=== PATIENT | female | born 1940 ===

== ENCOUNTER → 2019-01-11 14:22 | Outpatient (CLI) | payer MEDICARE, OTHER, SELFPAY ==
--- NOTE | 2019-01-11 | DI.MG.S_ITS ---
BILATERAL DIGITAL SCREENING MAMMOGRAM 3D/2D WITH CAD: 01/11/2019 CLINICAL: Baseline exam. Routine screening. Family history of breast cancer. No prior exams were available for comparison. There are scattered fibroglandular elements in both breasts. Current study was also evaluated with a Computer Aided Detection (CAD) system. Of note, the mediolateral oblique views were suboptimal in positioning as the patient was not able to be positioned for desired images; however, the best possible images were obtained. No significant masses, calcifications, or other findings are seen in either breast. IMPRESSION: NEGATIVE There is no mammographic evidence of malignancy. A 1 year screening mammogram is recommended. This exam was interpreted at Station ID: [id number]. NOTE: For mammograms, a report in lay terms will be sent to the patient. Approximately 15% of breast malignancies will not be visualized mammographically. In the management of a palpable breast mass, a negative mammogram must not discourage biopsy of a clinically suspicious lesion. Electronically Signed By: Valentin pierrey/:01/19/2019 07:24:55 letter sent: Normal Exam ACR BI-RADS Category 1: Negative [id number]
== END ==
PROVIDERS: Visit Provider Physician Assistant
DX: Z12.31 Encounter for screening mammogram for malignant neoplasm of breast (principal)
CPT/HCPCS: 77063; 77067

== ENCOUNTER → 2019-07-05 14:38 | Outpatient (ROUT) | payer MEDICARE, OTHER, SELFPAY ==
[2019-07-05 14:49] LABS: Add Manual Diff / Slide Review NO; Basophils Absolute Auto 100 /uL (0-100); Basophils Percent Auto 0.9 % (0-2); Eosinophils Absolute Auto 300 /uL (0-450); Hematocrit 46.1 % (36-46); Hemoglobin 15.9 g/dL (12.0-16.0); Lymphocytes Absolute Auto 2500 /uL (1100-4500); Lymphocytes Percent Auto 28.2 % (25-40); Mean Corpuscular HGB Conc 34.5 % (30-36); Mean Corpuscular Hemoglobin 32.6 PG (26-34); Mean Corpuscular Volume 94.5 fL (80-100); Monocytes Absolute Auto 700 /uL (0-900); Monocytes Percent Auto 7.9 % (3-14); Neutrophils Absolute Auto 5300 /uL (1500-7000); Platelet Count 191 X10^3/uL (150-400); Red Blood Cell Count 4.88 X10^6/uL (4.0-5.2); Red Cell Distribution Width 13.3 % (11.6-14.8); White Blood Cell Count 8.8 X10^3/uL (4.5-11.0)
[2019-07-05 15:44] LABS: Alanine Aminotransferase 14 IU/L (<35); Albumin 4.2 g/dL (3.5-5.0); Albumin Globulin Ratio 1.5 (1.0-2.8); Alkaline Phosphatase 55 U/L (38-126); Aspartate Aminotransferase 19 IU/L (14-36); BUN Creatinine Ratio 18.8 (6-22); Bilirubin Total 0.5 mg/dL (0.2-1.3); Blood Urea Nitrogen 15 mg/dL (7-17); Calcium 9.5 mg/dL (8.4-10.2); Carbon Dioxide 33 mmol/L (22-32); Chloride 97 mmol/L (98-107); Cholesterol 136 mg/dL (140-199); Estimated Glomerular Filt Rate > 60.0 mL/min (>60); Globulin 2.8 g/dL (1.7-4.1); Glucose 91 mg/dL (80-110); HDL Cholesterol 51 mg/dL (40-60); HEMOLYSIS 15 (0-50); LDL Cholesterol Calculated 60 mg/dL (<100); Potassium 3.7 mmol/L (3.4-5.1); Sodium 139 mmol/L (137-145); Triglycerides 125 mg/dL (35-150)
== END ==
PROVIDERS: Visit Provider Physician Assistant
DX: E78.5 Hyperlipidemia, unspecified (principal); I10 Essential (primary) hypertension
CPT/HCPCS: 80053; 80061; 85025

== ENCOUNTER 2019-08-02 14:21 | Emergency (ER) | payer MEDICARE, OTHER, SELFPAY ==
[2019-08-02 14:37] VITALS: BP 134/80; PULSE 108; RESP 17; TEMP 37; O2SAT 95; BMI 28.3
[2019-08-02 15:05] VITALS: BP 111/66; PULSE 93; RESP 17; O2SAT 94
--- NOTE | 2019-08-02 15:29 | DI.RAD.S_ITS ---
PROCEDURE: XR CHEST 2V INDICATIONS: R side chest discomfort TECHNIQUE: 2 views of the chest were acquired. COMPARISON: [facility], , CHEST 2 VIEW, 10/28/2010, 20:26. FINDINGS: Surgical changes and devices: None. Lungs and pleura: Lungs are clear. No pleural effusions or pneumothorax. Mediastinum: Mediastinal contours are normal. Heart size is normal. Bones and chest wall: No suspicious bony abnormalities. Soft tissues appear unremarkable. IMPRESSION: Negative chest. No acute cardiopulmonary process is evident. Dictated by: Lonny Corbin M.D. on 08/02/2019 at 15:05 Approved by: Lonny Corbin M.D. on 08/02/2019 at 15:09
--- NOTE | 2019-08-02 15:34 | ED_ITS ---
HPI - Chest Pain <VALENTINA Orellana - Last Filed: 08/02/19 20:30> General Chief Complaint: Chest Pain Stated Complaint: Chest pain and aching across upper body Time Seen by Provider: 08/02/19 14:49 Source: patient Mode of arrival: Ambulatory Limitations: no limitations History of Present Illness HPI narrative: This is a 79-year-old female, smoker, who presents to ED with chief complain of right-sided chest discomfort but not pain which started at rest last night. Patient denies any associated symptoms such as nausea, vomiting, sweats, breathing difficulty, lightheadedness. She reports has been working on quilting more recently and describes as pulled muscle like. Patient reports 1/10 muscle like aches without provoking or relieving factors. She went to bed and woke up with same discomfort but now it has been resolved since she came into ED. patient reports she has been coughing but not more than usual. She denies fever, chills, exposure to recent illness, or foreign travel. Patient denies recent weight gain, leg swelling. Patient reports she had sore throat a day or 2 ago but now it has improved. Patient contacted her primary care physician and was instructed to come in to ED for an evaluation. Patient states I am terrified for this virus. Patient has history of hypertension, hyperlipidemia, COPD. Related Data Home Medications Medication Instructions Recorded Confirmed albuterol sulfate 1 inh INHALATION PRN PRN 08/02/19 08/02/19 amlodipine 5 mg PO DAILY 08/02/19 08/02/19 beclomethasone dipropionate [Qvar 1 inh INHALATION BID 08/02/19 08/02/19 RediHaler] chlorthalidone 25 mg PO DAILY 08/02/19 08/02/19 lisinopril 20 mg PO BID 08/02/19 08/02/19 simvastatin 40 mg PO DAILY 08/02/19 08/02/19 Allergies Allergy/AdvReac Type Severity Reaction Status Date / Time No Known Drug Allergies Allergy Verified 08/02/19 14:36 Review of Systems <VALENTINA Orellana - Last Filed: 08/02/19 20:30> Review of Systems Narrative: General: Denies fever, chills, fatigue, malaise, sweats. HEENT: Denies sinus pain, ear pain, sore throat, difficulty swallowing, dizziness. Respiratory: Denies dyspnea, cough, wheezing, hemoptysis, sputum. Cardiovascular: See HPI Gastrointestinal: Denies nausea, vomiting, abdominal pain, diarrhea, constipation, melena. : Denies dysuria, frequency, incontinence, hematuria, urinary retention. Musculoskeletal: Denies weakness, joint pain or bony pain. Skin: Denies rash, skin lesions, or other. Neurologic: Denies weakness, headache, numbness, change in speech, confusion, seizures, incoordination. Psychiatric: No concerning psychosocial issues. 12-point review of systems is negative except for those stated above. Patient History <VALENTINA Orellana - Last Filed: 08/02/19 20:30> Medical History COPD (chronic obstructive pulmonary disease) (Acute) Hyperlipidemia (Acute) Hypertension (Acute) Surgical History H/O shoulder surgery (Acute) Social History Smoking Status: Current every day smoker Smoking Status: Current every day smoker Substance Use Type: does not use Exam <VALENTINA Orellana - Last Filed: 08/02/19 20:30> Narrative Exam Narrative: GEN: Alert, oriented x 3, well appearing and nourished, and in no acute distress. Head: Normal cephalic, atraumatic. No scalp or temporal tenderness, palpable mass or rash. EYES: Pupils are equal, round, and reactive to light and accommodation. Extraocular muscles are intact bilaterally. There is no subconjunctival hemorrhage, exudate and sclera non-icteric. ENT: Bilateral auditory canals and tympanic membranes clear. Hearing grossly intact. Nose without bleeding, purulent discharge or deviation. Facial sinuses nontender to palpate. Mucous membrane moist, no mucosal lesion. Throat without erythema, tonsillar hypertrophy or exudate. Uvula in midline, airway patent. Neck: Trachea in midline. No JVD, non-tender without lymphadenopathy. No masses or thyroid megaly. Supple, non-tender and no meningeal signs. CARDIAC: Normal regular rate and rhythm without murmurs, gallops, or rubs. No chest wall tenderness. No peripheral edema, cyanosis or pallor. Capillary refill is less than 2 seconds. RESPIRATORY: Lungs are clear to auscultate bilaterally. No cough, wheezes, rales, or rhonchi. No stridor, respiratory distress, increase work of breathi ng, or accessary muscle used. ABD: Abdomen soft, nontender and non-distended. No guarding or rebound tenderness to palpate. Bowel sounds are normal in all 4 quadrants. There is no palpable masses or organomegaly. EXT: Full painless ROM of all extremities with no loss of sensation, strength, effusion or edema. SKIN: Warm, dry, normal color for patient. No erythema, lesions or rash over visible areas. BACK: Nontender without deformity or crepitance. No flank tenderness. NEUROLOGICAL: Alert and oriented to place, time and person. Sensation and motor function intact bilaterally. No facial droops, dysphasia. PSYCHIATRIC: Good judgement and reason, without hallucinations, abnormal affect or abnormal behaviors during the examination. Initial Vital Signs Initial Vital Signs: Vital Signs Temperature 98.6 F 08/02/19 14:37 Pulse Rate 108 H 08/02/19 14:37 Respiratory Rate 17 08/02/19 14:37 Blood Pressure 134/80 08/02/19 14:37 Pulse Oximetry 95 08/02/19 14:37 <Cameron Matthew DO - Last Filed: 08/04/19 06:59> Initial Vital Signs Initial Vital Signs: Vital Signs Temperature 98.6 F 08/02/19 14:37 Pulse Rate 108 H 08/02/19 14:37 Respiratory Rate 17 08/02/19 14:37 Blood Pressure 134/80 08/02/19 14:37 Pulse Oximetry 95 08/02/19 14:37 Scores <[facility] - Last Filed: 08/02/19 20:30> GCS Caroline coma scale eye opening: Spontaneous Caroline coma scale verbal response: Orientated [place] coma scale motor response: Obey commands Caroline coma scale total score: 15 HEART Score Heart Score history: Slightly Suspicious Heart Score EKG: Normal Heart Score Age: > or = 65 years old Heart Score risk factors: 1-2 risk factors Course <[facility]oe - Last Filed: 08/02/19 20:30> Orders Ordered: Discontinued Medications Potassium Chloride (Klor-Con M20) 40 meq PO NOW ONE Stop: 08/02/19 16:47 Last Admin: 08/02/19 16:57 Dose: 40 meq Documented by: TITA Vital Signs Vital signs: Vital Signs - 8 hr 08/02/19 14:37 08/02/19 15:05 08/02/19 15:45 Temperature 98.6 F Pulse Rate 108 H 93 H 92 H Respiratory Rate 17 17 20 Blood Pressure 134/80 Blood Pressure [Left Arm] 111/66 131/69 Pulse Oximetry 95 94 96 08/02/19 16:05 08/02/19 17:00 Temperature Pulse Rate 87 92 H Respiratory Rate 17 20 Blood Pressure Blood Pressure [Left Arm] 119/70 116/83 Pulse Oximetry 94 95 <Cameron Matthew DO - Last Filed: 08/04/19 06:59> Orders Ordered: Discontinued Medications Potassium Chloride (Klor-Con M20) 40 meq PO NOW ONE Stop: 08/02/19 16:47 Last Admin: 08/02/19 16:57 Dose: 40 meq Documented by: TITA Vital Signs Vital signs: Vital Signs - 8 hr 08/02/19 14:37 08/02/19 15:05 08/02/19 15:45 Temperature 98.6 F Pulse Rate 108 H 93 H 92 H Respiratory Rate 17 17 20 Blood Pressure 134/80 Blood Pressure [Left Arm] 111/66 131/69 Pulse Oximetry 95 94 96 08/02/19 16:05 08/02/19 17:00 Temperature Pulse Rate 87 92 H Respiratory Rate 17 20 Blood Pressure Blood Pressure [Left Arm] 119/70 116/83 Pulse Oximetry 94 95 MDM - Chest Pain <VALENTINA Orellana - Last Filed: 08/02/19 20:30> Differential Diagnosis Differential diagnosis: Likely atypical chest pain, costochondritis and other Medical Records Data Attestation: I reviewed the patient's medical records. Lab Data Attestation: I reviewed the patient's lab results. Result diagrams: 08/02/19 14:58 08/02/19 14:58 Labs: Lab Results 08/02/19 08/02/19 Range/Units 14:58 14:58 WBC 14.5 H (4.5-11.0) X10^3/uL RBC 5.08 (4.0-5.2) X10^6/uL Hgb 16.5 H (12.0-16.0) g/dL Hct 47.6 H (36-46) % MCV 93.8 (80-100) fL MCH 32.6 (26-34) PG MCHC 34.7 (30-36) % RDW 13.1 (11.6-14.8) % Plt Count 260 (150-400) X10^3/uL Neut % (Auto) 79.1 H (50-75) % Lymph % (Auto) 13.8 L (25-40) % [place] % (Auto) 5.3 (3-14) % Eos % (Auto) 1.2 L (2-4) % Baso % (Auto) 0.6 (0-2) % Neut # (Auto) 06401 H (8042-4822) /uL Lymph # (Auto) 2000 (2499-1768) /uL [place] # (Auto) 800 (0-900) /uL Eos # (Auto) 200 (0-450) /uL Baso # (Auto) 100 (0-100) /uL Sodium 138 (137-145) mmol/L Potassium 3.0 L (3.4-5.1) mmol/L Chloride 99 (98-107) mmol/L Carbon Dioxide 31 (22-32) mmol/L BUN 13 (7-17) mg/dL Creatinine 0.80 (0.52-1.04) mg/dL Estimated GFR > 60.0 (>60) mL/min BUN/Creatinine Ratio 16.3 (6-22) Glucose 158 H (80-110) mg/dL Calcium 9.6 (8.4-10.2) mg/dL Total Bilirubin 0.6 (0.2-1.3) mg/dL AST 22 (14-36) IU/L ALT 14 (<35) IU/L Alkaline Phosphatase 62 (38-126) U/L Total Creatine Kinase 53 (30-135) U/L CK-MB (CK-2) TNP CK-MB (CK-2) Rel Index TNP Troponin I < 0.012 (0.01-0.034) ng/mL Total Protein 7.5 (6.3-8.2) g/dL Albumin 4.4 (3.5-5.0) g/dL Globulin 3.1 (1.7-4.1) g/dL Albumin/Globulin Ratio 1.4 (1.0-2.8) Lipase 38 (23-300) U/L Imaging Data Chest x-ray: Radiologist's Impression: [address] [address] XRay Report Signed Patient: Basia Chen EMR#: [id number] : 2Acct:[id number] Age/Sex: 79 / FDate of Service: 08/02/19 Loc: ED Accession Number: [id number] Procedure: XR chest 2V Ordering Provider: Raulito Rooney PROCEDURE: XR CHEST 2V INDICATIONS: R side chest discomfort TECHNIQUE: 2 views of the chest were acquired. COMPARISON: [facility], CHEST 2 VIEW, 10/28/2010, 20:26. FINDINGS: Surgical changes and devices: None. Lungs and pleura: Lungs are clear. No pleural effusions or pneumothorax. Mediastinum: Mediastinal contours are normal. Heart size is normal. Bones and chest wall: No suspicious bony abnormalities. Soft tissues appear unremarkable. IMPRESSION: Negative chest. No acute cardiopulmonary process is evident. Dictated by: Lonny Corbin M.D. on 08/02/2019 at 15:05 Approved by: Lonny Corbin M.D. on 08/02/2019 at 15:09 ECG Data Attestation: I personally reviewed and interpreted this ECG as follows: Interpretation: SR rate at 99 Normal [place]. NC int 134, QRS dur 80, QT/QTc 344/441 Previous EKG Sinus Tachycardia No obvious ST elevation or depression MDM Narrative Medical decision making narrative: This is a 79-year-old female who presents to ED with 1/10 very mild right side chest discomfort which started at rest last night and lasted until she came in to ED. Patient denied associated symptoms or provoking or relieving factors. Patient reports her concern is not her chest pain but the virus that is been going around and she can't afford to get ill from this. Patient has history of chronic lung disease, hypertension, and hyperlipidemia. EKG showed sinus rhythm rated 99. Patient's chest x-ray indicates no acute findings including pneumonia. Did not test for flu since patient does not exhibited body aches, fever, headache, or increasing or other respiratory symptoms. Cardiac enzymes were normal. Did not repeat 2nd cardiac enzymes since patient has had chest discomfort since last night till this afternoon. Patient reports she has been increasing activity with quilting last several days and describes her discomfort as pulled muscle but this has been resolved when patient was evaluated in ED. electrolytes were unremarkable except hypokalemia of 3.0. Patient is currently chlorthalidone, lisinopril and amlodipine to treat hypertension. Patient states she used to take potassium supplement but not currently. Patient was treated with 40 mEq of potassium chloride before discharged to home. Glucose elevated as 158. Normal lipase including other liver function test. Today's WBC was 14.5 with very mildly increased neutrophil. Unable to find sources for this. Patient denies abdominal discomfort or urinary symptoms. Patient advised to follow with her PCP next few days for re-evaluation on elevated WBC and hypokalemia. Return precautions were discussed with the patient and patient verbalized understanding and in agreement with treatment plan and she was very relieved to go home. <Cameron Matthew, DO - Last Filed: 08/04/19 06:59> Lab Data Labs: Lab Results 08/02/19 08/02/19 Range/Units 14:58 14:58 WBC 14.5 H (4.5-11.0) X10^3/uL RBC 5.08 (4.0-5.2) X10^6/uL Hgb 16.5 H (12.0-16.0) g/dL Hct 47.6 H (36-46) % MCV 93.8 (80-100) fL MCH 32.6 (26-34) PG MCHC 34.7 (30-36) % RDW 13.1 (11.6-14.8) % Plt Count 260 (150-400) X10^3/uL Neut % (Auto) 79.1 H (50-75) % Lymph % (Auto) 13.8 L (25-40) % [place] % (Auto) 5.3 (3-14) % Eos % (Auto) 1.2 L (2-4) % Baso % (Auto) 0.6 (0-2) % Neut # (Auto) 77395 H (6613-1472) /uL Lymph # (Auto) 2000 (6270-3028) /uL [place] # (Auto) 800 (0-900) /uL Eos # (Auto) 200 (0-450) /uL Baso # (Auto) 100 (0-100) /uL Sodium 138 (137-145) mmol/L Potassium 3.0 L (3.4-5.1) mmol/L Chloride 99 (98-107) mmol/L Carbon Dioxide 31 (22-32) mmol/L BUN 13 (7-17) mg/dL Creatinine 0.80 (0.52-1.04) mg/dL Estimated GFR > 60.0 (>60) mL/min BUN/Creatinine Ratio 16.3 (6-22) Glucose 158 H (80-110) mg/dL Calcium 9.6 (8.4-10.2) mg/dL Total Bilirubin 0.6 (0.2-1.3) mg/dL AST 22 (14-36) IU/L ALT 14 (<35) IU/L Alkaline Phosphatase 62 (38-126) U/L Total Creatine Kinase 53 (30-135) U/L CK-MB (CK-2) TNP CK-MB (CK-2) Rel Index TNP Troponin I < 0.012 (0.01-0.034) ng/mL Total Protein 7.5 (6.3-8.2) g/dL Albumin 4.4 (3.5-5.0) g/dL Globulin 3.1 (1.7-4.1) g/dL Albumin/Globulin Ratio 1.4 (1.0-2.8) Lipase 38 (23-300) U/L Discharge Plan Departure Patient Disposition: Home Clinical Impression: Atypical chest pain, Hypokalemia Discharge Date/Time: 08/02/19 17:15 Instructions: DI for Atypical Chest Pain, DI for Hypokalemia Activity Restrictions/Additional Instructions: You have been diagnosed with [atypical chest pain and hypokalemia. Your EKG looked good. Chest x-ray does not show acute findings such as pneumonia. Cardiac enzymes were normal. WBC was slightly elevated today 14.5 but no signs of acute infection per exam and history. Potassium level was 3.0 and you have been replaced with potassium supplements with with 40 mEq prior discharged to home. You are currently taking water pill, chlorthalidone. Also your glucose was slightly elevated as 158. ]. What to do: *Take your medications as directed. You can take [id number] Tylenol as needed for discomfort. The chest discomfort may related to increase in activity with quilting. *Follow up with your primary care provider in 2-3 days, call for an appointment to follow-up on her chest discomfort, elevated white count and low potassium level. Let them know you were seen in the ED and that we asked you to be seen in follow up. *Return to ED if you have any new, worsening, or concerning symptoms, such as [increasing pain, different type of pain, breathing difficulty, for to tolerate fluids, dizziness, or any acute concerns]. Prescriptions: No Action lisinopril 20 mg tablet 20 mg PO BID RF: 0 chlorthalidone 25 mg tablet 25 mg PO DAILY RF: 0 amlodipine 5 mg tablet 5 mg PO DAILY RF: 0 simvastatin 40 mg tablet 40 mg PO DAILY RF: 0 albuterol sulfate 90 mcg/actuation HFA aerosol inhaler 1 inh INHALATION PRN PRN (Reason: Shortness Of Breath) RF: 0 Qvar RediHaler 40 mcg/actuation HFA aerosol breath activated 1 inh INHALATION BID RF: 0 Referrals: Kaila Estrada PA-C [Primary Care Provider] - <Cameron Matthew, - Last Filed: 08/04/19 06:59> Sign Out Provider Sign Out Attestation: Dr Matthew Co-Sign Statement: I was available for consultation during this patient's emergency department visit. This chart is signed by myself for administrative purposes only. I did not have direct contact with this patient during this visit. They were seen independently by the APC.
[2019-08-02 15:40] LABS: Add Manual Diff / Slide Review NO; Alanine Aminotransferase 14 IU/L (<35); Albumin 4.4 g/dL (3.5-5.0); Albumin Globulin Ratio 1.4 (1.0-2.8); Alkaline Phosphatase 62 U/L (38-126); Aspartate Aminotransferase 22 IU/L (14-36); BUN Creatinine Ratio 16.3 (6-22); Basophils Absolute Auto 100 /uL (0-100); Basophils Percent Auto 0.6 % (0-2); Bilirubin Total 0.6 mg/dL (0.2-1.3); Blood Urea Nitrogen 13 mg/dL (7-17); Calcium 9.6 mg/dL (8.4-10.2); Carbon Dioxide 31 mmol/L (22-32); Chloride 99 mmol/L (98-107); Creatine Kinase 53 U/L (30-135); Eosinophils Absolute Auto 200 /uL (0-450); Eosinophils Percent Auto 1.2 % (2-4); Estimated Glomerular Filt Rate > 60.0 mL/min (>60); Globulin 3.1 g/dL (1.7-4.1); Glucose 158 mg/dL (80-110); HEMOLYSIS < 15 (0-50); Hematocrit 47.6 % (36-46); Hemoglobin 16.5 g/dL (12.0-16.0); Lipase 38 U/L (23-300); Lymphocytes Absolute Auto 2000 /uL (1100-4500); Lymphocytes Percent Auto 13.8 % (25-40); Mean Corpuscular HGB Conc 34.7 % (30-36); Mean Corpuscular Hemoglobin 32.6 PG (26-34); Mean Corpuscular Volume 93.8 fL (80-100); Monocytes Absolute Auto 800 /uL (0-900); Monocytes Percent Auto 5.3 % (3-14); Neutrophils Absolute Auto 11500 /uL (1500-7000); Neutrophils Percent Auto 79.1 % (50-75); Platelet Count 260 X10^3/uL (150-400); Red Blood Cell Count 5.08 X10^6/uL (4.0-5.2); Red Cell Distribution Width 13.1 % (11.6-14.8); Sodium 138 mmol/L (137-145); Total Protein 7.5 g/dL (6.3-8.2); White Blood Cell Count 14.5 X10^3/uL (4.5-11.0)
[2019-08-02 15:45] VITALS: BP 131/69; PULSE 92; RESP 20; O2SAT 96
[2019-08-02 15:51] LABS: Troponin I < 0.012 ng/mL (0.01-0.034)
[2019-08-02 16:05] VITALS: BP 119/70; PULSE 87; RESP 17; O2SAT 94
[2019-08-02] MEDS: POTASSIUM CHLORIDE 20 MEQ TAB 40 MEQ PO (16:57)
[2019-08-02 17:00] VITALS: BP 116/83; PULSE 92; RESP 20; O2SAT 95
== END 2019-08-02 17:15 | disposition home or self-care (01) ==
PROVIDERS: Emergency Provider Nurse Practitioner Family; PCP Physician Assistant
DX: R07.89 Other chest pain (principal); E87.6 Hypokalemia; R79.89 Other specified abnormal findings of blood chemistry; I10 Essential (primary) hypertension; E78.5 Hyperlipidemia, unspecified; J44.9 Chronic obstructive pulmonary disease, unspecified
CPT/HCPCS: 36415; 71046; 80053; 82550; 83690; 84484; 85025; 93005; 93010; 99283; 99284

== ENCOUNTER → 2020-01-04 19:05 | Outpatient (ROUT) | payer MEDICARE, OTHER, SELFPAY ==
[2020-01-04 19:13] LABS: Add Manual Diff / Slide Review NO; Basophils Absolute Auto 0 /uL (0-100); Basophils Percent Auto 0.4 % (0-2); Eosinophils Absolute Auto 300 /uL (0-450); Eosinophils Percent Auto 3.1 % (2-4); Hematocrit 44.6 % (36-46); Hemoglobin 15.1 g/dL (12.0-16.0); Lymphocytes Absolute Auto 2800 /uL (1100-4500); Lymphocytes Percent Auto 28.9 % (25-40); Mean Corpuscular Hemoglobin 32.4 PG (26-34); Mean Corpuscular Volume 95.4 fL (80-100); Monocytes Absolute Auto 700 /uL (0-900); Monocytes Percent Auto 7.7 % (3-14); Neutrophils Absolute Auto 5800 /uL (1500-7000); Neutrophils Percent Auto 59.9 % (50-75); Platelet Count 263 X10^3/uL (150-400); Red Blood Cell Count 4.68 X10^6/uL (4.0-5.2); Red Cell Distribution Width 13.1 % (11.6-14.8); White Blood Cell Count 9.7 X10^3/uL (4.5-11.0)
[2020-01-04 19:37] LABS: Alanine Aminotransferase 17 IU/L (<35); Albumin 4.2 g/dL (3.5-5.0); Albumin Globulin Ratio 1.7 (1.0-2.8); Alkaline Phosphatase 54 U/L (38-126); Aspartate Aminotransferase 27 IU/L (14-36); Bilirubin Total 0.7 mg/dL (0.2-1.3); Blood Urea Nitrogen 15 mg/dL (7-17); Calcium 9.9 mg/dL (8.4-10.2); Carbon Dioxide 30 mmol/L (22-32); Chloride 97 mmol/L (98-107); Estimated Glomerular Filt Rate > 60.0 mL/min (>60); Globulin 2.5 g/dL (1.7-4.1); Glucose 87 mg/dL (80-110); HEMOLYSIS < 15 (0-50); Potassium 3.6 mmol/L (3.4-5.1); Sodium 134 mmol/L (137-145); Total Protein 6.7 g/dL (6.3-8.2)
== END ==
PROVIDERS: Family Provider Physician Assistant; PCP Physician Assistant; Visit Provider Physician Assistant
DX: I10 Essential (primary) hypertension (principal); E78.5 Hyperlipidemia, unspecified; R35.0 Frequency of micturition
CPT/HCPCS: 80053; 85025; 87077; 87086; 87186

== ENCOUNTER 2020-03-08 13:45 | Outpatient (RCR) | payer MEDICARE, OTHER, SELFPAY ==
--- NOTE | 2019-11-18 11:01 | PT.OIE ---
Current Diagnoses Gluteal tendinitis, right hip (11/18/19) Difficulty in walking, not elsewhere classified (11/18/19) Abnormal posture (11/18/19) Weakness (11/18/19) Past Medical History (Last Reviewed 08/02/19 @ 15:39 by VALENTINA Orellana) COPD (chronic obstructive pulmonary disease) (Acute) Hyperlipidemia (Acute) Hypertension (Acute) Past Surgical History (Last Reviewed 08/02/19 @ 15:39 by VALENTINA Orellana) H/O shoulder surgery (Acute) Visit Care Team Role Provider Type Kaila Estrada PA-C Family Provider Advanced Pyrometer Operator Primary Care Provider Specialty: Internal Medicine Address: [address] [place] [address], [phone] Email: [email or web address] Narciso Almaraz MD Attending Provider Non-Staff Referring Provider Specialty: Orthopedics Address: [address] [place] [address], [id number] Email: Physical Therapy Initial Evaluation PT-OP-A Visit Information Start: 11/17/19 18:51 Freq: Status: Active Protocol: Document 11/18/19 09:49 [facility] (Rec: 11/18/19 10:45 [facility] [id number]) Out-Patient Physical Therapy Visit Information Visit Information Visit Type Initial Evaluation Visit Note 06/11 Visit Start Time 09:52 Visit Stop Time 10:54 Total Visit Minutes 62 Visit Number 1 Number of BIOLOGY INTERNSHIP Visits 0 PT-OP-B Current Condition Start: 11/17/19 18:51 Freq: Status: Active Protocol: Document 11/18/19 09:49 [facility] (Rec: 11/18/19 10:45 [facility] [id number]) Current Condition History of Current Condition Onset Date early July Current Complaints R hip History of Current Condition Pt stepped backwards and hit her upper glutes into a kitchen counter corner. Pt reprots pain was excrutiating and she felt like she couldn't put weight into it at first. She iced it but it didn't do much good. Pt feels like what is injured is deep. Pt reports she has had good results with her L shoulder rehab with US and feels like it would be helpful in this hip too. Pt reports pain gets so bad that she gets nauseus. She did not get checked out immediately d/ t COVID concerns. Reports it is all she can do to get through the grocery store 1x/ week. Pt has history of back pain that flares up that started 30 years ago d/t missing a step as she was coming down the stairs and ended up bouncing down on her butt. Pt reports she cannot do her chores around the house and does one thing a day and pays for it after. Pt has to use the rails to do reciprocal gait but where there is no rails she has to do step to. Prior she was able to do reciprocally without rail. She likes to stand to quilt and that does not seem to bother her except that she gets tired faster. Pt reprots she is really tired and feels like she is getting exhausted. Prior Treatments and Tests pain meds, PT for L shoulder after RCR Treatment Goals Patient/Caregiver Goals be able to walk and move to be able to travel with family, be able to tolerate long drives and transitions from sitting to standing, not to feel limited in activity PT-OP-C Subjective Start: 11/17/19 18:51 Freq: Status: Active Protocol: Document 11/18/19 09:49 [facility] (Rec: 11/18/19 10:45 [facility] [id number]) Patient Questionnaires Lower Extremity Functional Scale LEFS Score 13 LEFS Impairment 80 to 99% Impaired (Score 1-16 ) OP-PT Pain Assessment Location R hip Pain Location Details R gluteal region Intensity 9 Scale Used Numeric (0 - 10) Description Radiating,Sharp Description- Other sharp then radiates out Frequency Daily Pain Duration as soon as sit down and take the weight off Pain Aggravating Factors Changing Position,Activity, Walking,Stair Climbing,Lifting Other Pain Aggravating Factors standing up from sitting and first 5 steps, putting onshoes , chores Pain Alleviating Factors Heat,Medication,Sitting, Massage Other Pain Alleviating Factors pain patches PT-OP-F Manual Assessment Start: 11/17/19 18:51 Freq: Status: Active Protocol: Document 11/18/19 09:49 [facility] (Rec: 11/18/19 10:45 [facility] [id number]) Manual Assessments Soft Tissue Assessment Soft Tissue Mobility Assessment R QL tight & R glutes Joint Mobility Assessment Joint Mobility Assessment Iliac crest higher on R & equal greater trochanters PT-OP-G Mobility & Gait Start: 11/17/19 18:51 Freq: Status: Active Protocol: Document 11/18/19 09:49 [facility] (Rec: 11/18/19 10:45 [facility] [id number]) OP Gait Assessment Comments Gait Comments Inc lat lean and dec stance time on RLE, dec push off B PT-OP-J Posture/Palpation/Skin Start: 11/17/19 18:51 Freq: Status: Active Protocol: Document 11/18/19 09:49 [facility] (Rec: 11/18/19 11:01 [facility] [id number]) Posture Evaluation Comments Posture Comments fwd lean at hip and inc kyphosis PT-OP-K Range of Motion Start: 11/17/19 18:51 Freq: Status: Active Protocol: Document 11/18/19 09:49 [facility] (Rec: 11/18/19 10:45 [facility] [id number]) Hip Goniometric Range of Motion Hip Left Active Flexion w/Knee Flexed 102 Straight Leg Raise 76 Abduction 21 Internal Rotation 10 External Rotation 38 Right Active Testing Position Supine Flexion w/Knee Flexed 101 Straight Leg Raise 58 Abduction 22 Internal Rotation 4 External Rotation 23 PT-OP-L Special Tests Start: 11/17/19 18:51 Freq: Status: Active Protocol: Document 11/18/19 09:49 [facility] (Rec: 11/18/19 10:45 [facility] [id number]) Special Tests Lumbar Spine Special Tests Straight Leg Raise Test Results neg B Comments 76 deg L, 59 R Slump Test Results neg B Hip Special Tests Scour Test Test Results neg R PT-OP-M Strength Start: 11/17/19 18:51 Freq: Status: Active Protocol: Document 11/18/19 09:49 [facility] (Rec: 11/18/19 10:45 [facility] [id number]) Hip Strength Hip Manual Muscle Testing Right Flexion (L2) 3+ Fair+ Abduction 3 Fair External Rotation 3+ Fair+ Internal Rotation 3 Fair Left Flexion (L2) 3+ Fair+ Abduction 3+ Fair+ External Rotation 4 Good Internal Rotation 4 Good Knee Strength Knee Manual Muscle Testing Right Flexion (S2) 4+ Good+ Extension (L3) 4 Good Left Flexion (S2) 4+ Good+ Extension (L3) 4 Good Ankle/Foot Strength Ankle and Foot Manual Muscle Testing Right Dorsiflexion (L4) 4+ Good+ Plantarflexion (S1) 4+ Good+ Left Dorsiflexion (L4) 4+ Good+ Plantarflexion (S1) 4+ Good+ Comments PF tested seated PT-OP-Q Treatments Start: 11/17/19 18:51 Freq: Status: Active Protocol: Document 11/18/19 09:49 [facility] (Rec: 11/18/19 10:45 [facility] [id number]) Therapeutic Exercises Supine Exercises HS Supine Exercise Name stretch Side right Reps/Minutes 30 sec piriformis Supine Exercise Name stretch Side right Reps/Minutes 30 sec PT-OP-T Assessment and Plan Start: 11/17/19 18:51 Freq: Status: Active Protocol: Document 11/18/19 09:49 [facility] (Rec: 11/18/19 10:45 [facility] [id number]) Physical Therapy Assessment Rehab Potential Rehabilitation Potential Good Evaluation Complexity Number of Personal Factors/Comorbidities 3 or More Number of Body Systems Impaired 4 or More Clinical Presentation at Evaluation Evolving Impairments Impairments Activity Tolerance,Balance, Functional Activities, Functional Mobility,Gait,Pain, Posture,ROM,Soft Tissue Mobility,Strength,Transfers Goals activties Short Term Goal (STG) Pt will be able to ascend and descend stairs reciprocally without a rail. STG Duration 12/18/19 Auto Job Estimator Goal (LTG) Pt will be able to return to all typical activities including housework, grocery shopping, and transition from sit to stand and amb without inc pain. LTG Duration 01/18/20 LEFS Impairment 13/80 Short Term Goal (STG) Pt will improve score on LEFS to 25/80 to show improvement in functional abilities. STG Duration 12/18/19 Residential Goal (LTG) Pt will improve score on LEFS to 55/80 to show improvement in functional abilities. LTG Duration 01/18/20 strength Short Term Goal (STG) Pt will be indep with HEP. STG Duration 12/18/19 Auto Job Estimator Goal (LTG) Pt will have >4+/5 LE strength B in order to allow improvement in her ability to doing ADLs without pain. LTG Duration 01/18/20 Assessment Summary Assessment Pt presents with R gluteal pain after backing into the corner of a kitchen island about 3 months ago that has not resolved. She has sginfiicant pain mostly when she is on her feet and weightbearing especially when first standing and walking after sitting. She has limited ROM, dec flexibility, dec strength, impaired gait and significant pain that is limiting her ability to participate in ADLs. She would benefit from skilled PT in order to address these deficits. Physical Therapy Plan Frequency and Duration Frequency of Treatment 2x/Week Duration of Treatment 2 months Plan of Care Start Date 11/18/19 Plan of Care End Date 01/18/20 Therapeutic Interventions Therapeutic Interventions Aquatic Therapy,Balance Training,Gait Training,Home Exercise Program,Joint Mobilizations,Manual Therapy, Neuromuscular Re-education, Patient/Caregiver Education, Self-Care/Home Management,Soft Tissue Mobilization,Taping, Therapeutic Activities, Therapeutic Exercises Modalities Cold Pack/Ice Massage,Electric Stimulation,Hot Packs, Infrared Therapy,Iontophoresis ,Ultrasound Next Visit Focus/Plan Next Note Type Treatment Note Next Visit Plan review HEP, US to glutes, STM, recumbant stepper and leg press
--- NOTE | 2019-11-18 11:01 | PT.OPPOC ---
Physical, Occupational & Speech Therapy At [facility] Current Diagnoses Gluteal tendinitis, right hip (11/18/19) Difficulty in walking, not elsewhere classified (11/18/19) Abnormal posture (11/18/19) Weakness (11/18/19) Visit Care Team Role Provider Type Kaila Estrada PA-C Family Provider Advanced Supervisor Bindery Primary Care Provider Specialty: Internal Medicine Address: [address] [place] [address], [address] Email: [email or web address] Narciso Almaraz MD Attending Provider Non-Staff Referring Provider Specialty: Orthopedics Address: [address] [place] [address], [address] Email: Plan Of Care PT-OP-T Assessment and Plan Start: 11/17/19 18:51 Freq: Status: Active Protocol: Document 11/18/19 09:49 [facility] (Rec: 11/18/19 10:45 [facility] [id number]) Physical Therapy Assessment Rehab Potential Rehabilitation Potential Good Evaluation Complexity Number of Personal Factors/Comorbidities 3 or More Number of Body Systems Impaired 4 or More Clinical Presentation at Evaluation Evolving Impairments Impairments Activity Tolerance,Balance, Functional Activities, Functional Mobility,Gait,Pain, Posture,ROM,Soft Tissue Mobility,Strength,Transfers Goals activties Short Term Goal (STG) Pt will be able to ascend and descend stairs reciprocally without a rail. STG Duration 12/18/19 Fpc Goal (LTG) Pt will be able to return to all typical activities including housework, grocery shopping, and transition from sit to stand and amb without inc pain. LTG Duration 01/18/20 LEFS Impairment 13/80 Short Term Goal (STG) Pt will improve score on LEFS to 25/80 to show improvement in functional abilities. STG Duration 12/18/19 Science Professor Goal (LTG) Pt will improve score on LEFS to 55/80 to show improvement in functional abilities. LTG Duration 01/18/20 strength Short Term Goal (STG) Pt will be indep with HEP. STG Duration 12/18/19 Fpc Goal (LTG) Pt will have >4+/5 LE strength B in order to allow improvement in her ability to doing ADLs without pain. LTG Duration 01/18/20 Assessment Summary Assessment Pt presents with R gluteal pain after backing into the corner of a kitchen island about 3 months ago that has not resolved. She has sginfiicant pain mostly when she is on her feet and weightbearing especially when first standing and walking after sitting. She has limited ROM, dec flexibility, dec strength, impaired gait and significant pain that is limiting her ability to participate in ADLs. She would benefit from skilled PT in order to address these deficits. Physical Therapy Plan Frequency and Duration Frequency of Treatment 2x/Week Duration of Treatment 2 months Plan of Care Start Date 11/18/19 Plan of Care End Date 01/18/20 Therapeutic Interventions Therapeutic Interventions Aquatic Therapy,Balance Training,Gait Training,Home Exercise Program,Joint Mobilizations,Manual Therapy, Neuromuscular Re-education, Patient/Caregiver Education, Self-Care/Home Management,Soft Tissue Mobilization,Taping, Therapeutic Activities, Therapeutic Exercises Modalities Cold Pack/Ice Massage,Electric Stimulation,Hot Packs, Infrared Therapy,Iontophoresis ,Ultrasound Next Visit Focus/Plan Next Note Type Treatment Note Next Visit Plan review HEP, US to glutes, STM, recumbant stepper and leg press Plan of Care Dates Plan of Care Start Date 11/18/19 Plan of Care End Date 01/18/20 Electronically Signed by: Nathalie Riley, PT 11/18/19 1762 Please Sign and Return: I have reviewed this Plan of Care and certify that the skilled therapy services above are required to meet the patient?s needs. Physician Signature Date Printed Name and Credentials Clinical Instructor Signature Printed Name and Credentials
--- NOTE | 2019-11-24 15:16 | PT.OTN ---
Current Diagnoses Gluteal tendinitis, right hip (11/24/19) Difficulty in walking, not elsewhere classified (11/24/19) Abnormal posture (11/24/19) Weakness (11/24/19) Physical Therapy Treatment Note PT-OP-A Visit Information Start: 11/17/19 18:51 Freq: Status: Active Protocol: Document 11/24/19 14:33 [facility] (Rec: 11/24/19 15:16 [facility] [id number]) Out-Patient Physical Therapy Visit Information Visit Information Visit Type Treatment Note Visit Start Time 14:34 Visit Stop Time 15:29 Total Visit Minutes 54 Visit Number 2 Number of REMEDIAL MASSEUR Visits 0 PT-OP-B Current Condition Start: 11/17/19 18:51 Freq: Status: Active Protocol: Document 11/18/19 09:49 [facility] (Rec: 11/18/19 10:45 [facility] [id number]) Current Condition History of Current Condition Onset Date early July Current Complaints R hip History of Current Condition Pt stepped backwards and hit her upper glutes into a kitchen counter corner. Pt reprots pain was excrutiating and she felt like she couldn't put weight into it at first. She iced it but it didn't do much good. Pt feels like what is injured is deep. Pt reports she has had good results with her L shoulder rehab with US and feels like it would be helpful in this hip too. Pt reports pain gets so bad that she gets nauseus. She did not get checked out immediately d/ t COVID concerns. Reports it is all she can do to get through the grocery store 1x/ week. Pt has history of back pain that flares up that started 30 years ago d/t missing a step as she was coming down the stairs and ended up bouncing down on her butt. Pt reports she cannot do her chores around the house and does one thing a day and pays for it after. Pt has to use the rails to do reciprocal gait but where there is no rails she has to do step to. Prior she was able to do reciprocally without rail. She likes to stand to quilt and that does not seem to bother her except that she gets tired faster. Pt reprots she is really tired and feels like she is getting exhausted. Prior Treatments and Tests pain meds, PT for L shoulder after RCR Treatment Goals Patient/Caregiver Goals be able to walk and move to be able to travel with family, be able to tolerate long drives and transitions from sitting to standing, not to feel limited in activity PT-OP-C Subjective Start: 11/17/19 18:51 Freq: Status: Active Protocol: Document 11/24/19 14:33 [facility] (Rec: 11/24/19 15:16 [facility] [id number]) OP-PT Subjective Patient Comments Patient Comments Pt reports she feels like she is getting more motion but sthe is still having pian. PT-OP-F Manual Assessment Start: 11/17/19 18:51 Freq: Status: Active Protocol: Document 11/18/19 09:49 [facility] (Rec: 11/18/19 10:45 [facility] [id number]) Manual Assessments Soft Tissue Assessment Soft Tissue Mobility Assessment R QL tight & R glutes Joint Mobility Assessment Joint Mobility Assessment Iliac crest higher on R & equal greater trochanters PT-OP-G Mobility & Gait Start: 11/17/19 18:51 Freq: Status: Active Protocol: Document 11/18/19 09:49 [facility] (Rec: 11/18/19 10:45 [facility] [id number]) OP Gait Assessment Comments Gait Comments Inc lat lean and dec stance time on RLE, dec push off B PT-OP-J Posture/Palpation/Skin Start: 11/17/19 18:51 Freq: Status: Active Protocol: Document 11/18/19 09:49 [facility] (Rec: 11/18/19 11:01 [facility] [id number]) Posture Evaluation Comments Posture Comments fwd lean at hip and inc kyphosis PT-OP-K Range of Motion Start: 11/17/19 18:51 Freq: Status: Active Protocol: Document 11/18/19 09:49 [facility] (Rec: 11/18/19 10:45 [facility] [id number]) Hip Goniometric Range of Motion Hip Left Active Flexion w/Knee Flexed 102 Straight Leg Raise 76 Abduction 21 Internal Rotation 10 External Rotation 38 Right Active Testing Position Supine Flexion w/Knee Flexed 101 Straight Leg Raise 58 Abduction 22 Internal Rotation 4 External Rotation 23 PT-OP-L Special Tests Start: 11/17/19 18:51 Freq: Status: Active Protocol: Document 11/18/19 09:49 [facility] (Rec: 11/18/19 10:45 [facility] [id number]) Special Tests Lumbar Spine Special Tests Straight Leg Raise Test Results neg B Comments 76 deg L, 59 R Slump Test Results neg B Hip Special Tests Scour Test Test Results neg R PT-OP-M Strength Start: 11/17/19 18:51 Freq: Status: Active Protocol: Document 11/18/19 09:49 [facility] (Rec: 11/18/19 10:45 [facility] [id number]) Hip Strength Hip Manual Muscle Testing Right Flexion (L2) 3+ Fair+ Abduction 3 Fair External Rotation 3+ Fair+ Internal Rotation 3 Fair Left Flexion (L2) 3+ Fair+ Abduction 3+ Fair+ External Rotation 4 Good Internal Rotation 4 Good Knee Strength Knee Manual Muscle Testing Right Flexion (S2) 4+ Good+ Extension (L3) 4 Good Left Flexion (S2) 4+ Good+ Extension (L3) 4 Good Ankle/Foot Strength Ankle and Foot Manual Muscle Testing Right Dorsiflexion (L4) 4+ Good+ Plantarflexion (S1) 4+ Good+ Left Dorsiflexion (L4) 4+ Good+ Plantarflexion (S1) 4+ Good+ Comments PF tested seated PT-OP-Q Treatments Start: 11/17/19 18:51 Freq: Status: Active Protocol: Document 11/24/19 14:33 [facility] (Rec: 11/24/19 15:16 [facility] [id number]) Cardio Equipment Recumbent Elliptical (Biodex) Duration (Minutes) 6 Resistance 2 Seat Position 6 Gym Equipment Shuttle Recovery Bilateral Squats Resistance 75# Shuttle Recovery Platform Stable Reps/Time 15x2 Therapeutic Exercises Supine Exercises pelvic tilt Side bilateral Reps/Minutes 20 HS Supine Exercise Name stretch Side right Reps/Minutes 30 sec piriformis Supine Exercise Name stretch Side right Reps/Minutes 30 sec Sidelying Exercises reverse clamshells Side right Reps/Minutes 15x2 clamshells Side right Reps/Minutes 15x2 PT-OP-R Modalities Start: 11/17/19 18:51 Freq: Status: Active Protocol: Document 11/24/19 14:33 [facility] (Rec: 11/24/19 15:16 [facility] [id number]) Ultrasound Therapy Treatment Right Posterior Hip Treatment Duration (minutes) 8 Patient Position Sidelying Coupling Medium Ultrasound Gel Applicator Size (cm2) 10 Frequency Setting (mHz) 1 Mode Setting Continuous Intensity Setting (w/cm2) 1 PT-OP-T Assessment and Plan Start: 11/17/19 18:51 Freq: Status: Active Protocol: Document 11/24/19 14:33 [facility] (Rec: 11/24/19 15:16 [facility] [id number]) Physical Therapy Assessment Goals activties Short Term Goal (STG) Pt will be able to ascend and descend stairs reciprocally without a rail. STG Duration 12/18/19 Apple Sorter Goal (LTG) Pt will be able to return to all typical activities including housework, grocery shopping, and transition from sit to stand and amb without inc pain. LTG Duration 01/18/20 LEFS Impairment 13/80 Short Term Goal (STG) Pt will improve score on LEFS to 25/80 to show improvement in functional abilities. STG Duration 12/18/19 Nursing Home Goal (LTG) Pt will improve score on LEFS to 55/80 to show improvement in functional abilities. LTG Duration 01/18/20 strength Short Term Goal (STG) Pt will be indep with HEP. STG Duration 12/18/19 Apple Sorter Goal (LTG) Pt will have >4+/5 LE strength B in order to allow improvement in her ability to doing ADLs without pain. LTG Duration 01/18/20 Assessment Summary Assessment Pt did well with all strengthening exercises without inc pain except when transitioning from sit to stand to ambulate first few steps to change position. She was cued with strengthening exercises to only move hip. Pelvic tilt was difficult and required significant cueing. Physical Therapy Plan Frequency and Duration Frequency of Treatment 2x/Week Duration of Treatment 2 months Plan of Care Start Date 11/18/19 Plan of Care End Date 01/18/20 Next Visit Focus/Plan Next Note Type Treatment Note Next Visit Plan assess tolerance to US, work on strengthening, STM
--- NOTE | 2019-11-29 15:58 | PT.OTN ---
Current Diagnoses Gluteal tendinitis, right hip (11/29/19) Difficulty in walking, not elsewhere classified (11/29/19) Abnormal posture (11/29/19) Weakness (11/29/19) Physical Therapy Treatment Note PT-OP-A Visit Information Start: 11/17/19 18:51 Freq: Status: Active Protocol: Document 11/29/19 15:18 MB (Rec: 11/29/19 15:58 MB [id number]) Out-Patient Physical Therapy Visit Information Visit Information Visit Type Treatment Note Visit Start Time 15:18 Visit Stop Time 15:58 Total Visit Minutes 40 Visit Number 3 PT-OP-B Current Condition Start: 11/17/19 18:51 Freq: Status: Active Protocol: Document 11/18/19 09:49 LR (Rec: 11/18/19 10:45 [facility] [id number]) Current Condition History of Current Condition Onset Date early July Current Complaints R hip History of Current Condition Pt stepped backwards and hit her upper glutes into a kitchen counter corner. Pt reprots pain was excrutiating and she felt like she couldn't put weight into it at first. She iced it but it didn't do much good. Pt feels like what is injured is deep. Pt reports she has had good results with her L shoulder rehab with US and feels like it would be helpful in this hip too. Pt reports pain gets so bad that she gets nauseus. She did not get checked out immediately d/ t COVID concerns. Reports it is all she can do to get through the grocery store 1x/ week. Pt has history of back pain that flares up that started 30 years ago d/t missing a step as she was coming down the stairs and ended up bouncing down on her butt. Pt reports she cannot do her chores around the house and does one thing a day and pays for it after. Pt has to use the rails to do reciprocal gait but where there is no rails she has to do step to. Prior she was able to do reciprocally without rail. She likes to stand to quilt and that does not seem to bother her except that she gets tired faster. Pt reprots she is really tired and feels like she is getting exhausted. Prior Treatments and Tests pain meds, PT for L shoulder after RCR Treatment Goals Patient/Caregiver Goals be able to walk and move to be able to travel with family, be able to tolerate long drives and transitions from sitting to standing, not to feel limited in activity PT-OP-C Subjective Start: 11/17/19 18:51 Freq: Status: Active Protocol: Document 11/29/19 15:18 MB (Rec: 11/29/19 15:58 MB [id number]) OP-PT Subjective Patient Comments Patient Comments Pt states that she can actually do stairs now. She thinks the US is really helpful, and the exercises. PT-OP-F Manual Assessment Start: 11/17/19 18:51 Freq: Status: Active Protocol: Document 11/18/19 09:49 [facility] (Rec: 11/18/19 10:45 [facility] [id number]) Manual Assessments Soft Tissue Assessment Soft Tissue Mobility Assessment R QL tight & R glutes Joint Mobility Assessment Joint Mobility Assessment Iliac crest higher on R & equal greater trochanters PT-OP-G Mobility & Gait Start: 11/17/19 18:51 Freq: Status: Active Protocol: Document 11/18/19 09:49 [facility] (Rec: 11/18/19 10:45 [facility] [id number]) OP Gait Assessment Comments Gait Comments Inc lat lean and dec stance time on RLE, dec push off B PT-OP-J Posture/Palpation/Skin Start: 11/17/19 18:51 Freq: Status: Active Protocol: Document 11/18/19 09:49 [facility] (Rec: 11/18/19 11:01 [facility] [id number]) Posture Evaluation Comments Posture Comments fwd lean at hip and inc kyphosis PT-OP-K Range of Motion Start: 11/17/19 18:51 Freq: Status: Active Protocol: Document 11/18/19 09:49 [facility] (Rec: 11/18/19 10:45 [facility] [id number]) Hip Goniometric Range of Motion Hip Left Active Flexion w/Knee Flexed 102 Straight Leg Raise 76 Abduction 21 Internal Rotation 10 External Rotation 38 Right Active Testing Position Supine Flexion w/Knee Flexed 101 Straight Leg Raise 58 Abduction 22 Internal Rotation 4 External Rotation 23 PT-OP-L Special Tests Start: 11/17/19 18:51 Freq: Status: Active Protocol: Document 11/18/19 09:49 [facility] (Rec: 11/18/19 10:45 [facility] [id number]) Special Tests Lumbar Spine Special Tests Straight Leg Raise Test Results neg B Comments 76 deg L, 59 R Slump Test Results neg B Hip Special Tests Scour Test Test Results neg R PT-OP-M Strength Start: 11/17/19 18:51 Freq: Status: Active Protocol: Document 11/18/19 09:49 [facility] (Rec: 11/18/19 10:45 [facility] [id number]) Hip Strength Hip Manual Muscle Testing Right Flexion (L2) 3+ Fair+ Abduction 3 Fair External Rotation 3+ Fair+ Internal Rotation 3 Fair Left Flexion (L2) 3+ Fair+ Abduction 3+ Fair+ External Rotation 4 Good Internal Rotation 4 Good Knee Strength Knee Manual Muscle Testing Right Flexion (S2) 4+ Good+ Extension (L3) 4 Good Left Flexion (S2) 4+ Good+ Extension (L3) 4 Good Ankle/Foot Strength Ankle and Foot Manual Muscle Testing Right Dorsiflexion (L4) 4+ Good+ Plantarflexion (S1) 4+ Good+ Left Dorsiflexion (L4) 4+ Good+ Plantarflexion (S1) 4+ Good+ Comments PF tested seated PT-OP-Q Treatments Start: 11/17/19 18:51 Freq: Status: Active Protocol: Document 11/29/19 15:18 MB (Rec: 11/29/19 15:58 MB [id number]) Therapeutic Exercises Supine Exercises pelvic tilt Reps/Minutes 5 Comments Ed pt today on flattening spine first, knees bent HS Supine Exercise Name Stretch Side bilateral Reps/Minutes 30 sec piriformis Supine Exercise Name Stretch Side bilateral Reps/Minutes 30 sec Sidelying Exercises reverse clamshells Side bilateral Reps/Minutes 10x1 clamshells Side bilateral Reps/Minutes 10x1 PT-OP-R Modalities Start: 11/17/19 18:51 Freq: Status: Active Protocol: Document 11/29/19 15:18 MB (Rec: 11/29/19 15:58 MB [id number]) Ultrasound Therapy Treatment Right Posterior Hip Treatment Duration (minutes) 8 Patient Position Sidelying Coupling Medium Ultrasound Gel Applicator Size (cm2) 10 Frequency Setting (mHz) 1 Mode Setting Continuous Intensity Setting (w/cm2) 1 PT-OP-T Assessment and Plan Start: 11/17/19 18:51 Freq: Status: Active Protocol: Document 11/29/19 15:18 MB (Rec: 11/29/19 15:58 MB [id number]) Physical Therapy Assessment Goals activties Short Term Goal (STG) Pt will be able to ascend and descend stairs reciprocally without a rail. STG Duration 12/18/19 Correction Goal (LTG) Pt will be able to return to all typical activities including housework, grocery shopping, and transition from sit to stand and amb without inc pain. LTG Duration 01/18/20 LEFS Impairment 13/80 Short Term Goal (STG) Pt will improve score on LEFS to 25/80 to show improvement in functional abilities. STG Duration 12/18/19 Correction Goal (LTG) Pt will improve score on LEFS to 55/80 to show improvement in functional abilities. LTG Duration 01/18/20 strength Short Term Goal (STG) Pt will be indep with HEP. STG Duration 12/18/19 Team Supervisor Goal (LTG) Pt will have >4+/5 LE strength B in order to allow improvement in her ability to doing ADLs without pain. LTG Duration 01/18/20 Assessment Summary Assessment Ed pt in performing exercises on both sides. Pt presents with decreased adduction with left hip piriformis stretch. Physical Therapy Plan Frequency and Duration Frequency of Treatment 2x/Week Duration of Treatment 2 months Plan of Care Start Date 11/18/19 Plan of Care End Date 01/18/20 Therapeutic Interventions Therapeutic Interventions Aquatic Therapy,Balance Training,Gait Training,Home Exercise Program,Joint Mobilizations,Manual Therapy, Neuromuscular Re-education, Patient/Caregiver Education, Self-Care/Home Management,Soft Tissue Mobilization,Taping, Therapeutic Activities, Therapeutic Exercises Modalities Cold Pack/Ice Massage,Electric Stimulation,Hot Packs, Infrared Therapy,Iontophoresis ,Ultrasound Next Visit Focus/Plan Next Note Type Treatment Note Next Visit Plan Consider core progression in hook lying, work on strengthening, STM
--- NOTE | 2019-12-01 15:15 | PT.OTN ---
Current Diagnoses Gluteal tendinitis, right hip (12/01/19) Difficulty in walking, not elsewhere classified (12/01/19) Abnormal posture (12/01/19) Weakness (12/01/19) Physical Therapy Treatment Note PT-OP-A Visit Information Start: 11/17/19 18:51 Freq: Status: Active Protocol: Document 12/01/19 14:36 [facility] (Rec: 12/01/19 15:15 [facility] [id number]) Out-Patient Physical Therapy Visit Information Visit Information Visit Type Treatment Note Visit Start Time 14:34 Visit Stop Time 15:29 Total Visit Minutes 55 Visit Number 4 Number of WELL DIGGER Visits 0 PT-OP-B Current Condition Start: 11/17/19 18:51 Freq: Status: Active Protocol: Document 11/18/19 09:49 [facility] (Rec: 11/18/19 10:45 [facility] [id number]) Current Condition History of Current Condition Onset Date early July Current Complaints R hip History of Current Condition Pt stepped backwards and hit her upper glutes into a kitchen counter corner. Pt reprots pain was excrutiating and she felt like she couldn't put weight into it at first. She iced it but it didn't do much good. Pt feels like what is injured is deep. Pt reports she has had good results with her L shoulder rehab with US and feels like it would be helpful in this hip too. Pt reports pain gets so bad that she gets nauseus. She did not get checked out immediately d/ t COVID concerns. Reports it is all she can do to get through the grocery store 1x/ week. Pt has history of back pain that flares up that started 30 years ago d/t missing a step as she was coming down the stairs and ended up bouncing down on her butt. Pt reports she cannot do her chores around the house and does one thing a day and pays for it after. Pt has to use the rails to do reciprocal gait but where there is no rails she has to do step to. Prior she was able to do reciprocally without rail. She likes to stand to quilt and that does not seem to bother her except that she gets tired faster. Pt reprots she is really tired and feels like she is getting exhausted. Prior Treatments and Tests pain meds, PT for L shoulder after RCR Treatment Goals Patient/Caregiver Goals be able to walk and move to be able to travel with family, be able to tolerate long drives and transitions from sitting to standing, not to feel limited in activity PT-OP-C Subjective Start: 11/17/19 18:51 Freq: Status: Active Protocol: Document 12/01/19 14:36 LR (Rec: 12/01/19 15:15 [facility] [id number]) OP-PT Subjective Patient Comments Patient Comments Pt reports compliance with exercises. juaquin cross PT-OP-F Manual Assessment Start: 11/17/19 18:51 Freq: Status: Active Protocol: Document 11/18/19 09:49 [facility] (Rec: 11/18/19 10:45 [facility] [id number]) Manual Assessments Soft Tissue Assessment Soft Tissue Mobility Assessment R QL tight & R glutes Joint Mobility Assessment Joint Mobility Assessment Iliac crest higher on R & equal greater trochanters PT-OP-G Mobility & Gait Start: 11/17/19 18:51 Freq: Status: Active Protocol: Document 11/18/19 09:49 [facility] (Rec: 11/18/19 10:45 [facility] [id number]) OP Gait Assessment Comments Gait Comments Inc lat lean and dec stance time on RLE, dec push off B PT-OP-J Posture/Palpation/Skin Start: 11/17/19 18:51 Freq: Status: Active Protocol: Document 11/18/19 09:49 [facility] (Rec: 11/18/19 11:01 [facility] [id number]) Posture Evaluation Comments Posture Comments fwd lean at hip and inc kyphosis PT-OP-K Range of Motion Start: 11/17/19 18:51 Freq: Status: Active Protocol: Document 11/18/19 09:49 [facility] (Rec: 11/18/19 10:45 [facility] [id number]) Hip Goniometric Range of Motion Hip Left Active Flexion w/Knee Flexed 102 Straight Leg Raise 76 Abduction 21 Internal Rotation 10 External Rotation 38 Right Active Testing Position Supine Flexion w/Knee Flexed 101 Straight Leg Raise 58 Abduction 22 Internal Rotation 4 External Rotation 23 PT-OP-L Special Tests Start: 11/17/19 18:51 Freq: Status: Active Protocol: Document 11/18/19 09:49 [facility] (Rec: 11/18/19 10:45 [facility] [id number]) Special Tests Lumbar Spine Special Tests Straight Leg Raise Test Results neg B Comments 76 deg L, 59 R Slump Test Results neg B Hip Special Tests Scour Test Test Results neg R PT-OP-M Strength Start: 11/17/19 18:51 Freq: Status: Active Protocol: Document 11/18/19 09:49 [facility] (Rec: 11/18/19 10:45 [facility] [id number]) Hip Strength Hip Manual Muscle Testing Right Flexion (L2) 3+ Fair+ Abduction 3 Fair External Rotation 3+ Fair+ Internal Rotation 3 Fair Left Flexion (L2) 3+ Fair+ Abduction 3+ Fair+ External Rotation 4 Good Internal Rotation 4 Good Knee Strength Knee Manual Muscle Testing Right Flexion (S2) 4+ Good+ Extension (L3) 4 Good Left Flexion (S2) 4+ Good+ Extension (L3) 4 Good Ankle/Foot Strength Ankle and Foot Manual Muscle Testing Right Dorsiflexion (L4) 4+ Good+ Plantarflexion (S1) 4+ Good+ Left Dorsiflexion (L4) 4+ Good+ Plantarflexion (S1) 4+ Good+ Comments PF tested seated PT-OP-Q Treatments Start: 11/17/19 18:51 Freq: Status: Active Protocol: Document 12/01/19 14:36 [facility] (Rec: 12/01/19 15:15 [facility] [id number]) Cardio Equipment Recumbent Stepper (Sci-Fit) Duration (Minutes) 7 Resistance 3 Seat Position 8 Gym Equipment Shuttle Recovery Bilateral Squats Resistance 75# Shuttle Recovery Platform Stable Reps/Time 15x2 Therapeutic Exercises Supine Exercises bridge Side bilateral Reps/Minutes 10 Comments core focus LTR Supine Exercise Name core focus Side bilateral Reps/Minutes 10 Sidelying Exercises reverse clamshells Side bilateral Reps/Minutes 10x1 clamshells Side bilateral Reps/Minutes 10x1 Manual Therapy Treatment Soft Tissue Mobilization glutes Body Location R Mobilization Type Rolling,Sustained Pressure Intensity/Depth Superficial Body Position Sidelying PT-OP-R Modalities Start: 11/17/19 18:51 Freq: Status: Active Protocol: Document 12/01/19 14:36 [facility] (Rec: 12/01/19 15:15 [facility] [id number]) Hot Pack/Cold Pack Treatment Hot Pack Location R hip Patient Position Sidelying Treatment Duration (minutes) 15 Ultrasound Therapy Treatment Right Posterior Hip Treatment Duration (minutes) 8 Patient Position Sidelying Coupling Medium Ultrasound Gel Applicator Size (cm2) 10 Frequency Setting (mHz) 1 Mode Setting Continuous Intensity Setting (w/cm2) 1 PT-OP-T Assessment and Plan Start: 11/17/19 18:51 Freq: Status: Active Protocol: Document 12/01/19 14:36 [facility] (Rec: 12/01/19 15:15 [facility] [id number]) Physical Therapy Assessment Goals activties Short Term Goal (STG) Pt will be able to ascend and descend stairs reciprocally without a rail. STG Duration 12/18/19 Residential Goal (LTG) Pt will be able to return to all typical activities including housework, grocery shopping, and transition from sit to stand and amb without inc pain. LTG Duration 01/18/20 LEFS Impairment 13/80 Short Term Goal (STG) Pt will improve score on LEFS to 25/80 to show improvement in functional abilities. STG Duration 12/18/19 Supervisor Ovens Goal (LTG) Pt will improve score on LEFS to 55/80 to show improvement in functional abilities. LTG Duration 01/18/20 strength Short Term Goal (STG) Pt will be indep with HEP. STG Duration 12/18/19 Supervisor Ovens Goal (LTG) Pt will have >4+/5 LE strength B in order to allow improvement in her ability to doing ADLs without pain. LTG Duration 01/18/20 Assessment Summary Assessment Pt able to perform clamshells without painand cued for knees closer to chest for reverse to avoid pain. Pt tolerated progression of core exercises today. Physical Therapy Plan Frequency and Duration Frequency of Treatment 2x/Week Duration of Treatment 2 months Plan of Care Start Date 11/18/19 Plan of Care End Date 01/18/20 Next Visit Focus/Plan Next Note Type Treatment Note Next Visit Plan assess tolerance to US, work on strengthening, STM
--- NOTE | 2019-12-06 16:44 | PT.OTN ---
Current Diagnoses Gluteal tendinitis, right hip (12/06/19) Difficulty in walking, not elsewhere classified (12/06/19) Abnormal posture (12/06/19) Weakness (12/06/19) Physical Therapy Treatment Note PT-OP-A Visit Information Start: 11/17/19 18:51 Freq: Status: Active Protocol: Document 12/06/19 16:11 [facility] (Rec: 12/06/19 16:44 [facility] [id number]) Out-Patient Physical Therapy Visit Information Visit Information Visit Type Treatment Note Visit Start Time 16:05 Visit Stop Time 16:59 Total Visit Minutes 54 Visit Number 5 Number of GAS CUTTER Visits 0 PT-OP-B Current Condition Start: 11/17/19 18:51 Freq: Status: Active Protocol: Document 11/18/19 09:49 [facility] (Rec: 11/18/19 10:45 [facility] [id number]) Current Condition History of Current Condition Onset Date early July Current Complaints R hip History of Current Condition Pt stepped backwards and hit her upper glutes into a kitchen counter corner. Pt reprots pain was excrutiating and she felt like she couldn't put weight into it at first. She iced it but it didn't do much good. Pt feels like what is injured is deep. Pt reports she has had good results with her L shoulder rehab with US and feels like it would be helpful in this hip too. Pt reports pain gets so bad that she gets nauseus. She did not get checked out immediately d/ t COVID concerns. Reports it is all she can do to get through the grocery store 1x/ week. Pt has history of back pain that flares up that started 30 years ago d/t missing a step as she was coming down the stairs and ended up bouncing down on her butt. Pt reports she cannot do her chores around the house and does one thing a day and pays for it after. Pt has to use the rails to do reciprocal gait but where there is no rails she has to do step to. Prior she was able to do reciprocally without rail. She likes to stand to quilt and that does not seem to bother her except that she gets tired faster. Pt reprots she is really tired and feels like she is getting exhausted. Prior Treatments and Tests pain meds, PT for L shoulder after RCR Treatment Goals Patient/Caregiver Goals be able to walk and move to be able to travel with family, be able to tolerate long drives and transitions from sitting to standing, not to feel limited in activity PT-OP-C Subjective Start: 11/17/19 18:51 Freq: Status: Active Protocol: Document 12/06/19 16:11 [facility] (Rec: 12/06/19 16:44 [facility] [id number]) OP-PT Subjective Patient Comments Patient Comments Pt reports overall exercises going well. REverse clamshell she feels in hip flexors. PT-OP-F Manual Assessment Start: 11/17/19 18:51 Freq: Status: Active Protocol: Document 11/18/19 09:49 [facility] (Rec: 11/18/19 10:45 [facility] [id number]) Manual Assessments Soft Tissue Assessment Soft Tissue Mobility Assessment R QL tight & R glutes Joint Mobility Assessment Joint Mobility Assessment Iliac crest higher on R & equal greater trochanters PT-OP-G Mobility & Gait Start: 11/17/19 18:51 Freq: Status: Active Protocol: Document 11/18/19 09:49 [facility] (Rec: 11/18/19 10:45 [facility] [id number]) OP Gait Assessment Comments Gait Comments Inc lat lean and dec stance time on RLE, dec push off B PT-OP-J Posture/Palpation/Skin Start: 11/17/19 18:51 Freq: Status: Active Protocol: Document 11/18/19 09:49 [facility] (Rec: 11/18/19 11:01 [facility] [id number]) Posture Evaluation Comments Posture Comments fwd lean at hip and inc kyphosis PT-OP-K Range of Motion Start: 11/17/19 18:51 Freq: Status: Active Protocol: Document 11/18/19 09:49 [facility] (Rec: 11/18/19 10:45 [facility] [id number]) Hip Goniometric Range of Motion Hip Left Active Flexion w/Knee Flexed 102 Straight Leg Raise 76 Abduction 21 Internal Rotation 10 External Rotation 38 Right Active Testing Position Supine Flexion w/Knee Flexed 101 Straight Leg Raise 58 Abduction 22 Internal Rotation 4 External Rotation 23 PT-OP-L Special Tests Start: 11/17/19 18:51 Freq: Status: Active Protocol: Document 11/18/19 09:49 [facility] (Rec: 11/18/19 10:45 [facility] [id number]) Special Tests Lumbar Spine Special Tests Straight Leg Raise Test Results neg B Comments 76 deg L, 59 R Slump Test Results neg B Hip Special Tests Scour Test Test Results neg R PT-OP-M Strength Start: 11/17/19 18:51 Freq: Status: Active Protocol: Document 11/18/19 09:49 [facility] (Rec: 11/18/19 10:45 [facility] [id number]) Hip Strength Hip Manual Muscle Testing Right Flexion (L2) 3+ Fair+ Abduction 3 Fair External Rotation 3+ Fair+ Internal Rotation 3 Fair Left Flexion (L2) 3+ Fair+ Abduction 3+ Fair+ External Rotation 4 Good Internal Rotation 4 Good Knee Strength Knee Manual Muscle Testing Right Flexion (S2) 4+ Good+ Extension (L3) 4 Good Left Flexion (S2) 4+ Good+ Extension (L3) 4 Good Ankle/Foot Strength Ankle and Foot Manual Muscle Testing Right Dorsiflexion (L4) 4+ Good+ Plantarflexion (S1) 4+ Good+ Left Dorsiflexion (L4) 4+ Good+ Plantarflexion (S1) 4+ Good+ Comments PF tested seated PT-OP-Q Treatments Start: 11/17/19 18:51 Freq: Status: Active Protocol: Document 12/06/19 16:11 [facility] (Rec: 12/06/19 16:44 [facility] [id number]) Cardio Equipment Recumbent Elliptical (Biodex) Duration (Minutes) 7 Resistance 4 Seat Position 7 Gym Equipment Shuttle Recovery Bilateral Squats Resistance 75# Shuttle Recovery Platform Stable Reps/Time 15x2 Therapeutic Exercises Supine Exercises bridge Side bilateral Reps/Minutes 20 Comments core focus LTR Supine Exercise Name core focus Side bilateral Reps/Minutes 15 Sidelying Exercises reverse clamshells Side bilateral Reps/Minutes 10x1 PT-OP-R Modalities Start: 11/17/19 18:51 Freq: Status: Active Protocol: Document 12/06/19 16:11 [facility] (Rec: 12/06/19 16:44 [facility] [id number]) Hot Pack/Cold Pack Treatment Hot Pack Location R hip Patient Position Sidelying Treatment Duration (minutes) 15 Ultrasound Therapy Treatment Right Posterior Hip Treatment Duration (minutes) 8 Patient Position Sidelying Coupling Medium Ultrasound Gel Applicator Size (cm2) 10 Frequency Setting (mHz) 1 Mode Setting Continuous Intensity Setting (w/cm2) 1 PT-OP-T Assessment and Plan Start: 11/17/19 18:51 Freq: Status: Active Protocol: Document 12/06/19 16:11 [facility] (Rec: 12/06/19 16:44 [facility] [id number]) Physical Therapy Assessment Goals activties Short Term Goal (STG) Pt will be able to ascend and descend stairs reciprocally without a rail. STG Duration 12/18/19 Assisted Goal (LTG) Pt will be able to return to all typical activities including housework, grocery shopping, and transition from sit to stand and amb without inc pain. LTG Duration 01/18/20 LEFS Impairment 13/80 Short Term Goal (STG) Pt will improve score on LEFS to 25/80 to show improvement in functional abilities. STG Duration 12/18/19 Spud Sorter Goal (LTG) Pt will improve score on LEFS to 55/80 to show improvement in functional abilities. LTG Duration 01/18/20 strength Short Term Goal (STG) Pt will be indep with HEP. STG Duration 12/18/19 Spud Sorter Goal (LTG) Pt will have >4+/5 LE strength B in order to allow improvement in her ability to doing ADLs without pain. LTG Duration 01/18/20 Assessment Summary Assessment Pt did better with transitions from sit<>stand today with less limping noted throughout session. Less cueing required from core exercsies today Physical Therapy Plan Frequency and Duration Frequency of Treatment 2x/Week Duration of Treatment 2 months Plan of Care Start Date 11/18/19 Plan of Care End Date 01/18/20 Next Visit Focus/Plan Next Note Type Treatment Note Next Visit Plan assess tolerance to US, work on strengthening, STM
--- NOTE | 2019-12-08 15:14 | PT.OTN ---
Current Diagnoses Gluteal tendinitis, right hip (12/08/19) Difficulty in walking, not elsewhere classified (12/08/19) Abnormal posture (12/08/19) Weakness (12/08/19) Physical Therapy Treatment Note PT-OP-A Visit Information Start: 11/17/19 18:51 Freq: Status: Active Protocol: Document 12/08/19 14:33 [facility] (Rec: 12/08/19 15:14 [facility] [id number]) Out-Patient Physical Therapy Visit Information Visit Information Visit Type Treatment Note Visit Start Time 14:30 Visit Stop Time 15:10 Total Visit Minutes 40 Visit Number 6 Number of AMUSEMENT [employer] ENTERTAINER Visits 0 PT-OP-B Current Condition Start: 11/17/19 18:51 Freq: Status: Active Protocol: Document 11/18/19 09:49 [facility] (Rec: 11/18/19 10:45 [facility] [id number]) Current Condition History of Current Condition Onset Date early July Current Complaints R hip History of Current Condition Pt stepped backwards and hit her upper glutes into a kitchen counter corner. Pt reprots pain was excrutiating and she felt like she couldn't put weight into it at first. She iced it but it didn't do much good. Pt feels like what is injured is deep. Pt reports she has had good results with her L shoulder rehab with US and feels like it would be helpful in this hip too. Pt reports pain gets so bad that she gets nauseus. She did not get checked out immediately d/ t COVID concerns. Reports it is all she can do to get through the grocery store 1x/ week. Pt has history of back pain that flares up that started 30 years ago d/t missing a step as she was coming down the stairs and ended up bouncing down on her butt. Pt reports she cannot do her chores around the house and does one thing a day and pays for it after. Pt has to use the rails to do reciprocal gait but where there is no rails she has to do step to. Prior she was able to do reciprocally without rail. She likes to stand to quilt and that does not seem to bother her except that she gets tired faster. Pt reprots she is really tired and feels like she is getting exhausted. Prior Treatments and Tests pain meds, PT for L shoulder after RCR Treatment Goals Patient/Caregiver Goals be able to walk and move to be able to travel with family, be able to tolerate long drives and transitions from sitting to standing, not to feel limited in activity PT-OP-C Subjective Start: 11/17/19 18:51 Freq: Status: Active Protocol: Document 12/08/19 14:33 [facility] (Rec: 12/08/19 15:14 [facility] [id number]) OP-PT Subjective Patient Comments Patient Comments Pt reports she got some irritation in ant hip after reverse clamshells. Post hip pain is about 2 points better. Patient Reported Progress Improving PT-OP-F Manual Assessment Start: 11/17/19 18:51 Freq: Status: Active Protocol: Document 11/18/19 09:49 [facility] (Rec: 11/18/19 10:45 [facility] [id number]) Manual Assessments Soft Tissue Assessment Soft Tissue Mobility Assessment R QL tight & R glutes Joint Mobility Assessment Joint Mobility Assessment Iliac crest higher on R & equal greater trochanters PT-OP-G Mobility & Gait Start: 11/17/19 18:51 Freq: Status: Active Protocol: Document 11/18/19 09:49 [facility] (Rec: 11/18/19 10:45 [facility] [id number]) OP Gait Assessment Comments Gait Comments Inc lat lean and dec stance time on RLE, dec push off B PT-OP-J Posture/Palpation/Skin Start: 11/17/19 18:51 Freq: Status: Active Protocol: Document 11/18/19 09:49 [facility] (Rec: 11/18/19 11:01 [facility] [id number]) Posture Evaluation Comments Posture Comments fwd lean at hip and inc kyphosis PT-OP-K Range of Motion Start: 11/17/19 18:51 Freq: Status: Active Protocol: Document 11/18/19 09:49 [facility] (Rec: 11/18/19 10:45 [facility] [id number]) Hip Goniometric Range of Motion Hip Left Active Flexion w/Knee Flexed 102 Straight Leg Raise 76 Abduction 21 Internal Rotation 10 External Rotation 38 Right Active Testing Position Supine Flexion w/Knee Flexed 101 Straight Leg Raise 58 Abduction 22 Internal Rotation 4 External Rotation 23 PT-OP-L Special Tests Start: 11/17/19 18:51 Freq: Status: Active Protocol: Document 11/18/19 09:49 [facility] (Rec: 11/18/19 10:45 [facility] [id number]) Special Tests Lumbar Spine Special Tests Straight Leg Raise Test Results neg B Comments 76 deg L, 59 R Slump Test Results neg B Hip Special Tests Scour Test Test Results neg R PT-OP-M Strength Start: 11/17/19 18:51 Freq: Status: Active Protocol: Document 11/18/19 09:49 [facility] (Rec: 11/18/19 10:45 [facility] [id number]) Hip Strength Hip Manual Muscle Testing Right Flexion (L2) 3+ Fair+ Abduction 3 Fair External Rotation 3+ Fair+ Internal Rotation 3 Fair Left Flexion (L2) 3+ Fair+ Abduction 3+ Fair+ External Rotation 4 Good Internal Rotation 4 Good Knee Strength Knee Manual Muscle Testing Right Flexion (S2) 4+ Good+ Extension (L3) 4 Good Left Flexion (S2) 4+ Good+ Extension (L3) 4 Good Ankle/Foot Strength Ankle and Foot Manual Muscle Testing Right Dorsiflexion (L4) 4+ Good+ Plantarflexion (S1) 4+ Good+ Left Dorsiflexion (L4) 4+ Good+ Plantarflexion (S1) 4+ Good+ Comments PF tested seated PT-OP-Q Treatments Start: 11/17/19 18:51 Freq: Status: Active Protocol: Document 12/08/19 14:33 [facility] (Rec: 12/08/19 15:14 [facility] [id number]) Cardio Equipment Recumbent Elliptical (Biodex) Duration (Minutes) 6 Resistance 5 Seat Position 7 Gym Equipment Shuttle Recovery Bilateral Squats Resistance 75# Shuttle Recovery Platform Stable Reps/Time 15x2 Therapeutic Exercises Standing Exercises squat Standing Exercise Name at bar & over chair Side bilateral Reps/Minutes 20 Manual Therapy Treatment Soft Tissue Mobilization iliacus Body Location R Mobilization Type Strumming,Sustained Pressure Intensity/Depth Moderate glutes Body Location R Mobilization Type Rolling,Sustained Pressure Intensity/Depth Moderate Body Position Sidelying Joint Mobilizations hip Joint R Direction inf FM PT-OP-R Modalities Start: 11/17/19 18:51 Freq: Status: Active Protocol: Document 12/08/19 14:33 [facility] (Rec: 12/08/19 15:14 [facility] [id number]) Ultrasound Therapy Treatment Right Posterior Hip Treatment Duration (minutes) 8 Patient Position Sidelying Coupling Medium Ultrasound Gel Applicator Size (cm2) 10 Frequency Setting (mHz) 1 Mode Setting Continuous Intensity Setting (w/cm2) 1 PT-OP-T Assessment and Plan Start: 11/17/19 18:51 Freq: Status: Active Protocol: Document 12/08/19 14:33 [facility] (Rec: 12/08/19 15:14 [facility] [id number]) Physical Therapy Assessment Goals activties Short Term Goal (STG) Pt will be able to ascend and descend stairs reciprocally without a rail. STG Duration 12/18/19 Circular Stuffer Goal (LTG) Pt will be able to return to all typical activities including housework, grocery shopping, and transition from sit to stand and amb without inc pain. LTG Duration 01/18/20 LEFS Impairment 13/80 Short Term Goal (STG) Pt will improve score on LEFS to 25/80 to show improvement in functional abilities. STG Duration 12/18/19 Circular Stuffer Goal (LTG) Pt will improve score on LEFS to 55/80 to show improvement in functional abilities. LTG Duration 01/18/20 strength Short Term Goal (STG) Pt will be indep with HEP. STG Duration 12/18/19 Circular Stuffer Goal (LTG) Pt will have >4+/5 LE strength B in order to allow improvement in her ability to doing ADLs without pain. LTG Duration 01/18/20 Assessment Summary Assessment Significant cueing and resetting required for squatting for knees not to go past toes. Improving soft tissue mobility. Improved hip flex w/inf glide Physical Therapy Plan Frequency and Duration Frequency of Treatment 2x/Week Duration of Treatment 2 months Plan of Care Start Date 11/18/19 Plan of Care End Date 01/18/20 Next Visit Focus/Plan Next Note Type Treatment Note Next Visit Plan assess tolerance to US, work on strengthening, STM
--- NOTE | 2019-12-13 16:01 | PT.OTN ---
Current Diagnoses Gluteal tendinitis, right hip (12/13/19) Difficulty in walking, not elsewhere classified (12/13/19) Abnormal posture (12/13/19) Weakness (12/13/19) Physical Therapy Treatment Note PT-OP-A Visit Information Start: 11/17/19 18:51 Freq: Status: Active Protocol: Document 12/13/19 15:23 [facility] (Rec: 12/13/19 16:01 [facility] [id number]) Out-Patient Physical Therapy Visit Information Visit Information Visit Type Treatment Note Visit Start Time 15:17 Visit Stop Time 15:57 Total Visit Minutes 40 Visit Number 7 Number of DIRECTOR OF PROVIDER RELATIONS Visits 0 PT-OP-B Current Condition Start: 11/17/19 18:51 Freq: Status: Active Protocol: Document 11/18/19 09:49 [facility] (Rec: 11/18/19 10:45 [facility] [id number]) Current Condition History of Current Condition Onset Date early July Current Complaints R hip History of Current Condition Pt stepped backwards and hit her upper glutes into a kitchen counter corner. Pt reprots pain was excrutiating and she felt like she couldn't put weight into it at first. She iced it but it didn't do much good. Pt feels like what is injured is deep. Pt reports she has had good results with her L shoulder rehab with US and feels like it would be helpful in this hip too. Pt reports pain gets so bad that she gets nauseus. She did not get checked out immediately d/ t COVID concerns. Reports it is all she can do to get through the grocery store 1x/ week. Pt has history of back pain that flares up that started 30 years ago d/t missing a step as she was coming down the stairs and ended up bouncing down on her butt. Pt reports she cannot do her chores around the house and does one thing a day and pays for it after. Pt has to use the rails to do reciprocal gait but where there is no rails she has to do step to. Prior she was able to do reciprocally without rail. She likes to stand to quilt and that does not seem to bother her except that she gets tired faster. Pt reprots she is really tired and feels like she is getting exhausted. Prior Treatments and Tests pain meds, PT for L shoulder after RCR Treatment Goals Patient/Caregiver Goals be able to walk and move to be able to travel with family, be able to tolerate long drives and transitions from sitting to standing, not to feel limited in activity PT-OP-C Subjective Start: 11/17/19 18:51 Freq: Status: Active Protocol: Document 12/13/19 15:23 [facility] (Rec: 12/13/19 16:01 [facility] [id number]) OP-PT Subjective Patient Comments Patient Comments Pt reports she feels like her hip is doing better. its sore right now though Patient Reported Progress Improving PT-OP-F Manual Assessment Start: 11/17/19 18:51 Freq: Status: Active Protocol: Document 11/18/19 09:49 [facility] (Rec: 11/18/19 10:45 [facility] [id number]) Manual Assessments Soft Tissue Assessment Soft Tissue Mobility Assessment R QL tight & R glutes Joint Mobility Assessment Joint Mobility Assessment Iliac crest higher on R & equal greater trochanters PT-OP-G Mobility & Gait Start: 11/17/19 18:51 Freq: Status: Active Protocol: Document 11/18/19 09:49 [facility] (Rec: 11/18/19 10:45 [facility] [id number]) OP Gait Assessment Comments Gait Comments Inc lat lean and dec stance time on RLE, dec push off B PT-OP-J Posture/Palpation/Skin Start: 11/17/19 18:51 Freq: Status: Active Protocol: Document 11/18/19 09:49 [facility] (Rec: 11/18/19 11:01 [facility] [id number]) Posture Evaluation Comments Posture Comments fwd lean at hip and inc kyphosis PT-OP-K Range of Motion Start: 11/17/19 18:51 Freq: Status: Active Protocol: Document 11/18/19 09:49 [facility] (Rec: 11/18/19 10:45 [facility] [id number]) Hip Goniometric Range of Motion Hip Left Active Flexion w/Knee Flexed 102 Straight Leg Raise 76 Abduction 21 Internal Rotation 10 External Rotation 38 Right Active Testing Position Supine Flexion w/Knee Flexed 101 Straight Leg Raise 58 Abduction 22 Internal Rotation 4 External Rotation 23 PT-OP-L Special Tests Start: 11/17/19 18:51 Freq: Status: Active Protocol: Document 11/18/19 09:49 [facility] (Rec: 11/18/19 10:45 [facility] [id number]) Special Tests Lumbar Spine Special Tests Straight Leg Raise Test Results neg B Comments 76 deg L, 59 R Slump Test Results neg B Hip Special Tests Scour Test Test Results neg R PT-OP-M Strength Start: 11/17/19 18:51 Freq: Status: Active Protocol: Document 11/18/19 09:49 [facility] (Rec: 11/18/19 10:45 [facility] [id number]) Hip Strength Hip Manual Muscle Testing Right Flexion (L2) 3+ Fair+ Abduction 3 Fair External Rotation 3+ Fair+ Internal Rotation 3 Fair Left Flexion (L2) 3+ Fair+ Abduction 3+ Fair+ External Rotation 4 Good Internal Rotation 4 Good Knee Strength Knee Manual Muscle Testing Right Flexion (S2) 4+ Good+ Extension (L3) 4 Good Left Flexion (S2) 4+ Good+ Extension (L3) 4 Good Ankle/Foot Strength Ankle and Foot Manual Muscle Testing Right Dorsiflexion (L4) 4+ Good+ Plantarflexion (S1) 4+ Good+ Left Dorsiflexion (L4) 4+ Good+ Plantarflexion (S1) 4+ Good+ Comments PF tested seated PT-OP-Q Treatments Start: 11/17/19 18:51 Freq: Status: Active Protocol: Document 12/13/19 15:23 [facility] (Rec: 12/13/19 16:01 [facility] [id number]) Cardio Equipment Recumbent Stepper (Sci-Fit) Duration (Minutes) 6 Resistance 5 Seat Position 8 Therapeutic Exercises Standing Exercises lunge Side bilateral Reps/Minutes 12 squat Standing Exercise Name at bar & over chair Side bilateral Reps/Minutes 20 Manual Therapy Treatment Soft Tissue Mobilization glutes Body Location R Mobilization Type Rolling,Sustained Pressure Intensity/Depth Moderate Body Position Sidelying Joint Mobilizations hip Joint R Direction inf & on axis IR FM PT-OP-R Modalities Start: 11/17/19 18:51 Freq: Status: Active Protocol: Document 12/13/19 15:23 [facility] (Rec: 12/13/19 16:01 [facility] [id number]) Ultrasound Therapy Treatment Right Posterior Hip Treatment Duration (minutes) 8 Patient Position Sidelying Coupling Medium Ultrasound Gel Applicator Size (cm2) 10 Frequency Setting (mHz) 1 Mode Setting Continuous Intensity Setting (w/cm2) 1 PT-OP-T Assessment and Plan Start: 11/17/19 18:51 Freq: Status: Active Protocol: Document 12/13/19 15:23 [facility] (Rec: 12/13/19 16:01 [facility] [id number]) Physical Therapy Assessment Goals activties Short Term Goal (STG) Pt will be able to ascend and descend stairs reciprocally without a rail. STG Duration 12/18/19 Correction Goal (LTG) Pt will be able to return to all typical activities including housework, grocery shopping, and transition from sit to stand and amb without inc pain. LTG Duration 01/18/20 LEFS Impairment 13/80 Short Term Goal (STG) Pt will improve score on LEFS to 25/80 to show improvement in functional abilities. STG Duration 12/18/19 Correction Goal (LTG) Pt will improve score on LEFS to 55/80 to show improvement in functional abilities. LTG Duration 01/18/20 strength Short Term Goal (STG) Pt will be indep with HEP. STG Duration 12/18/19 Correction Goal (LTG) Pt will have >4+/5 LE strength B in order to allow improvement in her ability to doing ADLs without pain. LTG Duration 01/18/20 Assessment Summary Assessment Pt improved with formw ith squats but required a lot of cueing for lunges. She is improivng with soft tiessue mobility and improved ROM after manual treatment to hip. Pt reports today being first day walkingw ithout pain. Physical Therapy Plan Frequency and Duration Frequency of Treatment 2x/Week Duration of Treatment 2 months Plan of Care Start Date 11/18/19 Plan of Care End Date 01/18/20 Next Visit Focus/Plan Next Note Type Treatment Note Next Visit Plan work on strengthening, STM
--- NOTE | 2019-12-15 14:28 | PT.OTN ---
Current Diagnoses Gluteal tendinitis, right hip (12/15/19) Difficulty in walking, not elsewhere classified (12/15/19) Abnormal posture (12/15/19) Weakness (12/15/19) Physical Therapy Treatment Note PT-OP-A Visit Information Start: 11/17/19 18:51 Freq: Status: Active Protocol: Document 12/15/19 13:48 LR (Rec: 12/15/19 14:28 [facility] [id number]) Out-Patient Physical Therapy Visit Information Visit Information Visit Type Treatment Note Visit Note 01/09 Visit Start Time 13:45 Visit Stop Time 14:27 Total Visit Minutes 42 Visit Number 8 Number of WOMEN DESIGNER Visits 0 PT-OP-B Current Condition Start: 11/17/19 18:51 Freq: Status: Active Protocol: Document 11/18/19 09:49 LR (Rec: 11/18/19 10:45 [facility] [id number]) Current Condition History of Current Condition Onset Date early July Current Complaints R hip History of Current Condition Pt stepped backwards and hit her upper glutes into a kitchen counter corner. Pt reprots pain was excrutiating and she felt like she couldn't put weight into it at first. She iced it but it didn't do much good. Pt feels like what is injured is deep. Pt reports she has had good results with her L shoulder rehab with [facility] and feels like it would be helpful in this hip too. Pt reports pain gets so bad that she gets nauseus. She did not get checked out immediately d/ t COVID concerns. Reports it is all she can do to get through the grocery store 1x/ week. Pt has history of back pain that flares up that started 30 years ago d/t missing a step as she was coming down the stairs and ended up bouncing down on her butt. Pt reports she cannot do her chores around the house and does one thing a day and pays for it after. Pt has to use the rails to do reciprocal gait but where there is no rails she has to do step to. Prior she was able to do reciprocally without rail. She likes to stand to quilt and that does not seem to bother her except that she gets tired faster. Pt reprots she is really tired and feels like she is getting exhausted. Prior Treatments and Tests pain meds, PT for L shoulder after RCR Treatment Goals Patient/Caregiver Goals be able to walk and move to be able to travel with family, be able to tolerate long drives and transitions from sitting to standing, not to feel limited in activity PT-OP-C Subjective Start: 11/17/19 18:51 Freq: Status: Active Protocol: Document 12/15/19 13:48 LR (Rec: 12/15/19 14:28 [facility] [id number]) OP-PT Subjective Patient Comments Patient Comments Pt reports pain comes and goes . Pt reports anytime she gets up from a sitting position it still hurts Patient Reported Progress Improving PT-OP-F Manual Assessment Start: 11/17/19 18:51 Freq: Status: Active Protocol: Document 11/18/19 09:49 [facility] (Rec: 11/18/19 10:45 [facility] [id number]) Manual Assessments Soft Tissue Assessment Soft Tissue Mobility Assessment R QL tight & R glutes Joint Mobility Assessment Joint Mobility Assessment Iliac crest higher on R & equal greater trochanters PT-OP-G Mobility & Gait Start: 11/17/19 18:51 Freq: Status: Active Protocol: Document 11/18/19 09:49 [facility] (Rec: 11/18/19 10:45 [facility] [id number]) OP Gait Assessment Comments Gait Comments Inc lat lean and dec stance time on RLE, dec push off B PT-OP-J Posture/Palpation/Skin Start: 11/17/19 18:51 Freq: Status: Active Protocol: Document 11/18/19 09:49 [facility] (Rec: 11/18/19 11:01 [facility] [id number]) Posture Evaluation Comments Posture Comments fwd lean at hip and inc kyphosis PT-OP-K Range of Motion Start: 11/17/19 18:51 Freq: Status: Active Protocol: Document 11/18/19 09:49 [facility] (Rec: 11/18/19 10:45 [facility] [id number]) Hip Goniometric Range of Motion Hip Left Active Flexion w/Knee Flexed 102 Straight Leg Raise 76 Abduction 21 Internal Rotation 10 External Rotation 38 Right Active Testing Position Supine Flexion w/Knee Flexed 101 Straight Leg Raise 58 Abduction 22 Internal Rotation 4 External Rotation 23 PT-OP-L Special Tests Start: 06/17/20 18:51 Freq: Status: Active Protocol: Document 11/18/19 09:49 [facility] (Rec: 11/18/19 10:45 [facility] [id number]) Special Tests Lumbar Spine Special Tests Straight Leg Raise Test Results neg B Comments 76 deg L, 59 R Slump Test Results neg B Hip Special Tests Scour Test Test Results neg R PT-OP-M Strength Start: 11/17/19 18:51 Freq: Status: Active Protocol: Document 11/18/19 09:49 [facility] (Rec: 11/18/19 10:45 [facility] [id number]) Hip Strength Hip Manual Muscle Testing Right Flexion (L2) 3+ Fair+ Abduction 3 Fair External Rotation 3+ Fair+ Internal Rotation 3 Fair Left Flexion (L2) 3+ Fair+ Abduction 3+ Fair+ External Rotation 4 Good Internal Rotation 4 Good Knee Strength Knee Manual Muscle Testing Right Flexion (S2) 4+ Good+ Extension (L3) 4 Good Left Flexion (S2) 4+ Good+ Extension (L3) 4 Good Ankle/Foot Strength Ankle and Foot Manual Muscle Testing Right Dorsiflexion (L4) 4+ Good+ Plantarflexion (S1) 4+ Good+ Left Dorsiflexion (L4) 4+ Good+ Plantarflexion (S1) 4+ Good+ Comments PF tested seated PT-OP-Q Treatments Start: 11/17/19 18:51 Freq: Status: Active Protocol: Document 12/15/19 13:48 [facility] (Rec: 12/15/19 14:28 [facility] [id number]) Cardio Equipment Recumbent Elliptical (Biodex) Duration (Minutes) 6 Resistance 5 Seat Position 7 Therapeutic Exercises Standing Exercises side steps Side bilateral Equipment Used yellow tband Reps/Minutes 20ft x2 lunge Side bilateral Reps/Minutes 12 squat Standing Exercise Name at bar & over chair Side bilateral Reps/Minutes 20 Manual Therapy Treatment Soft Tissue Mobilization glutes Body Location R-along sacrum Mobilization Type Rolling,Sustained Pressure Intensity/Depth Moderate Body Position Sidelying PT-OP-R Modalities Start: 11/17/19 18:51 Freq: Status: Active Protocol: Document 12/15/19 13:48 [facility] (Rec: 12/15/19 14:28 [facility] [id number]) Ultrasound Therapy Treatment Right Posterior Hip Treatment Duration (minutes) 8 Patient Position Sidelying Coupling Medium Ultrasound Gel Applicator Size (cm2) 10 Frequency Setting (mHz) 1 Mode Setting Continuous Intensity Setting (w/cm2) 1 PT-OP-T Assessment and Plan Start: 11/17/19 18:51 Freq: Status: Active Protocol: Document 12/15/19 13:48 [facility] (Rec: 12/15/19 14:28 [facility] [id number]) Physical Therapy Assessment Goals activties Short Term Goal (STG) Pt will be able to ascend and descend stairs reciprocally without a rail. STG Duration 12/18/19 Vb Developer Goal (LTG) Pt will be able to return to all typical activities including housework, grocery shopping, and transition from sit to stand and amb without inc pain. LTG Duration 01/18/20 LEFS Impairment 13/80 Short Term Goal (STG) Pt will improve score on LEFS to 25/80 to show improvement in functional abilities. STG Duration 12/18/19 Vb Developer Goal (LTG) Pt will improve score on LEFS to 55/80 to show improvement in functional abilities. LTG Duration 01/18/20 strength Short Term Goal (STG) Pt will be indep with HEP. STG Duration 12/18/19 Vb Developer Goal (LTG) Pt will have >4+/5 LE strength B in order to allow improvement in her ability to doing ADLs without pain. LTG Duration 01/18/20 Assessment Summary Assessment Pt had no pain after exercises today & was thrilled to feel painfree. She is improving with form with lunges but still does require cueing. Physical Therapy Plan Frequency and Duration Frequency of Treatment 2x/Week Duration of Treatment 2 months Plan of Care Start Date 11/18/19 Plan of Care End Date 01/18/20 Next Visit Focus/Plan Next Note Type Treatment Note Next Visit Plan work on strengthening, STM & hip mobs
--- NOTE | 2019-12-20 14:30 | PT.OTN ---
Current Diagnoses Gluteal tendinitis, right hip (12/20/19) Difficulty in walking, not elsewhere classified (12/20/19) Abnormal posture (12/20/19) Weakness (12/20/19) Physical Therapy Treatment Note PT-OP-A Visit Information Start: 11/17/19 18:51 Freq: Status: Active Protocol: Document 12/20/19 13:48 LR (Rec: 12/20/19 14:30 [facility] [id number]) Out-Patient Physical Therapy Visit Information Visit Information Visit Type Treatment Note Visit Note 02/09 Visit Start Time 13:46 Visit Stop Time 14:36 Total Visit Minutes 50 Visit Number 9 Number of WOOD CABINETMAKER Visits 0 PT-OP-B Current Condition Start: 11/17/19 18:51 Freq: Status: Active Protocol: Document 11/18/19 09:49 [facility] (Rec: 11/18/19 10:45 [facility] [id number]) Current Condition History of Current Condition Onset Date early July Current Complaints R hip History of Current Condition Pt stepped backwards and hit her upper glutes into a kitchen counter corner. Pt reprots pain was excrutiating and she felt like she couldn't put weight into it at first. She iced it but it didn't do much good. Pt feels like what is injured is deep. Pt reports she has had good results with her L shoulder rehab with [facility] and feels like it would be helpful in this hip too. Pt reports pain gets so bad that she gets nauseus. She did not get checked out immediately d/ t COVID concerns. Reports it is all she can do to get through the grocery store 1x/ week. Pt has history of back pain that flares up that started 30 years ago d/t missing a step as she was coming down the stairs and ended up bouncing down on her butt. Pt reports she cannot do her chores around the house and does one thing a day and pays for it after. Pt has to use the rails to do reciprocal gait but where there is no rails she has to do step to. Prior she was able to do reciprocally without rail. She likes to stand to quilt and that does not seem to bother her except that she gets tired faster. Pt reprots she is really tired and feels like she is getting exhausted. Prior Treatments and Tests pain meds, PT for L shoulder after RCR Treatment Goals Patient/Caregiver Goals be able to walk and move to be able to travel with family, be able to tolerate long drives and transitions from sitting to standing, not to feel limited in activity PT-OP-C Subjective Start: 11/17/19 18:51 Freq: Status: Active Protocol: Document 12/20/19 13:48 LR (Rec: 12/20/19 14:30 [facility] [id number]) OP-PT Subjective Patient Comments Patient Comments Pt reports some soreness today PT-OP-F Manual Assessment Start: 11/17/19 18:51 Freq: Status: Active Protocol: Document 11/18/19 09:49 [facility] (Rec: 11/18/19 10:45 [facility] [id number]) Manual Assessments Soft Tissue Assessment Soft Tissue Mobility Assessment R QL tight & R glutes Joint Mobility Assessment Joint Mobility Assessment Iliac crest higher on R & equal greater trochanters PT-OP-G Mobility & Gait Start: 11/17/19 18:51 Freq: Status: Active Protocol: Document 11/18/19 09:49 [facility] (Rec: 11/18/19 10:45 [facility] [id number]) OP Gait Assessment Comments Gait Comments Inc lat lean and dec stance time on RLE, dec push off B PT-OP-J Posture/Palpation/Skin Start: 11/17/19 18:51 Freq: Status: Active Protocol: Document 11/18/19 09:49 [facility] (Rec: 11/18/19 11:01 [facility] [id number]) Posture Evaluation Comments Posture Comments fwd lean at hip and inc kyphosis PT-OP-K Range of Motion Start: 11/17/19 18:51 Freq: Status: Active Protocol: Document 11/18/19 09:49 [facility] (Rec: 11/18/19 10:45 [facility] [id number]) Hip Goniometric Range of Motion Hip Left Active Flexion w/Knee Flexed 102 Straight Leg Raise 76 Abduction 21 Internal Rotation 10 External Rotation 38 Right Active Testing Position Supine Flexion w/Knee Flexed 101 Straight Leg Raise 58 Abduction 22 Internal Rotation 4 External Rotation 23 PT-OP-L Special Tests Start: 11/17/19 18:51 Freq: Status: Active Protocol: Document 11/18/19 09:49 [facility] (Rec: 11/18/19 10:45 [facility] [id number]) Special Tests Lumbar Spine Special Tests Straight Leg Raise Test Results neg B Comments 76 deg L, 59 R Slump Test Results neg B Hip Special Tests Scour Test Test Results neg R PT-OP-M Strength Start: 11/17/19 18:51 Freq: Status: Active Protocol: Document 11/18/19 09:49 [facility] (Rec: 11/18/19 10:45 [facility] [id number]) Hip Strength Hip Manual Muscle Testing Right Flexion (L2) 3+ Fair+ Abduction 3 Fair External Rotation 3+ Fair+ Internal Rotation 3 Fair Left Flexion (L2) 3+ Fair+ Abduction 3+ Fair+ External Rotation 4 Good Internal Rotation 4 Good Knee Strength Knee Manual Muscle Testing Right Flexion (S2) 4+ Good+ Extension (L3) 4 Good Left Flexion (S2) 4+ Good+ Extension (L3) 4 Good Ankle/Foot Strength Ankle and Foot Manual Muscle Testing Right Dorsiflexion (L4) 4+ Good+ Plantarflexion (S1) 4+ Good+ Left Dorsiflexion (L4) 4+ Good+ Plantarflexion (S1) 4+ Good+ Comments PF tested seated PT-OP-Q Treatments Start: 11/17/19 18:51 Freq: Status: Active Protocol: Document 12/20/19 13:48 [facility] (Rec: 12/20/19 14:30 [facility] [id number]) Cardio Equipment Recumbent Stepper (Sci-Fit) Duration (Minutes) 6 Resistance 5 Seat Position 8 Therapeutic Exercises Standing Exercises side steps Side bilateral Equipment Used yellow tband Reps/Minutes 20ft x2 lunge Side bilateral Reps/Minutes 12 squat Standing Exercise Name at bar & over chair Side bilateral Reps/Minutes 20 Manual Therapy Treatment Soft Tissue Mobilization glutes Body Location R-along sacrum Mobilization Type Rolling,Sustained Pressure Intensity/Depth Moderate Body Position Sidelying Joint Mobilizations hip Joint R Direction inf & on axis IR FM PT-OP-R Modalities Start: 11/17/19 18:51 Freq: Status: Active Protocol: Document 12/20/19 13:48 [facility] (Rec: 12/20/19 14:30 [facility] [id number]) Hot Pack/Cold Pack Treatment Hot Pack Location R hip Patient Position Sidelying Treatment Duration (minutes) 10 Ultrasound Therapy Treatment Right Posterior Hip Treatment Duration (minutes) 8 Patient Position Sidelying Coupling Medium Ultrasound Gel Applicator Size (cm2) 10 Frequency Setting (mHz) 1 Mode Setting Continuous Intensity Setting (w/cm2) 1 PT-OP-T Assessment and Plan Start: 11/17/19 18:51 Freq: Status: Active Protocol: Document 12/20/19 13:48 [facility] (Rec: 12/20/19 14:30 [facility] [id number]) Physical Therapy Assessment Goals activties Short Term Goal (STG) Pt will be able to ascend and descend stairs reciprocally without a rail. STG Duration 12/18/19 Fdc Goal (LTG) Pt will be able to return to all typical activities including housework, grocery shopping, and transition from sit to stand and amb without inc pain. LTG Duration 01/18/20 LEFS Impairment 13/80 Short Term Goal (STG) Pt will improve score on LEFS to 25/80 to show improvement in functional abilities. STG Duration 12/18/19 Public Bath Attendant Goal (LTG) Pt will improve score on LEFS to 55/80 to show improvement in functional abilities. LTG Duration 01/18/20 strength Short Term Goal (STG) Pt will be indep with HEP. STG Duration 12/18/19 Fdc Goal (LTG) Pt will have >4+/5 LE strength B in order to allow improvement in her ability to doing ADLs without pain. LTG Duration 01/18/20 Assessment Summary Assessment Pt did better with exercises but still requires cuieng to not let knees go past toes. Improving tranisitons where pt is able to stand up quickly and start walking without significant limping on first steps. Physical Therapy Plan Frequency and Duration Frequency of Treatment 2x/Week Duration of Treatment 2 months Plan of Care Start Date 11/18/19 Plan of Care End Date 01/18/20 Next Visit Focus/Plan Next Note Type Progress Note Next Visit Plan assess progress in strength and functional ability
--- NOTE | 2019-12-22 14:32 | PT.OTN ---
Current Diagnoses Gluteal tendinitis, right hip (12/22/19) Difficulty in walking, not elsewhere classified (12/22/19) Abnormal posture (12/22/19) Weakness (12/22/19) Physical Therapy Treatment Note PT-OP-A Visit Information Start: 11/17/19 18:51 Freq: Status: Active Protocol: Document 12/22/19 13:49 [facility] (Rec: 12/22/19 14:32 [facility] [id number]) Out-Patient Physical Therapy Visit Information Visit Information Visit Type Progress Note Visit Note 06/11 Visit Start Time 13:45 Visit Stop Time 14:24 Total Visit Minutes 39 Visit Number 10 Number of TRANSITION ASSISTANT Visits 0 PT-OP-B Current Condition Start: 11/17/19 18:51 Freq: Status: Active Protocol: Document 11/18/19 09:49 [facility] (Rec: 11/18/19 10:45 [facility] [id number]) Current Condition History of Current Condition Onset Date early July Current Complaints R hip History of Current Condition Pt stepped backwards and hit her upper glutes into a kitchen counter corner. Pt reprots pain was excrutiating and she felt like she couldn't put weight into it at first. She iced it but it didn't do much good. Pt feels like what is injured is deep. Pt reports she has had good results with her L shoulder rehab with [facility] and feels like it would be helpful in this hip too. Pt reports pain gets so bad that she gets nauseus. She did not get checked out immediately d/ t COVID concerns. Reports it is all she can do to get through the grocery store 1x/ week. Pt has history of back pain that flares up that started 30 years ago d/t missing a step as she was coming down the stairs and ended up bouncing down on her butt. Pt reports she cannot do her chores around the house and does one thing a day and pays for it after. Pt has to use the rails to do reciprocal gait but where there is no rails she has to do step to. Prior she was able to do reciprocally without rail. She likes to stand to quilt and that does not seem to bother her except that she gets tired faster. Pt reprots she is really tired and feels like she is getting exhausted. Prior Treatments and Tests pain meds, PT for L shoulder after RCR Treatment Goals Patient/Caregiver Goals be able to walk and move to be able to travel with family, be able to tolerate long drives and transitions from sitting to standing, not to feel limited in activity PT-OP-C Subjective Start: 11/17/19 18:51 Freq: Status: Active Protocol: Document 12/22/19 13:49 [facility] (Rec: 12/22/19 14:32 [facility] [id number]) OP-PT Subjective Patient Comments Patient Comments Pt reports she thinks she woke up early at 5 am d/t overdoing in the yard yesterday. Patient Questionnaires Lower Extremity Functional Scale LEFS Score 30 PT-OP-F Manual Assessment Start: 11/17/19 18:51 Freq: Status: Active Protocol: Document 11/18/19 09:49 [facility] (Rec: 11/18/19 10:45 [facility] [id number]) Manual Assessments Soft Tissue Assessment Soft Tissue Mobility Assessment R QL tight & R glutes Joint Mobility Assessment Joint Mobility Assessment Iliac crest higher on R & equal greater trochanters PT-OP-G Mobility & Gait Start: 11/17/19 18:51 Freq: Status: Active Protocol: Document 11/18/19 09:49 [facility] (Rec: 11/18/19 10:45 [facility] [id number]) OP Gait Assessment Comments Gait Comments Inc lat lean and dec stance time on RLE, dec push off B PT-OP-J Posture/Palpation/Skin Start: 11/17/19 18:51 Freq: Status: Active Protocol: Document 11/18/19 09:49 [facility] (Rec: 11/18/19 11:01 [facility] [id number]) Posture Evaluation Comments Posture Comments fwd lean at hip and inc kyphosis PT-OP-K Range of Motion Start: 11/17/19 18:51 Freq: Status: Active Protocol: Document 11/18/19 09:49 [facility] (Rec: 11/18/19 10:45 [facility] [id number]) Hip Goniometric Range of Motion Hip Left Active Flexion w/Knee Flexed 102 Straight Leg Raise 76 Abduction 21 Internal Rotation 10 External Rotation 38 Right Active Testing Position Supine Flexion w/Knee Flexed 101 Straight Leg Raise 58 Abduction 22 Internal Rotation 4 External Rotation 23 PT-OP-L Special Tests Start: 11/17/19 18:51 Freq: Status: Active Protocol: Document 11/18/19 09:49 [facility] (Rec: 11/18/19 10:45 [facility] [id number]) Special Tests Lumbar Spine Special Tests Straight Leg Raise Test Results neg B Comments 76 deg L, 59 R Slump Test Results neg B Hip Special Tests Scour Test Test Results neg R PT-OP-M Strength Start: 11/17/19 18:51 Freq: Status: Active Protocol: Document 12/22/19 13:49 [facility] (Rec: 12/22/19 14:32 [facility] [id number]) Hip Strength Hip Manual Muscle Testing Right Flexion (L2) 4- Good- Abduction 3+ Fair+ External Rotation 4- Good- Internal Rotation 4 Good Left Flexion (L2) 3+ Fair+ Abduction 3+ Fair+ External Rotation 4 Good Internal Rotation 4+ Good+ Knee Strength Knee Manual Muscle Testing Right Flexion (S2) 4+ Good+ Extension (L3) 4+ Good+ Left Flexion (S2) 4+ Good+ Extension (L3) 4+ Good+ Ankle/Foot Strength Ankle and Foot Manual Muscle Testing Right Dorsiflexion (L4) 5 Normal Plantarflexion (S1) 5 Normal Left Dorsiflexion (L4) 5 Normal Plantarflexion (S1) 5 Normal Comments PF tested seated PT-OP-Q Treatments Start: 11/17/19 18:51 Freq: Status: Active Protocol: Document 12/22/19 13:49 [facility] (Rec: 12/22/19 14:32 [facility] [id number]) Cardio Equipment Recumbent Elliptical (Biodex) Duration (Minutes) 6 Resistance 6 Seat Position 7 Therapeutic Exercises Standing Exercises side steps Side bilateral Equipment Used L1 Reps/Minutes 20ft x2 lunge Side bilateral Reps/Minutes 10 Manual Therapy Treatment Soft Tissue Mobilization glutes Body Location R-along sacrum Mobilization Type Rolling,Sustained Pressure Intensity/Depth Moderate Body Position Sidelying PT-OP-R Modalities Start: 11/17/19 18:51 Freq: Status: Active Protocol: Document 12/22/19 13:49 [facility] (Rec: 12/22/19 14:32 [facility] [id number]) Ultrasound Therapy Treatment Right Posterior Hip Treatment Duration (minutes) 8 Patient Position Sidelying Coupling Medium Ultrasound Gel Applicator Size (cm2) 10 Frequency Setting (mHz) 1 Mode Setting Continuous Intensity Setting (w/cm2) 1 PT-OP-T Assessment and Plan Start: 11/17/19 18:51 Freq: Status: Active Protocol: Document 12/22/19 13:49 [facility] (Rec: 12/22/19 14:32 [facility] [id number]) Physical Therapy Assessment Goals activties Short Term Goal (STG) Pt will be able to ascend and descend stairs reciprocally without a rail. 12/21-doing better STG Duration 12/18/19 [facility] Goal (LTG) Pt will be able to return to all typical activities including housework, grocery shopping, and transition from sit to stand and amb without inc pain. 12/21-can grocery shop without pain, still pain w/sit to stand but easier transition LTG Duration 01/18/20 LEFS Impairment 13/80 Short Term Goal (STG) Pt will improve score on LEFS to 25/80 to show improvement in functional abilities. STG Duration achieved Chain Saw Mechanic Goal (LTG) Pt will improve score on LEFS to 55/80 to show improvement in functional abilities. LTG Duration 01/18/20 strength Short Term Goal (STG) Pt will be indep with HEP. STG Duration achieved [facility] Goal (LTG) Pt will have >4+/5 LE strength B in order to allow improvement in her ability to doing ADLs without pain. 12/21-improved LTG Duration 01/18/20 Assessment Summary Assessment Pt has made significant improvement in strength, functional ability and pain level. She is no longer having the very high level of pain but pain is still limiting her functional ability. She is inc HEP to more strengtheniing as tolerated. Physical Therapy Plan Frequency and Duration Frequency of Treatment 2x/Week Duration of Treatment 2 months Plan of Care Start Date 11/18/19 Plan of Care End Date 01/18/20 Next Visit Focus/Plan Next Note Type Treatment Note Next Visit Plan cont to work on inc strength & gait pattern
--- NOTE | 2019-12-22 16:51 | PT.OPPN ---
Current Diagnoses Gluteal tendinitis, right hip (12/27/19) Difficulty in walking, not elsewhere classified (12/27/19) Abnormal posture (12/27/19) Weakness (12/27/19) Physical Therapy Progress Note PT-OP-A Visit Information Start: 11/17/19 18:51 Freq: Status: Active Protocol: Document 12/22/19 13:49 [facility] (Rec: 12/22/19 14:32 [facility] [id number]) Out-Patient Physical Therapy Visit Information Visit Information Visit Type Progress Note Visit Note 06/11 Visit Start Time 13:45 Visit Stop Time 14:24 Total Visit Minutes 39 Visit Number 10 Number of TOWER SUPERVISOR Visits 0 PT-OP-B Current Condition Start: 11/17/19 18:51 Freq: Status: Active Protocol: Document 11/18/19 09:49 [facility] (Rec: 11/18/19 10:45 [facility] [id number]) Current Condition History of Current Condition Onset Date early July Current Complaints R hip History of Current Condition Pt stepped backwards and hit her upper glutes into a kitchen counter corner. Pt reprots pain was excrutiating and she felt like she couldn't put weight into it at first. She iced it but it didn't do much good. Pt feels like what is injured is deep. Pt reports she has had good results with her L shoulder rehab with [facility] and feels like it would be helpful in this hip too. Pt reports pain gets so bad that she gets nauseus. She did not get checked out immediately d/ t COVID concerns. Reports it is all she can do to get through the grocery store 1x/ week. Pt has history of back pain that flares up that started 30 years ago d/t missing a step as she was coming down the stairs and ended up bouncing down on her butt. Pt reports she cannot do her chores around the house and does one thing a day and pays for it after. Pt has to use the rails to do reciprocal gait but where there is no rails she has to do step to. Prior she was able to do reciprocally without rail. She likes to stand to quilt and that does not seem to bother her except that she gets tired faster. Pt reprots she is really tired and feels like she is getting exhausted. Prior Treatments and Tests pain meds, PT for L shoulder after RCR Treatment Goals Patient/Caregiver Goals be able to walk and move to be able to travel with family, be able to tolerate long drives and transitions from sitting to standing, not to feel limited in activity PT-OP-C Subjective Start: 11/17/19 18:51 Freq: Status: Active Protocol: Document 12/22/19 13:49 [facility] (Rec: 12/22/19 14:32 [facility] [id number]) OP-PT Subjective Patient Comments Patient Comments Pt reports she thinks she woke up early at 5 am d/t overdoing in the yard yesterday. Patient Questionnaires Lower Extremity Functional Scale LEFS Score 30 PT-OP-F Manual Assessment Start: 11/17/19 18:51 Freq: Status: Active Protocol: Document 11/18/19 09:49 [facility] (Rec: 11/18/19 10:45 [facility] [id number]) Manual Assessments Soft Tissue Assessment Soft Tissue Mobility Assessment R QL tight & R glutes Joint Mobility Assessment Joint Mobility Assessment Iliac crest higher on R & equal greater trochanters PT-OP-G Mobility & Gait Start: 11/17/19 18:51 Freq: Status: Active Protocol: Document 11/18/19 09:49 [facility] (Rec: 11/18/19 10:45 [facility] [id number]) OP Gait Assessment Comments Gait Comments Inc lat lean and dec stance time on RLE, dec push off B PT-OP-J Posture/Palpation/Skin Start: 11/17/19 18:51 Freq: Status: Active Protocol: Document 11/18/19 09:49 [facility] (Rec: 11/18/19 11:01 [facility] [id number]) Posture Evaluation Comments Posture Comments fwd lean at hip and inc kyphosis PT-OP-K Range of Motion Start: 11/17/19 18:51 Freq: Status: Active Protocol: Document 11/18/19 09:49 [facility] (Rec: 11/18/19 10:45 [facility] [id number]) Hip Goniometric Range of Motion Hip Measured in Degrees Left Active Flexion w/Knee Flexed 102 Straight Leg Raise 76 Abduction 21 Internal Rotation 10 External Rotation 38 Right Active Testing Position Supine Flexion w/Knee Flexed 101 Straight Leg Raise 58 Abduction 22 Internal Rotation 4 External Rotation 23 PT-OP-L Special Tests Start: 11/17/19 18:51 Freq: Status: Active Protocol: Document 11/18/19 09:49 [facility] (Rec: 11/18/19 10:45 [facility] [id number]) Special Tests Lumbar Spine Special Tests Straight Leg Raise Test Results neg B Comments 76 deg L, 59 R Slump Test Results neg B Hip Special Tests Scour Test Test Results neg R PT-OP-M Strength Start: 11/17/19 18:51 Freq: Status: Active Protocol: Document 12/22/19 13:49 [facility] (Rec: 12/22/19 14:32 [facility] [id number]) Hip Strength Hip Manual Muscle Testing Right Flexion (L2) 4- Good- Abduction 3+ Fair+ External Rotation 4- Good- Internal Rotation 4 Good Left Flexion (L2) 3+ Fair+ Abduction 3+ Fair+ External Rotation 4 Good Internal Rotation 4+ Good+ Knee Strength Knee Manual Muscle Testing Right Flexion (S2) 4+ Good+ Extension (L3) 4+ Good+ Left Flexion (S2) 4+ Good+ Extension (L3) 4+ Good+ Ankle/Foot Strength Ankle and Foot Manual Muscle Testing Right Dorsiflexion (L4) 5 Normal Plantarflexion (S1) 5 Normal Left Dorsiflexion (L4) 5 Normal Plantarflexion (S1) 5 Normal Comments PF tested seated PT-OP-T Assessment and Plan Start: 11/17/19 18:51 Freq: Status: Active Protocol: Document 12/22/19 13:49 [facility] (Rec: 12/22/19 14:32 [facility] [id number]) Physical Therapy Assessment Goals activties Short Term Goal (STG) Pt will be able to ascend and descend stairs reciprocally without a rail. 12/21-doing better STG Duration 12/18/19 Ocean Biologist Goal (LTG) Pt will be able to return to all typical activities including housework, grocery shopping, and transition from sit to stand and amb without inc pain. 12/21-can grocery shop without pain, still pain w/sit to stand but easier transition LTG Duration 01/18/20 LEFS Impairment 13/80 Short Term Goal (STG) Pt will improve score on LEFS to 25/80 to show improvement in functional abilities. STG Duration achieved Senior Care Goal (LTG) Pt will improve score on LEFS to 55/80 to show improvement in functional abilities. LTG Duration 01/18/20 strength Short Term Goal (STG) Pt will be indep with HEP. STG Duration achieved Ocean Biologist Goal (LTG) Pt will have >4+/5 LE strength B in order to allow improvement in her ability to doing ADLs without pain. 12/21-improved LTG Duration 01/18/20 Assessment Summary Assessment Pt has made significant improvement in strength, functional ability and pain level. She is no longer having the very high level of pain but pain is still limiting her functional ability. She is inc HEP to more strengtheniing as tolerated. Physical Therapy Plan Frequency and Duration Frequency of Treatment 2x/Week Duration of Treatment 2 months Plan of Care Start Date 11/18/19 Plan of Care End Date 01/18/20 Next Visit Focus/Plan Next Note Type Treatment Note Next Visit Plan cont to work on inc strength & gait pattern
--- NOTE | 2019-12-27 14:31 | PT.OTN ---
Current Diagnoses Gluteal tendinitis, right hip (12/27/19) Difficulty in walking, not elsewhere classified (12/27/19) Abnormal posture (12/27/19) Weakness (12/27/19) Physical Therapy Treatment Note PT-OP-A Visit Information Start: 11/17/19 18:51 Freq: Status: Active Protocol: Document 12/27/19 13:51 [facility] (Rec: 12/27/19 14:30 [facility] [id number]) Out-Patient Physical Therapy Visit Information Visit Information Visit Type Treatment Note Visit Note 07/12 Visit Start Time 13:46 Visit Stop Time 14:26 Total Visit Minutes 40 Visit Number 11 Number of PROFESSIONAL SECURITY OFFICER Visits 0 PT-OP-B Current Condition Start: 11/17/19 18:51 Freq: Status: Active Protocol: Document 11/18/19 09:49 [facility] (Rec: 11/18/19 10:45 [facility] [id number]) Current Condition History of Current Condition Onset Date early July Current Complaints R hip History of Current Condition Pt stepped backwards and hit her upper glutes into a kitchen counter corner. Pt reprots pain was excrutiating and she felt like she couldn't put weight into it at first. She iced it but it didn't do much good. Pt feels like what is injured is deep. Pt reports she has had good results with her L shoulder rehab with [facility] and feels like it would be helpful in this hip too. Pt reports pain gets so bad that she gets nauseus. She did not get checked out immediately d/ t COVID concerns. Reports it is all she can do to get through the grocery store 1x/ week. Pt has history of back pain that flares up that started 30 years ago d/t missing a step as she was coming down the stairs and ended up bouncing down on her butt. Pt reports she cannot do her chores around the house and does one thing a day and pays for it after. Pt has to use the rails to do reciprocal gait but where there is no rails she has to do step to. Prior she was able to do reciprocally without rail. She likes to stand to quilt and that does not seem to bother her except that she gets tired faster. Pt reprots she is really tired and feels like she is getting exhausted. Prior Treatments and Tests pain meds, PT for L shoulder after RCR Treatment Goals Patient/Caregiver Goals be able to walk and move to be able to travel with family, be able to tolerate long drives and transitions from sitting to standing, not to feel limited in activity PT-OP-C Subjective Start: 11/17/19 18:51 Freq: Status: Active Protocol: Document 12/27/19 13:51 [facility] (Rec: 12/27/19 14:30 [facility] [id number]) OP-PT Subjective Patient Comments Patient Comments Pt feels like she has turned a corner and feels like the pain has not gotten in the way of her being creative anymore . Patient Reported Progress Improving PT-OP-F Manual Assessment Start: 11/17/19 18:51 Freq: Status: Active Protocol: Document 11/18/19 09:49 [facility] (Rec: 11/18/19 10:45 [facility] [id number]) Manual Assessments Soft Tissue Assessment Soft Tissue Mobility Assessment R QL tight & R glutes Joint Mobility Assessment Joint Mobility Assessment Iliac crest higher on R & equal greater trochanters PT-OP-G Mobility & Gait Start: 11/17/19 18:51 Freq: Status: Active Protocol: Document 11/18/19 09:49 [facility] (Rec: 11/18/19 10:45 [facility] [id number]) OP Gait Assessment Comments Gait Comments Inc lat lean and dec stance time on RLE, dec push off B PT-OP-J Posture/Palpation/Skin Start: 11/17/19 18:51 Freq: Status: Active Protocol: Document 11/18/19 09:49 [facility] (Rec: 11/18/19 11:01 [facility] [id number]) Posture Evaluation Comments Posture Comments fwd lean at hip and inc kyphosis PT-OP-K Range of Motion Start: 11/17/19 18:51 Freq: Status: Active Protocol: Document 11/18/19 09:49 [facility] (Rec: 11/18/19 10:45 [facility] [id number]) Hip Goniometric Range of Motion Hip Left Active Flexion w/Knee Flexed 102 Straight Leg Raise 76 Abduction 21 Internal Rotation 10 External Rotation 38 Right Active Testing Position Supine Flexion w/Knee Flexed 101 Straight Leg Raise 58 Abduction 22 Internal Rotation 4 External Rotation 23 PT-OP-L Special Tests Start: 11/17/19 18:51 Freq: Status: Active Protocol: Document 11/18/19 09:49 [facility] (Rec: 11/18/19 10:45 [facility] [id number]) Special Tests Lumbar Spine Special Tests Straight Leg Raise Test Results neg B Comments 76 deg L, 59 R Slump Test Results neg B Hip Special Tests Scour Test Test Results neg R PT-OP-M Strength Start: 11/17/19 18:51 Freq: Status: Active Protocol: Document 12/22/19 13:49 [facility] (Rec: 12/22/19 14:32 [facility] [id number]) Hip Strength Hip Manual Muscle Testing Right Flexion (L2) 4- Good- Abduction 3+ Fair+ External Rotation 4- Good- Internal Rotation 4 Good Left Flexion (L2) 3+ Fair+ Abduction 3+ Fair+ External Rotation 4 Good Internal Rotation 4+ Good+ Knee Strength Knee Manual Muscle Testing Right Flexion (S2) 4+ Good+ Extension (L3) 4+ Good+ Left Flexion (S2) 4+ Good+ Extension (L3) 4+ Good+ Ankle/Foot Strength Ankle and Foot Manual Muscle Testing Right Dorsiflexion (L4) 5 Normal Plantarflexion (S1) 5 Normal Left Dorsiflexion (L4) 5 Normal Plantarflexion (S1) 5 Normal Comments PF tested seated PT-OP-Q Treatments Start: 11/17/19 18:51 Freq: Status: Active Protocol: Document 12/27/19 13:51 [facility] (Rec: 12/27/19 14:30 [facility] [id number]) Cardio Equipment Recumbent Stepper (Sci-Fit) Duration (Minutes) 6 Resistance 5 Seat Position 8 Therapeutic Exercises Standing Exercises stairs Standing Exercise Name up/down reciprocally with rail PRN Reps/Minutes 2x SLS Side bilateral Reps/Minutes 30 sec x2 lunge Side bilateral Reps/Minutes 10 Comments walking squat Standing Exercise Name at bar & over chair Side bilateral Reps/Minutes 20 Manual Therapy Treatment Soft Tissue Mobilization ITB Body Location R Mobilization Type Rolling Intensity/Depth Moderate Body Position Sidelying glutes Body Location R-along sacrum Mobilization Type Rolling,Sustained Pressure Intensity/Depth Moderate Body Position Sidelying PT-OP-R Modalities Start: 11/17/19 18:51 Freq: Status: Active Protocol: Document 12/27/19 13:51 [facility] (Rec: 12/27/19 14:30 [facility] [id number]) Ultrasound Therapy Treatment Right Posterior Hip Treatment Duration (minutes) 8 Patient Position Sidelying Coupling Medium Ultrasound Gel Applicator Size (cm2) 10 Frequency Setting (mHz) 1 Mode Setting Continuous Intensity Setting (w/cm2) 1 PT-OP-T Assessment and Plan Start: 11/17/19 18:51 Freq: Status: Active Protocol: Document 12/27/19 13:51 [facility] (Rec: 12/27/19 14:30 [facility] [id number]) Physical Therapy Assessment Goals activties Short Term Goal (STG) Pt will be able to ascend and descend stairs reciprocally without a rail. 12/21-doing better STG Duration 12/18/19 Skilled Nursing Goal (LTG) Pt will be able to return to all typical activities including housework, grocery shopping, and transition from sit to stand and amb without inc pain. 12/21-can grocery shop without pain, still pain w/sit to stand but easier transition LTG Duration 01/18/20 LEFS Impairment 13/80 Short Term Goal (STG) Pt will improve score on LEFS to 25/80 to show improvement in functional abilities. STG Duration achieved Outbound Telemarketer Goal (LTG) Pt will improve score on LEFS to 55/80 to show improvement in functional abilities. LTG Duration 01/18/20 strength Short Term Goal (STG) Pt will be indep with HEP. STG Duration achieved Outbound Telemarketer Goal (LTG) Pt will have >4+/5 LE strength B in order to allow improvement in her ability to doing ADLs without pain. 12/21-improved LTG Duration 01/18/20 Assessment Summary Assessment Pt did well with exercises but still required cueing to keep knees from going past toes with squats and lunges. Difficulty with SLS for maintaining upright positioning w/out lat shift of hip. Physical Therapy Plan Frequency and Duration Frequency of Treatment 2x/Week Duration of Treatment 2 months Plan of Care Start Date 11/18/19 Plan of Care End Date 01/18/20 Next Visit Focus/Plan Next Note Type Treatment Note Next Visit Plan cont to work on inc strength & gait pattern
--- NOTE | 2019-12-29 14:27 | PT.OTN ---
Current Diagnoses Gluteal tendinitis, right hip (12/29/19) Difficulty in walking, not elsewhere classified (12/29/19) Abnormal posture (12/29/19) Weakness (12/29/19) Physical Therapy Treatment Note PT-OP-A Visit Information Start: 11/17/19 18:51 Freq: Status: Active Protocol: Document 12/29/19 13:53 [facility] (Rec: 12/29/19 14:27 [facility] [id number]) Out-Patient Physical Therapy Visit Information Visit Information Visit Type Treatment Note Visit Note 08/09 Visit Start Time 13:47 Visit Stop Time 14:26 Total Visit Minutes 39 Visit Number 12 Number of ELECTRONICS TECHNOLOGY INSTRUCTOR Visits 0 PT-OP-B Current Condition Start: 11/17/19 18:51 Freq: Status: Active Protocol: Document 11/18/19 09:49 [facility] (Rec: 11/18/19 10:45 [facility] [id number]) Current Condition History of Current Condition Onset Date early July Current Complaints R hip History of Current Condition Pt stepped backwards and hit her upper glutes into a kitchen counter corner. Pt reprots pain was excrutiating and she felt like she couldn't put weight into it at first. She iced it but it didn't do much good. Pt feels like what is injured is deep. Pt reports she has had good results with her L shoulder rehab with [facility] and feels like it would be helpful in this hip too. Pt reports pain gets so bad that she gets nauseus. She did not get checked out immediately d/ t COVID concerns. Reports it is all she can do to get through the grocery store 1x/ week. Pt has history of back pain that flares up that started 30 years ago d/t missing a step as she was coming down the stairs and ended up bouncing down on her butt. Pt reports she cannot do her chores around the house and does one thing a day and pays for it after. Pt has to use the rails to do reciprocal gait but where there is no rails she has to do step to. Prior she was able to do reciprocally without rail. She likes to stand to quilt and that does not seem to bother her except that she gets tired faster. Pt reprots she is really tired and feels like she is getting exhausted. Prior Treatments and Tests pain meds, PT for L shoulder after RCR Treatment Goals Patient/Caregiver Goals be able to walk and move to be able to travel with family, be able to tolerate long drives and transitions from sitting to standing, not to feel limited in activity PT-OP-C Subjective Start: 11/17/19 18:51 Freq: Status: Active Protocol: Document 12/29/19 13:53 [facility] (Rec: 12/29/19 14:27 [facility] [id number]) OP-PT Subjective Patient Comments Patient Comments Pt reports she is sore today but she did a lot of stuff around [place] yesterday. Its not a deep ache anymore though. PT-OP-F Manual Assessment Start: 11/17/19 18:51 Freq: Status: Active Protocol: Document 11/18/19 09:49 [facility] (Rec: 11/18/19 10:45 [facility] [id number]) Manual Assessments Soft Tissue Assessment Soft Tissue Mobility Assessment R QL tight & R glutes Joint Mobility Assessment Joint Mobility Assessment Iliac crest higher on R & equal greater trochanters PT-OP-G Mobility & Gait Start: 11/17/19 18:51 Freq: Status: Active Protocol: Document 11/18/19 09:49 [facility] (Rec: 11/18/19 10:45 [facility] [id number]) OP Gait Assessment Comments Gait Comments Inc lat lean and dec stance time on RLE, dec push off B PT-OP-J Posture/Palpation/Skin Start: 11/17/19 18:51 Freq: Status: Active Protocol: Document 11/18/19 09:49 [facility] (Rec: 11/18/19 11:01 [facility] [id number]) Posture Evaluation Comments Posture Comments fwd lean at hip and inc kyphosis PT-OP-K Range of Motion Start: 11/17/19 18:51 Freq: Status: Active Protocol: Document 11/18/19 09:49 [facility] (Rec: 11/18/19 10:45 [facility] [id number]) Hip Goniometric Range of Motion Hip Left Active Flexion w/Knee Flexed 102 Straight Leg Raise 76 Abduction 21 Internal Rotation 10 External Rotation 38 Right Active Testing Position Supine Flexion w/Knee Flexed 101 Straight Leg Raise 58 Abduction 22 Internal Rotation 4 External Rotation 23 PT-OP-L Special Tests Start: 11/17/19 18:51 Freq: Status: Active Protocol: Document 11/18/19 09:49 [facility] (Rec: 11/18/19 10:45 [facility] [id number]) Special Tests Lumbar Spine Special Tests Straight Leg Raise Test Results neg B Comments 76 deg L, 59 R Slump Test Results neg B Hip Special Tests Scour Test Test Results neg R PT-OP-M Strength Start: 11/17/19 18:51 Freq: Status: Active Protocol: Document 12/22/19 13:49 [facility] (Rec: 12/22/19 14:32 [facility] [id number]) Hip Strength Hip Manual Muscle Testing Right Flexion (L2) 4- Good- Abduction 3+ Fair+ External Rotation 4- Good- Internal Rotation 4 Good Left Flexion (L2) 3+ Fair+ Abduction 3+ Fair+ External Rotation 4 Good Internal Rotation 4+ Good+ Knee Strength Knee Manual Muscle Testing Right Flexion (S2) 4+ Good+ Extension (L3) 4+ Good+ Left Flexion (S2) 4+ Good+ Extension (L3) 4+ Good+ Ankle/Foot Strength Ankle and Foot Manual Muscle Testing Right Dorsiflexion (L4) 5 Normal Plantarflexion (S1) 5 Normal Left Dorsiflexion (L4) 5 Normal Plantarflexion (S1) 5 Normal Comments PF tested seated PT-OP-Q Treatments Start: 11/17/19 18:51 Freq: Status: Active Protocol: Document 12/29/19 13:53 [facility] (Rec: 12/29/19 14:27 [facility] [id number]) Cardio Equipment Recumbent Elliptical (Biodex) Duration (Minutes) 6 Resistance 6 Seat Position 7 Therapeutic Exercises Supine Exercises TA Supine Exercise Name alt march Side bilateral Reps/Minutes 12x2 flex Side bilateral Reps/Minutes 15sec x2 Standing Exercises lunge Side bilateral Reps/Minutes 10 Comments walking squat Standing Exercise Name at bar & over chair Side bilateral Reps/Minutes 20 Manual Therapy Treatment Soft Tissue Mobilization ITB Body Location R Mobilization Type Rolling Intensity/Depth Moderate Body Position Sidelying PT-OP-R Modalities Start: 11/17/19 18:51 Freq: Status: Active Protocol: Document 12/29/19 13:53 [facility] (Rec: 12/29/19 14:27 [facility] [id number]) Ultrasound Therapy Treatment Right Posterior Hip Treatment Duration (minutes) 8 Patient Position Sidelying Coupling Medium Ultrasound Gel Applicator Size (cm2) 10 Frequency Setting (mHz) 1 Mode Setting Continuous Intensity Setting (w/cm2) 1 PT-OP-T Assessment and Plan Start: 11/17/19 18:51 Freq: Status: Active Protocol: Document 12/29/19 13:53 [facility] (Rec: 12/29/19 14:27 [facility] [id number]) Physical Therapy Assessment Goals activties Short Term Goal (STG) Pt will be able to ascend and descend stairs reciprocally without a rail. 12/21-doing better STG Duration 12/18/19 Fork Lift Truck Operator Goal (LTG) Pt will be able to return to all typical activities including housework, grocery shopping, and transition from sit to stand and amb without inc pain. 12/21-can grocery shop without pain, still pain w/sit to stand but easier transition LTG Duration 01/18/20 LEFS Impairment 13/80 Short Term Goal (STG) Pt will improve score on LEFS to 25/80 to show improvement in functional abilities. STG Duration achieved Fpc Goal (LTG) Pt will improve score on LEFS to 55/80 to show improvement in functional abilities. LTG Duration 01/18/20 strength Short Term Goal (STG) Pt will be indep with HEP. STG Duration achieved Fork Lift Truck Operator Goal (LTG) Pt will have >4+/5 LE strength B in order to allow improvement in her ability to doing ADLs without pain. 12/21-improved LTG Duration 01/18/20 Assessment Summary Assessment Pt was cahllenged by core exercises today but able to perform without pain. Improved squat and lunge performance with ceuing. Physical Therapy Plan Frequency and Duration Frequency of Treatment 2x/Week Duration of Treatment 2 months Plan of Care Start Date 11/18/19 Plan of Care End Date 01/18/20 Next Visit Focus/Plan Next Note Type Treatment Note Next Visit Plan cont to work on inc strength & gait pattern
--- NOTE | 2020-01-03 15:24 | PT.OTN ---
Current Diagnoses Gluteal tendinitis, right hip (01/03/20) Difficulty in walking, not elsewhere classified (01/03/20) Abnormal posture (01/03/20) Weakness (01/03/20) Physical Therapy Treatment Note PT-OP-A Visit Information Start: 11/17/19 18:51 Freq: Status: Active Protocol: Document 01/03/20 14:30 [facility] (Rec: 01/03/20 15:34 [facility] [id number]) Out-Patient Physical Therapy Visit Information Visit Information Visit Type Treatment Note Visit Note 09/09 Student OPTICAL GOODS DRILL OPERATOR Melissa attended and provided education during tx. Visit Start Time 14:30 Visit Stop Time 15:24 Total Visit Minutes 55 Visit Number 13 Number of OPTICAL GOODS DRILL OPERATOR Visits 1 PT-OP-B Current Condition Start: 11/17/19 18:51 Freq: Status: Active Protocol: Document 11/18/19 09:49 [facility] (Rec: 11/18/19 10:45 [facility] [id number]) Current Condition History of Current Condition Onset Date early July Current Complaints R hip History of Current Condition Pt stepped backwards and hit her upper glutes into a kitchen counter corner. Pt reprots pain was excrutiating and she felt like she couldn't put weight into it at first. She iced it but it didn't do much good. Pt feels like what is injured is deep. Pt reports she has had good results with her L shoulder rehab with [facility] and feels like it would be helpful in this hip too. Pt reports pain gets so bad that she gets nauseus. She did not get checked out immediately d/ t COVID concerns. Reports it is all she can do to get through the grocery store 1x/ week. Pt has history of back pain that flares up that started 30 years ago d/t missing a step as she was coming down the stairs and ended up bouncing down on her butt. Pt reports she cannot do her chores around the house and does one thing a day and pays for it after. Pt has to use the rails to do reciprocal gait but where there is no rails she has to do step to. Prior she was able to do reciprocally without rail. She likes to stand to quilt and that does not seem to bother her except that she gets tired faster. Pt reprots she is really tired and feels like she is getting exhausted. Prior Treatments and Tests pain meds, PT for L shoulder after RCR Treatment Goals Patient/Caregiver Goals be able to walk and move to be able to travel with family, be able to tolerate long drives and transitions from sitting to standing, not to feel limited in activity PT-OP-C Subjective Start: 11/17/19 18:51 Freq: Status: Active Protocol: Document 01/03/20 14:30 [facility] (Rec: 01/03/20 15:34 [facility] [id number]) OP-PT Subjective Patient Comments Patient Comments Pt stated Pain B knees 3-4 lately better than 810 in past, heat/ unweighted helps her feel better, torqued her R medial knee but unsure how, doing ok but want to it to feel better, long history of knee pain, will probably be better by friday. Patient Reported Progress Improving PT-OP-F Manual Assessment Start: 11/17/19 18:51 Freq: Status: Active Protocol: Document 11/18/19 09:49 [facility] (Rec: 11/18/19 10:45 [facility] [id number]) Manual Assessments Soft Tissue Assessment Soft Tissue Mobility Assessment R QL tight & R glutes Joint Mobility Assessment Joint Mobility Assessment Iliac crest higher on R & equal greater trochanters PT-OP-G Mobility & Gait Start: 11/17/19 18:51 Freq: Status: Active Protocol: Document 11/18/19 09:49 [facility] (Rec: 11/18/19 10:45 [facility] [id number]) OP Gait Assessment Comments Gait Comments Inc lat lean and dec stance time on RLE, dec push off B PT-OP-J Posture/Palpation/Skin Start: 11/17/19 18:51 Freq: Status: Active Protocol: Document 11/18/19 09:49 [facility] (Rec: 11/18/19 11:01 [facility] [id number]) Posture Evaluation Comments Posture Comments fwd lean at hip and inc kyphosis PT-OP-K Range of Motion Start: 11/17/19 18:51 Freq: Status: Active Protocol: Document 11/18/19 09:49 [facility] (Rec: 11/18/19 10:45 [facility] [id number]) Hip Goniometric Range of Motion Hip Left Active Flexion w/Knee Flexed 102 Straight Leg Raise 76 Abduction 21 Internal Rotation 10 External Rotation 38 Right Active Testing Position Supine Flexion w/Knee Flexed 101 Straight Leg Raise 58 Abduction 22 Internal Rotation 4 External Rotation 23 PT-OP-L Special Tests Start: 11/17/19 18:51 Freq: Status: Active Protocol: Document 11/18/19 09:49 [facility] (Rec: 11/18/19 10:45 [facility] [id number]) Special Tests Lumbar Spine Special Tests Straight Leg Raise Test Results neg B Comments 76 deg L, 59 R Slump Test Results neg B Hip Special Tests Scour Test Test Results neg R PT-OP-M Strength Start: 11/17/19 18:51 Freq: Status: Active Protocol: Document 12/22/19 13:49 [facility] (Rec: 12/22/19 14:32 [facility] [id number]) Hip Strength Hip Manual Muscle Testing Right Flexion (L2) 4- Good- Abduction 3+ Fair+ External Rotation 4- Good- Internal Rotation 4 Good Left Flexion (L2) 3+ Fair+ Abduction 3+ Fair+ External Rotation 4 Good Internal Rotation 4+ Good+ Knee Strength Knee Manual Muscle Testing Right Flexion (S2) 4+ Good+ Extension (L3) 4+ Good+ Left Flexion (S2) 4+ Good+ Extension (L3) 4+ Good+ Ankle/Foot Strength Ankle and Foot Manual Muscle Testing Right Dorsiflexion (L4) 5 Normal Plantarflexion (S1) 5 Normal Left Dorsiflexion (L4) 5 Normal Plantarflexion (S1) 5 Normal Comments PF tested seated PT-OP-Q Treatments Start: 11/17/19 18:51 Freq: Status: Active Protocol: Document 01/03/20 14:30 [facility] (Rec: 01/03/20 15:34 [facility] [id number]) Cardio Equipment Recumbent Elliptical (Biodex) Duration (Minutes) 6 Resistance 6 Seat Position 7 Therapeutic Exercises Supine Exercises bicycle Supine Exercise Name alternating, both legs suspended Side bilateral Reps/Minutes 4 reps Comments cues to engage core figure 4 stretch Side left Reps/Minutes 30sec bridge Side bilateral Reps/Minutes 10x Comments rest break needed to streth L piriformis HS Side bilateral Reps/Minutes R 10sec x 5; L 30sec x 2 Comments cues for moving into stretch slowly piriformis Side bilateral Reps/Minutes 30sec x 2 Sidelying Exercises reverse clamshells Sidelying Exercise Name AROM Side bilateral Reps/Minutes 10x Comments no cues needed clamshells Sidelying Exercise Name AROM Side bilateral Reps/Minutes 10x Comments cues needed to engage core, relax foot/ankle to avoid cramping Standing Exercises side steps Side bilateral Resistance YTB Reps/Minutes 10ft x 4 Comments cues for stepping rather than scooting feet Other Exercises Self STM - ball on wall Other Exercise Name glute, QL Side right Reps/Minutes 2 min Comments cues for MFR to glute/QL with intensity that does not cause pain PT-OP-R Modalities Start: 11/17/19 18:51 Freq: Status: Active Protocol: Document 12/29/19 13:53 [facility] (Rec: 12/29/19 14:27 [facility] [id number]) Ultrasound Therapy Treatment Right Posterior Hip Treatment Duration (minutes) 8 Patient Position Sidelying Coupling Medium Ultrasound Gel Applicator Size (cm2) 10 Frequency Setting (mHz) 1 Mode Setting Continuous Intensity Setting (w/cm2) 1 PT-OP-T Assessment and Plan Start: 11/17/19 18:51 Freq: Status: Active Protocol: Document 01/03/20 14:30 [facility] (Rec: 01/03/20 15:34 [facility] [id number]) Physical Therapy Assessment Goals activties Short Term Goal (STG) Pt will be able to ascend and descend stairs reciprocally without a rail. 12/21-doing better STG Duration 12/18/19 Top Precipitator Operator Helper Goal (LTG) Pt will be able to return to all typical activities including housework, grocery shopping, and transition from sit to stand and amb without inc pain. 12/21-can grocery shop without pain, still pain w/sit to stand but easier transition LTG Duration 01/18/20 LEFS Impairment 13/80 Short Term Goal (STG) Pt will improve score on LEFS to 25/80 to show improvement in functional abilities. STG Duration achieved Usp Goal (LTG) Pt will improve score on LEFS to 55/80 to show improvement in functional abilities. LTG Duration 01/18/20 strength Short Term Goal (STG) Pt will be indep with HEP. STG Duration achieved Usp Goal (LTG) Pt will have >4+/5 LE strength B in order to allow improvement in her ability to doing ADLs without pain. 12/21-improved LTG Duration 01/18/20 Assessment Summary Assessment Pt pain improving in R gluteal region from 8/10 to 4/10 today. Reviewed HEP, with education for improved form and cues for core activation. Continue PT to strenghten TA and R hip abductors to increase core and hip stabilization for improved functional mobility. Fatigue to B glutes after lateral side -stepping with YTB. Pt experienced relief with use of massage ball for STM and MFR to R glute and QL. Improved focus on task today with tx in private room, removing distractions from therapy gym. Pt reports no increase in pain at the end of tx. Pt reported at end of tx is now able to ascend 13 stairs at home without thinking about but more difficult when more fatigued at end of day. Physical Therapy Plan Frequency and Duration Frequency of Treatment 2x/Week Duration of Treatment 2 months Plan of Care Start Date 11/18/19 Plan of Care End Date 01/18/20 Therapeutic Interventions Therapeutic Interventions Aquatic Therapy,Balance Training,Gait Training,Home Exercise Program,Joint Mobilizations,Manual Therapy, Neuromuscular Re-education, Patient/Caregiver Education, Self-Care/Home Management,Soft Tissue Mobilization,Taping, Therapeutic Activities, Therapeutic Exercises Modalities Cold Pack/Ice Massage,Electric Stimulation,Hot Packs, Infrared Therapy,Iontophoresis ,Ultrasound Next Visit Focus/Plan Next Note Type Treatment Note Next Visit Plan Assess response to last tx. Progress TA and R hip abd strengthening exercises. Review supine july for form. Assess gait and stair climbing (13 stairs at home, difficult when fatigued at end of day). Pt state her daughter has a therapy ball and may want to incorporated in tx. Continue per PT POC: cont to work on inc strength & gait pattern
--- NOTE | 2020-01-10 13:49 | PT.OTN ---
Current Diagnoses Gluteal tendinitis, right hip (01/10/20) Difficulty in walking, not elsewhere classified (01/10/20) Abnormal posture (01/10/20) Weakness (01/10/20) Physical Therapy Treatment Note PT-OP-A Visit Information Start: 11/17/19 18:51 Freq: Status: Active Protocol: Document 01/10/20 13:10 SP (Rec: 01/10/20 13:49 SP [id number]) Out-Patient Physical Therapy Visit Information Visit Information Visit Type Treatment Note Visit Note R hip pain, better Visit Start Time 13:10 Visit Stop Time 13:49 Total Visit Minutes 39 Visit Number 14 Number of MANAGER FIBER Visits 2 PT-OP-B Current Condition Start: 11/17/19 18:51 Freq: Status: Active Protocol: Document 11/18/19 09:49 [facility] (Rec: 11/18/19 10:45 [facility] [id number]) Current Condition History of Current Condition Onset Date early July Current Complaints R hip History of Current Condition Pt stepped backwards and hit her upper glutes into a kitchen counter corner. Pt reprots pain was excrutiating and she felt like she couldn't put weight into it at first. She iced it but it didn't do much good. Pt feels like what is injured is deep. Pt reports she has had good results with her L shoulder rehab with US and feels like it would be helpful in this hip too. Pt reports pain gets so bad that she gets nauseus. She did not get checked out immediately d/ t COVID concerns. Reports it is all she can do to get through the grocery store 1x/ week. Pt has history of back pain that flares up that started 30 years ago d/t missing a step as she was coming down the stairs and ended up bouncing down on her butt. Pt reports she cannot do her chores around the house and does one thing a day and pays for it after. Pt has to use the rails to do reciprocal gait but where there is no rails she has to do step to. Prior she was able to do reciprocally without rail. She likes to stand to quilt and that does not seem to bother her except that she gets tired faster. Pt reprots she is really tired and feels like she is getting exhausted. Prior Treatments and Tests pain meds, PT for L shoulder after RCR Treatment Goals Patient/Caregiver Goals be able to walk and move to be able to travel with family, be able to tolerate long drives and transitions from sitting to standing, not to feel limited in activity PT-OP-C Subjective Start: 11/17/19 18:51 Freq: Status: Active Protocol: Document 01/10/20 13:10 SP (Rec: 01/10/20 13:49 SP [id number]) OP-PT Subjective Patient Comments Patient Comments Pt stated is doing much better little sore but not having much pain 3-09/09. Yesterday was good no pain, so think turning a corner. PT-OP-F Manual Assessment Start: 11/17/19 18:51 Freq: Status: Active Protocol: Document 11/18/19 09:49 [facility] (Rec: 11/18/19 10:45 [facility] [id number]) Manual Assessments Soft Tissue Assessment Soft Tissue Mobility Assessment R QL tight & R glutes Joint Mobility Assessment Joint Mobility Assessment Iliac crest higher on R & equal greater trochanters PT-OP-G Mobility & Gait Start: 11/17/19 18:51 Freq: Status: Active Protocol: Document 11/18/19 09:49 [facility] (Rec: 11/18/19 10:45 [facility] [id number]) OP Gait Assessment Comments Gait Comments Inc lat lean and dec stance time on RLE, dec push off B PT-OP-J Posture/Palpation/Skin Start: 11/17/19 18:51 Freq: Status: Active Protocol: Document 11/18/19 09:49 [facility] (Rec: 11/18/19 11:01 [facility] [id number]) Posture Evaluation Comments Posture Comments fwd lean at hip and inc kyphosis PT-OP-K Range of Motion Start: 11/17/19 18:51 Freq: Status: Active Protocol: Document 11/18/19 09:49 [facility] (Rec: 11/18/19 10:45 [facility] [id number]) Hip Goniometric Range of Motion Hip Left Active Flexion w/Knee Flexed 102 Straight Leg Raise 76 Abduction 21 Internal Rotation 10 External Rotation 38 Right Active Testing Position Supine Flexion w/Knee Flexed 101 Straight Leg Raise 58 Abduction 22 Internal Rotation 4 External Rotation 23 PT-OP-L Special Tests Start: 11/17/19 18:51 Freq: Status: Active Protocol: Document 11/18/19 09:49 [facility] (Rec: 11/18/19 10:45 [facility] [id number]) Special Tests Lumbar Spine Special Tests Straight Leg Raise Test Results neg B Comments 76 deg L, 59 R Slump Test Results neg B Hip Special Tests Scour Test Test Results neg R PT-OP-M Strength Start: 11/17/19 18:51 Freq: Status: Active Protocol: Document 12/22/19 13:49 [facility] (Rec: 12/22/19 14:32 [facility] [id number]) Hip Strength Hip Manual Muscle Testing Right Flexion (L2) 4- Good- Abduction 3+ Fair+ External Rotation 4- Good- Internal Rotation 4 Good Left Flexion (L2) 3+ Fair+ Abduction 3+ Fair+ External Rotation 4 Good Internal Rotation 4+ Good+ Knee Strength Knee Manual Muscle Testing Right Flexion (S2) 4+ Good+ Extension (L3) 4+ Good+ Left Flexion (S2) 4+ Good+ Extension (L3) 4+ Good+ Ankle/Foot Strength Ankle and Foot Manual Muscle Testing Right Dorsiflexion (L4) 5 Normal Plantarflexion (S1) 5 Normal Left Dorsiflexion (L4) 5 Normal Plantarflexion (S1) 5 Normal Comments PF tested seated PT-OP-Q Treatments Start: 11/17/19 18:51 Freq: Status: Active Protocol: Document 01/10/20 13:10 SP (Rec: 01/10/20 13:49 SP [id number]) Cardio Equipment Bicycle (Upright) Duration (Minutes) 5 Resistance 1 Seat Position 4 Other cued hands on side handles, Therapeutic Exercises Supine Exercises HS Side bilateral Reps/Minutes R 10sec x 5; L 30sec x 2 Comments cues for moving into stretch slowly piriformis Side bilateral Reps/Minutes 30sec x 2 Sidelying Exercises reverse clamshells Sidelying Exercise Name AROM Side bilateral Reps/Minutes 10x Comments no cues needed clamshells Sidelying Exercise Name added resistance Side bilateral Resistance Lv 1 Reps/Minutes 10x Comments cued slow controlled pacing muscula control Sitting Exercises glut stretch Side right Reps/Minutes 30 sec Standing Exercises side steps Side bilateral Resistance YTB Reps/Minutes 10ft x 4 Comments cues for stepping rather than scooting feet Other Exercises Self STM - ball on wall Other Exercise Name glute, QL Side right Reps/Minutes 2 min Comments cues for MFR to glute/QL with intensity that does not cause pain PT-OP-R Modalities Start: 11/17/19 18:51 Freq: Status: Active Protocol: Document 12/29/19 13:53 [facility] (Rec: 12/29/19 14:27 [facility] [id number]) Ultrasound Therapy Treatment Right Posterior Hip Treatment Duration (minutes) 8 Patient Position Sidelying Coupling Medium Ultrasound Gel Applicator Size (cm2) 10 Frequency Setting (mHz) 1 Mode Setting Continuous Intensity Setting (w/cm2) 1 PT-OP-T Assessment and Plan Start: 11/17/19 18:51 Freq: Status: Active Protocol: Document 01/10/20 13:10 SP (Rec: 01/10/20 13:49 SP [id number]) Physical Therapy Assessment Goals activties Short Term Goal (STG) Pt will be able to ascend and descend stairs reciprocally without a rail. 12/21-doing better STG Duration 12/18/19 Manager Recruiting Goal (LTG) Pt will be able to return to all typical activities including housework, grocery shopping, and transition from sit to stand and amb without inc pain. 12/21-can grocery shop without pain, still pain w/sit to stand but easier transition LTG Duration 01/18/20 LEFS Impairment 13/80 Short Term Goal (STG) Pt will improve score on LEFS to 25/80 to show improvement in functional abilities. STG Duration achieved Manager Recruiting Goal (LTG) Pt will improve score on LEFS to 55/80 to show improvement in functional abilities. LTG Duration 01/18/20 strength Short Term Goal (STG) Pt will be indep with HEP. STG Duration achieved Manager Recruiting Goal (LTG) Pt will have >4+/5 LE strength B in order to allow improvement in her ability to doing ADLs without pain. 12/21-improved LTG Duration 01/18/20 Assessment Summary Assessment Pt's pain relief in R glut region 3-4/10 pre tx and 0/10 post tx today, lately seldom twinge. Tolerated added resistance during clamshell with good work out tolerance and seated glut stretch for alternate postion with good feedback. Good form with HEP. Physical Therapy Plan Frequency and Duration Frequency of Treatment 2x/Week Duration of Treatment 2 months Plan of Care Start Date 11/18/19 Plan of Care End Date 01/18/20 Therapeutic Interventions Therapeutic Interventions Aquatic Therapy,Balance Training,Gait Training,Home Exercise Program,Joint Mobilizations,Manual Therapy, Neuromuscular Re-education, Patient/Caregiver Education, Self-Care/Home Management,Soft Tissue Mobilization,Taping, Therapeutic Activities, Therapeutic Exercises Modalities Cold Pack/Ice Massage,Electric Stimulation,Hot Packs, Infrared Therapy,Iontophoresis ,Ultrasound Next Visit Focus/Plan Next Note Type Treatment Note Next Visit Plan Assess response to last tx. Progress TA and hip strengthening. Review supine july for form, resistance clamshell performed today. Assess gait and stair climbing (13 stairs at home, difficult when fatigued at end of day). Pt state her daughter has a therapy ball and may want to incorporated in tx. Continue per PT POC: cont to work on inc strength & gait pattern
--- NOTE | 2020-01-18 10:41 | PT.OTN ---
Current Diagnoses Gluteal tendinitis, right hip (01/18/20) Difficulty in walking, not elsewhere classified (01/18/20) Abnormal posture (01/18/20) Weakness (01/18/20) Physical Therapy Treatment Note PT-OP-A Visit Information Start: 11/17/19 18:51 Freq: Status: Active Protocol: Document 01/18/20 09:06 [facility] (Rec: 01/18/20 10:41 [facility] [id number]) Out-Patient Physical Therapy Visit Information Visit Information Visit Type Progress Note Visit Start Time 09:03 Visit Stop Time 09:42 Total Visit Minutes 39 Visit Number 15 Number of CEMENT DESPATCH OPERATOR Visits 0 PT-OP-B Current Condition Start: 11/17/19 18:51 Freq: Status: Active Protocol: Document 11/18/19 09:49 [facility] (Rec: 11/18/19 10:45 [facility] [id number]) Current Condition History of Current Condition Onset Date early July Current Complaints R hip History of Current Condition Pt stepped backwards and hit her upper glutes into a kitchen counter corner. Pt reprots pain was excrutiating and she felt like she couldn't put weight into it at first. She iced it but it didn't do much good. Pt feels like what is injured is deep. Pt reports she has had good results with her L shoulder rehab with US and feels like it would be helpful in this hip too. Pt reports pain gets so bad that she gets nauseus. She did not get checked out immediately d/ t COVID concerns. Reports it is all she can do to get through the grocery store 1x/ week. Pt has history of back pain that flares up that started 30 years ago d/t missing a step as she was coming down the stairs and ended up bouncing down on her butt. Pt reports she cannot do her chores around the house and does one thing a day and pays for it after. Pt has to use the rails to do reciprocal gait but where there is no rails she has to do step to. Prior she was able to do reciprocally without rail. She likes to stand to quilt and that does not seem to bother her except that she gets tired faster. Pt reprots she is really tired and feels like she is getting exhausted. Prior Treatments and Tests pain meds, PT for L shoulder after RCR Treatment Goals Patient/Caregiver Goals be able to walk and move to be able to travel with family, be able to tolerate long drives and transitions from sitting to standing, not to feel limited in activity PT-OP-C Subjective Start: 11/17/19 18:51 Freq: Status: Active Protocol: Document 01/18/20 09:06 [facility] (Rec: 01/18/20 10:41 [facility] [id number]) OP-PT Subjective Patient Comments Patient Comments Pt reports he has a few twinges now and then but pain is no where like it usually is . Patient Reported Progress Improving Patient Questionnaires Lower Extremity Functional Scale LEFS Score 57 PT-OP-F Manual Assessment Start: 11/17/19 18:51 Freq: Status: Active Protocol: Document 11/18/19 09:49 [facility] (Rec: 11/18/19 10:45 [facility] [id number]) Manual Assessments Soft Tissue Assessment Soft Tissue Mobility Assessment R QL tight & R glutes Joint Mobility Assessment Joint Mobility Assessment Iliac crest higher on R & equal greater trochanters PT-OP-G Mobility & Gait Start: 11/17/19 18:51 Freq: Status: Active Protocol: Document 11/18/19 09:49 [facility] (Rec: 11/18/19 10:45 [facility] [id number]) OP Gait Assessment Comments Gait Comments Inc lat lean and dec stance time on RLE, dec push off B PT-OP-J Posture/Palpation/Skin Start: 11/17/19 18:51 Freq: Status: Active Protocol: Document 11/18/19 09:49 [facility] (Rec: 11/18/19 11:01 [facility] [id number]) Posture Evaluation Comments Posture Comments fwd lean at hip and inc kyphosis PT-OP-K Range of Motion Start: 11/17/19 18:51 Freq: Status: Active Protocol: Document 11/18/19 09:49 [facility] (Rec: 11/18/19 10:45 [facility] [id number]) Hip Goniometric Range of Motion Hip Left Active Flexion w/Knee Flexed 102 Straight Leg Raise 76 Abduction 21 Internal Rotation 10 External Rotation 38 Right Active Testing Position Supine Flexion w/Knee Flexed 101 Straight Leg Raise 58 Abduction 22 Internal Rotation 4 External Rotation 23 PT-OP-L Special Tests Start: 11/17/19 18:51 Freq: Status: Active Protocol: Document 11/18/19 09:49 [facility] (Rec: 11/18/19 10:45 [facility] [id number]) Special Tests Lumbar Spine Special Tests Straight Leg Raise Test Results neg B Comments 76 deg L, 59 R Slump Test Results neg B Hip Special Tests Scour Test Test Results neg R PT-OP-M Strength Start: 11/17/19 18:51 Freq: Status: Active Protocol: Document 01/18/20 09:06 [facility] (Rec: 01/18/20 10:41 [facility] [id number]) Hip Strength Hip Manual Muscle Testing Right Flexion (L2) 4 Good Abduction 4- Good- External Rotation 4+ Good+ Internal Rotation 4 Good Left Flexion (L2) 4 Good Abduction 3+ Fair+ External Rotation 4+ Good+ Internal Rotation 4+ Good+ Knee Strength Knee Manual Muscle Testing Right Flexion (S2) 5 Normal Extension (L3) 5 Normal Left Flexion (S2) 5 Normal Extension (L3) 5 Normal Ankle/Foot Strength Ankle and Foot Manual Muscle Testing Right Dorsiflexion (L4) 5 Normal Plantarflexion (S1) 5 Normal Left Dorsiflexion (L4) 5 Normal Plantarflexion (S1) 5 Normal Comments PF tested seated PT-OP-Q Treatments Start: 11/17/19 18:51 Freq: Status: Active Protocol: Document 01/18/20 09:06 [facility] (Rec: 01/18/20 10:41 [facility] [id number]) Cardio Equipment Recumbent Elliptical (Biodex) Duration (Minutes) 7 Resistance 5 Seat Position 7 Gym Equipment Therapeutic Ball seated Ball Size/Color 65cm Body Position seated Reps/Duration 10 ea Comments 1.pelvic circles B 2. pelvic tilts 3. july w/TA B 4.knee ext B supine Ball Size/Color 55cm Body Position Supine Reps/Duration 15 ea Comments 1. LTR B 2. bridge with lower leg on ball 3. B knee flex Therapeutic Exercises Supine Exercises HS Supine Exercise Name HS & calf stretch w/belt Reps/Minutes 30 sec Standing Exercises stretch Standing Exercise Name calf on stairs Side bilateral Reps/Minutes 30 sec squat Side bilateral Reps/Minutes 10 Comments at rail focus on hip hinge Self-Care/Home Management Treatment Education Patient Education Home Exercise Program PT-OP-R Modalities Start: 06/17/20 18:51 Freq: Status: Active Protocol: Document 12/29/19 13:53 [facility] (Rec: 12/29/19 14:27 [facility] [id number]) Ultrasound Therapy Treatment Right Posterior Hip Treatment Duration (minutes) 8 Patient Position Sidelying Coupling Medium Ultrasound Gel Applicator Size (cm2) 10 Frequency Setting (mHz) 1 Mode Setting Continuous Intensity Setting (w/cm2) 1 PT-OP-T Assessment and Plan Start: 11/17/19 18:51 Freq: Status: Active Protocol: Document 01/18/20 09:06 [facility] (Rec: 01/18/20 10:41 [facility] [id number]) Physical Therapy Assessment Goals activties Short Term Goal (STG) Pt will be able to ascend and descend stairs reciprocally without a rail. 12/21-doing better STG Duration achieved Longterm Goal (LTG) Pt will be able to return to all typical activities including housework, grocery shopping, and transition from sit to stand and amb without inc pain. 12/21-can grocery shop without pain, still pain w/sit to stand but easier transition 01/17-only limited with small amt pain w/transitions LTG Duration 03/19 LEFS Impairment 13/80 Short Term Goal (STG) Pt will improve score on LEFS to 25/80 to show improvement in functional abilities. STG Duration achieved Longterm Goal (LTG) Pt will improve score on LEFS to 55/80 to show improvement in functional abilities. LTG Duration achieved strength Short Term Goal (STG) Pt will be indep with HEP. STG Duration achieved Rate Quoting Operator Goal (LTG) Pt will have >4+/5 LE strength B in order to allow improvement in her ability to doing ADLs without pain. 12/21-improved 01/17-improved LTG Duration 03/19 Assessment Summary Assessment Pt did well with tball exercises with cueing for core activiation throughout. Improving strength and functional ability. Reports pain only occ with transitions at about 1/10 now and is less noticable. She is returning to all activities iwth min pain and would benfit from doing PT for cont to work on HEP & strengthening. Physical Therapy Plan Frequency and Duration Frequency of Treatment 1-2x/week Duration of Treatment 2 months Plan of Care Start Date 01/18/20 Plan of Care End Date 03/19/20 Therapeutic Interventions Therapeutic Interventions Aquatic Therapy,Balance Training,Gait Training,Home Exercise Program,Joint Mobilizations,Manual Therapy, Neuromuscular Re-education, Patient/Caregiver Education, Self-Care/Home Management,Soft Tissue Mobilization,Taping, Therapeutic Activities, Therapeutic Exercises Modalities Cold Pack/Ice Massage,Electric Stimulation,Hot Packs, Infrared Therapy,Iontophoresis ,Ultrasound Next Visit Focus/Plan Next Note Type Treatment Note Next Visit Plan work on core & hip stability
--- NOTE | 2020-01-18 10:41 | PT.OPPOC ---
Physical, Occupational & Speech Therapy At [facility] Current Diagnoses Gluteal tendinitis, right hip (01/18/20) Difficulty in walking, not elsewhere classified (01/18/20) Abnormal posture (01/18/20) Weakness (01/18/20) Visit Care Team Role Provider Type Kaila Estrada PA-C Family Provider Advanced Evaluation Assistant Primary Care Provider Specialty: Internal Medicine Address: [address] [place] [address], [id number] Email: [email or web address] Narciso Almaraz MD Attending Provider Non-Staff Referring Provider Specialty: Orthopedics Address: [address] [place] [address], [id number] Email: Plan Of Care PT-OP-T Assessment and Plan Start: 11/17/19 18:51 Freq: Status: Active Protocol: Document 01/18/20 09:06 [facility] (Rec: 01/18/20 10:41 [facility] [id number]) Physical Therapy Assessment Goals activties Short Term Goal (STG) Pt will be able to ascend and descend stairs reciprocally without a rail. 12/21-doing better STG Duration achieved Masking Machine Operator Goal (LTG) Pt will be able to return to all typical activities including housework, grocery shopping, and transition from sit to stand and amb without inc pain. 12/21-can grocery shop without pain, still pain w/sit to stand but easier transition 01/17-only limited with small amt pain w/transitions LTG Duration 03/19 LEFS Impairment 13/80 Short Term Goal (STG) Pt will improve score on LEFS to 25/80 to show improvement in functional abilities. STG Duration achieved Masking Machine Operator Goal (LTG) Pt will improve score on LEFS to 55/80 to show improvement in functional abilities. LTG Duration achieved strength Short Term Goal (STG) Pt will be indep with HEP. STG Duration achieved Masking Machine Operator Goal (LTG) Pt will have >4+/5 LE strength B in order to allow improvement in her ability to doing ADLs without pain. 12/21-improved 01/17-improved LTG Duration 03/19 Assessment Summary Assessment Pt did well with tball exercises with cueing for core activiation throughout. Improving strength and functional ability. Reports pain only occ with transitions at about 1/10 now and is less noticable. She is returning to all activities iwth min pain and would benfit from doing PT for cont to work on HEP & strengthening. Physical Therapy Plan Frequency and Duration Frequency of Treatment 1-2x/week Duration of Treatment 2 months Plan of Care Start Date 01/18/20 Plan of Care End Date 03/19/20 Therapeutic Interventions Therapeutic Interventions Aquatic Therapy,Balance Training,Gait Training,Home Exercise Program,Joint Mobilizations,Manual Therapy, Neuromuscular Re-education, Patient/Caregiver Education, Self-Care/Home Management,Soft Tissue Mobilization,Taping, Therapeutic Activities, Therapeutic Exercises Modalities Cold Pack/Ice Massage,Electric Stimulation,Hot Packs, Infrared Therapy,Iontophoresis ,Ultrasound Next Visit Focus/Plan Next Note Type Treatment Note Next Visit Plan work on core & hip stability Plan of Care Dates Plan of Care Start Date 01/18/20 Plan of Care End Date 03/19/20 Electronically Signed by: Nathalie Riley, PT 01/18/20 [id number] Please Sign and Return: I have reviewed this Plan of Care and certify that the skilled therapy services above are required to meet the patient?s needs. Physician Signature Date Printed Name and Credentials Clinical Instructor Signature Printed Name and Credentials
--- NOTE | 2020-01-26 14:33 | PT.OTN ---
Current Diagnoses Gluteal tendinitis, right hip (01/26/20) Difficulty in walking, not elsewhere classified (01/26/20) Abnormal posture (01/26/20) Weakness (01/26/20) Physical Therapy Treatment Note PT-OP-A Visit Information Start: 11/17/19 18:51 Freq: Status: Active Protocol: Document 01/26/20 14:27 [facility] (Rec: 01/26/20 14:33 [facility] [id number]) Out-Patient Physical Therapy Visit Information Visit Information Visit Type Treatment Note Visit Start Time 13:48 Visit Stop Time 14:27 Total Visit Minutes 39 Visit Number 16 Number of RELEASE ENGINEER Visits 0 PT-OP-B Current Condition Start: 11/17/19 18:51 Freq: Status: Active Protocol: Document 11/18/19 09:49 [facility] (Rec: 11/18/19 10:45 [facility] [id number]) Current Condition History of Current Condition Onset Date early July Current Complaints R hip History of Current Condition Pt stepped backwards and hit her upper glutes into a kitchen counter corner. Pt reprots pain was excrutiating and she felt like she couldn't put weight into it at first. She iced it but it didn't do much good. Pt feels like what is injured is deep. Pt reports she has had good results with her L shoulder rehab with [facility] and feels like it would be helpful in this hip too. Pt reports pain gets so bad that she gets nauseus. She did not get checked out immediately d/ t COVID concerns. Reports it is all she can do to get through the grocery store 1x/ week. Pt has history of back pain that flares up that started 30 years ago d/t missing a step as she was coming down the stairs and ended up bouncing down on her butt. Pt reports she cannot do her chores around the house and does one thing a day and pays for it after. Pt has to use the rails to do reciprocal gait but where there is no rails she has to do step to. Prior she was able to do reciprocally without rail. She likes to stand to quilt and that does not seem to bother her except that she gets tired faster. Pt reprots she is really tired and feels like she is getting exhausted. Prior Treatments and Tests pain meds, PT for L shoulder after RCR Treatment Goals Patient/Caregiver Goals be able to walk and move to be able to travel with family, be able to tolerate long drives and transitions from sitting to standing, not to feel limited in activity PT-OP-C Subjective Start: 11/17/19 18:51 Freq: Status: Active Protocol: Document 01/26/20 14:27 [facility] (Rec: 01/26/20 14:33 [facility] [id number]) OP-PT Subjective Patient Comments Patient Comments min discomfort when getting up from the couch is the only time noting pain. Doing exercises daily mult times a day. Patient Reported Progress Improving PT-OP-F Manual Assessment Start: 11/17/19 18:51 Freq: Status: Active Protocol: Document 11/18/19 09:49 [facility] (Rec: 11/18/19 10:45 [facility] [id number]) Manual Assessments Soft Tissue Assessment Soft Tissue Mobility Assessment R QL tight & R glutes Joint Mobility Assessment Joint Mobility Assessment Iliac crest higher on R & equal greater trochanters PT-OP-G Mobility & Gait Start: 11/17/19 18:51 Freq: Status: Active Protocol: Document 11/18/19 09:49 [facility] (Rec: 11/18/19 10:45 [facility] [id number]) OP Gait Assessment Comments Gait Comments Inc lat lean and dec stance time on RLE, dec push off B PT-OP-J Posture/Palpation/Skin Start: 11/17/19 18:51 Freq: Status: Active Protocol: Document 11/18/19 09:49 [facility] (Rec: 11/18/19 11:01 [facility] [id number]) Posture Evaluation Comments Posture Comments fwd lean at hip and inc kyphosis PT-OP-K Range of Motion Start: 11/17/19 18:51 Freq: Status: Active Protocol: Document 11/18/19 09:49 [facility] (Rec: 11/18/19 10:45 [facility] [id number]) Hip Goniometric Range of Motion Hip Left Active Flexion w/Knee Flexed 102 Straight Leg Raise 76 Abduction 21 Internal Rotation 10 External Rotation 38 Right Active Testing Position Supine Flexion w/Knee Flexed 101 Straight Leg Raise 58 Abduction 22 Internal Rotation 4 External Rotation 23 PT-OP-L Special Tests Start: 11/17/19 18:51 Freq: Status: Active Protocol: Document 11/18/19 09:49 [facility] (Rec: 11/18/19 10:45 [facility] [id number]) Special Tests Lumbar Spine Special Tests Straight Leg Raise Test Results neg B Comments 76 deg L, 59 R Slump Test Results neg B Hip Special Tests Scour Test Test Results neg R PT-OP-M Strength Start: 11/17/19 18:51 Freq: Status: Active Protocol: Document 01/18/20 09:06 [facility] (Rec: 01/18/20 10:41 [facility] [id number]) Hip Strength Hip Manual Muscle Testing Right Flexion (L2) 4 Good Abduction 4- Good- External Rotation 4+ Good+ Internal Rotation 4 Good Left Flexion (L2) 4 Good Abduction 3+ Fair+ External Rotation 4+ Good+ Internal Rotation 4+ Good+ Knee Strength Knee Manual Muscle Testing Right Flexion (S2) 5 Normal Extension (L3) 5 Normal Left Flexion (S2) 5 Normal Extension (L3) 5 Normal Ankle/Foot Strength Ankle and Foot Manual Muscle Testing Right Dorsiflexion (L4) 5 Normal Plantarflexion (S1) 5 Normal Left Dorsiflexion (L4) 5 Normal Plantarflexion (S1) 5 Normal Comments PF tested seated PT-OP-Q Treatments Start: 11/17/19 18:51 Freq: Status: Active Protocol: Document 01/26/20 14:27 [facility] (Rec: 01/26/20 14:33 [facility] [id number]) Gym Equipment Shuttle Balance red clips Comments fwd & side: WBOS & NBOS with progressive dec in hand support Therapeutic Exercises Standing Exercises SLS Standing Exercise Name hip hike w/focus on core & glute Side bilateral Reps/Minutes 15 Comments 4 in step with rail squat Side bilateral Reps/Minutes 15 Comments chair behind with focus on hip hinge-max cues Neuro Re-Education Treatment Balance Activities bosu Details step ups with 5 sec balance Equipment 1 rail PRN Reps/Duration 5 B SLS Details focus on neutral pelvis B in mirror Other Activities PNF Details ant elevation & post dep Reps/Duration R Comments 1. rhythmic initiation 2. COI 3. sustained holds with LE patterns 4. COI w/LE patterns PT-OP-R Modalities Start: 11/17/19 18:51 Freq: Status: Active Protocol: Document 12/29/19 13:53 [facility] (Rec: 12/29/19 14:27 [facility] [id number]) Ultrasound Therapy Treatment Right Posterior Hip Treatment Duration (minutes) 8 Patient Position Sidelying Coupling Medium Ultrasound Gel Applicator Size (cm2) 10 Frequency Setting (mHz) 1 Mode Setting Continuous Intensity Setting (w/cm2) 1 PT-OP-T Assessment and Plan Start: 11/17/19 18:51 Freq: Status: Active Protocol: Document 01/26/20 14:27 [facility] (Rec: 01/26/20 14:33 [facility] [id number]) Physical Therapy Assessment Goals activties Short Term Goal (STG) Pt will be able to ascend and descend stairs reciprocally without a rail. 12/21-doing better STG Duration achieved Nutrition Program Instructor Goal (LTG) Pt will be able to return to all typical activities including housework, grocery shopping, and transition from sit to stand and amb without inc pain. 12/21-can grocery shop without pain, still pain w/sit to stand but easier transition 01/17-only limited with small amt pain w/transitions LTG Duration 03/19 LEFS Impairment 13/80 Short Term Goal (STG) Pt will improve score on LEFS to 25/80 to show improvement in functional abilities. STG Duration achieved Half-Way Goal (LTG) Pt will improve score on LEFS to 55/80 to show improvement in functional abilities. LTG Duration achieved strength Short Term Goal (STG) Pt will be indep with HEP. STG Duration achieved Half-Way Goal (LTG) Pt will have >4+/5 LE strength B in order to allow improvement in her ability to doing ADLs without pain. 12/21-improved 01/17-improved LTG Duration 03/19 Assessment Summary Assessment Pt required correcitonw ith form form for squats and hip hikes. She had difficulty with balance exercises and was challenged by PNF especially post depression Physical Therapy Plan Frequency and Duration Frequency of Treatment 1-2x/week Duration of Treatment 2 months Plan of Care Start Date 01/18/20 Plan of Care End Date 03/19/20 Therapeutic Interventions Therapeutic Interventions Aquatic Therapy,Balance Training,Gait Training,Home Exercise Program,Joint Mobilizations,Manual Therapy, Neuromuscular Re-education, Patient/Caregiver Education, Self-Care/Home Management,Soft Tissue Mobilization,Taping, Therapeutic Activities, Therapeutic Exercises Modalities Cold Pack/Ice Massage,Electric Stimulation,Hot Packs, Infrared Therapy,Iontophoresis ,Ultrasound Next Visit Focus/Plan Next Note Type Treatment Note Next Visit Plan work on core & hip stability, review squats, hip hike & SLS
--- NOTE | 2020-02-02 14:29 | PT.OTN ---
Current Diagnoses Gluteal tendinitis, right hip (02/02/20) Difficulty in walking, not elsewhere classified (02/02/20) Abnormal posture (02/02/20) Weakness (02/02/20) Physical Therapy Treatment Note PT-OP-A Visit Information Start: 11/17/19 18:51 Freq: Status: Active Protocol: Document 02/02/20 13:45 [facility] (Rec: 02/02/20 14:29 [facility] [id number]) Out-Patient Physical Therapy Visit Information Visit Information Visit Type Treatment Note Visit Start Time 13:45 Visit Stop Time 14:25 Total Visit Minutes 40 Visit Number 17 Number of SPECIAL EDUCATION TEACHERS Visits 0 PT-OP-B Current Condition Start: 11/17/19 18:51 Freq: Status: Active Protocol: Document 11/18/19 09:49 [facility] (Rec: 11/18/19 10:45 [facility] [id number]) Current Condition History of Current Condition Onset Date early July Current Complaints R hip History of Current Condition Pt stepped backwards and hit her upper glutes into a kitchen counter corner. Pt reprots pain was excrutiating and she felt like she couldn't put weight into it at first. She iced it but it didn't do much good. Pt feels like what is injured is deep. Pt reports she has had good results with her L shoulder rehab with [facility] and feels like it would be helpful in this hip too. Pt reports pain gets so bad that she gets nauseus. She did not get checked out immediately d/ t COVID concerns. Reports it is all she can do to get through the grocery store 1x/ week. Pt has history of back pain that flares up that started 30 years ago d/t missing a step as she was coming down the stairs and ended up bouncing down on her butt. Pt reports she cannot do her chores around the house and does one thing a day and pays for it after. Pt has to use the rails to do reciprocal gait but where there is no rails she has to do step to. Prior she was able to do reciprocally without rail. She likes to stand to quilt and that does not seem to bother her except that she gets tired faster. Pt reprots she is really tired and feels like she is getting exhausted. Prior Treatments and Tests pain meds, PT for L shoulder after RCR Treatment Goals Patient/Caregiver Goals be able to walk and move to be able to travel with family, be able to tolerate long drives and transitions from sitting to standing, not to feel limited in activity PT-OP-C Subjective Start: 11/17/19 18:51 Freq: Status: Active Protocol: Document 02/02/20 13:45 [facility] (Rec: 02/02/20 14:29 [facility] [id number]) OP-PT Subjective Patient Comments Patient Comments Pt reports her hip is doing pretty good. Only occasional pain that is minor Patient Reported Progress Improving PT-OP-F Manual Assessment Start: 11/17/19 18:51 Freq: Status: Active Protocol: Document 11/18/19 09:49 [facility] (Rec: 11/18/19 10:45 [facility] [id number]) Manual Assessments Soft Tissue Assessment Soft Tissue Mobility Assessment R QL tight & R glutes Joint Mobility Assessment Joint Mobility Assessment Iliac crest higher on R & equal greater trochanters PT-OP-G Mobility & Gait Start: 11/17/19 18:51 Freq: Status: Active Protocol: Document 11/18/19 09:49 [facility] (Rec: 11/18/19 10:45 [facility] [id number]) OP Gait Assessment Comments Gait Comments Inc lat lean and dec stance time on RLE, dec push off B PT-OP-J Posture/Palpation/Skin Start: 11/17/19 18:51 Freq: Status: Active Protocol: Document 11/18/19 09:49 [facility] (Rec: 11/18/19 11:01 [facility] [id number]) Posture Evaluation Comments Posture Comments fwd lean at hip and inc kyphosis PT-OP-K Range of Motion Start: 11/17/19 18:51 Freq: Status: Active Protocol: Document 11/18/19 09:49 [facility] (Rec: 11/18/19 10:45 [facility] [id number]) Hip Goniometric Range of Motion Hip Left Active Flexion w/Knee Flexed 102 Straight Leg Raise 76 Abduction 21 Internal Rotation 10 External Rotation 38 Right Active Testing Position Supine Flexion w/Knee Flexed 101 Straight Leg Raise 58 Abduction 22 Internal Rotation 4 External Rotation 23 PT-OP-L Special Tests Start: 11/17/19 18:51 Freq: Status: Active Protocol: Document 11/18/19 09:49 [facility] (Rec: 11/18/19 10:45 [facility] [id number]) Special Tests Lumbar Spine Special Tests Straight Leg Raise Test Results neg B Comments 76 deg L, 59 R Slump Test Results neg B Hip Special Tests Scour Test Test Results neg R PT-OP-M Strength Start: 11/17/19 18:51 Freq: Status: Active Protocol: Document 01/18/20 09:06 [facility] (Rec: 01/18/20 10:41 [facility] [id number]) Hip Strength Hip Manual Muscle Testing Right Flexion (L2) 4 Good Abduction 4- Good- External Rotation 4+ Good+ Internal Rotation 4 Good Left Flexion (L2) 4 Good Abduction 3+ Fair+ External Rotation 4+ Good+ Internal Rotation 4+ Good+ Knee Strength Knee Manual Muscle Testing Right Flexion (S2) 5 Normal Extension (L3) 5 Normal Left Flexion (S2) 5 Normal Extension (L3) 5 Normal Ankle/Foot Strength Ankle and Foot Manual Muscle Testing Right Dorsiflexion (L4) 5 Normal Plantarflexion (S1) 5 Normal Left Dorsiflexion (L4) 5 Normal Plantarflexion (S1) 5 Normal Comments PF tested seated PT-OP-Q Treatments Start: 11/17/19 18:51 Freq: Status: Active Protocol: Document 02/02/20 13:45 [facility] (Rec: 02/02/20 14:29 [facility] [id number]) Cardio Equipment Recumbent Stepper (Sci-Fit) Duration (Minutes) 6 Resistance 6 Seat Position 10 Gym Equipment Shuttle Balance red clips Comments fwd & side: WBOS & NBOS with progressive dec in hand support Therapeutic Ball seated Ball Size/Color 65cm Body Position seated Reps/Duration 10 ea Comments 1.pelvic circles B 2. pelvic tilts 3. july w/TA B 4.knee ext B Therapeutic Exercises Standing Exercises SLS Standing Exercise Name hip hike w/focus on core & glute Side bilateral Reps/Minutes 15 Comments 4 in step with rail Manual Therapy Treatment Soft Tissue Mobilization iliacus Body Location R Mobilization Type Strumming,Sustained Pressure Intensity/Depth Moderate Joint Mobilizations hip Direction IR FM Neuro Re-Education Treatment Balance Activities bosu Equipment 1 rail PRN Comments 1.step ups 5 B with 5 sec balance 2. mini squats x15 SLS Details focus on neutral pelvis B in mirror PT-OP-R Modalities Start: 11/17/19 18:51 Freq: Status: Active Protocol: Document 12/29/19 13:53 [facility] (Rec: 12/29/19 14:27 [facility] [id number]) Ultrasound Therapy Treatment Right Posterior Hip Treatment Duration (minutes) 8 Patient Position Sidelying Coupling Medium Ultrasound Gel Applicator Size (cm2) 10 Frequency Setting (mHz) 1 Mode Setting Continuous Intensity Setting (w/cm2) 1 PT-OP-T Assessment and Plan Start: 11/17/19 18:51 Freq: Status: Active Protocol: Document 02/02/20 13:45 [facility] (Rec: 02/02/20 14:29 [facility] [id number]) Physical Therapy Assessment Goals activties Short Term Goal (STG) Pt will be able to ascend and descend stairs reciprocally without a rail. 12/21-doing better STG Duration achieved Skilled Nursing Goal (LTG) Pt will be able to return to all typical activities including housework, grocery shopping, and transition from sit to stand and amb without inc pain. 12/21-can grocery shop without pain, still pain w/sit to stand but easier transition 01/17-only limited with small amt pain w/transitions LTG Duration 03/19 LEFS Impairment 13/80 Short Term Goal (STG) Pt will improve score on LEFS to 25/80 to show improvement in functional abilities. STG Duration achieved Meter Tester Primary Goal (LTG) Pt will improve score on LEFS to 55/80 to show improvement in functional abilities. LTG Duration achieved strength Short Term Goal (STG) Pt will be indep with HEP. STG Duration achieved Meter Tester Primary Goal (LTG) Pt will have >4+/5 LE strength B in order to allow improvement in her ability to doing ADLs without pain. 12/21-improved 01/17-improved LTG Duration 03/19 Assessment Summary Assessment Cueing still required with hip hikes still. She is improving with balance, but is still very challenged by bosu. She is getting close to dc. Physical Therapy Plan Frequency and Duration Frequency of Treatment 1-2x/week Duration of Treatment 2 months Plan of Care Start Date 01/18/20 Plan of Care End Date 03/19/20 Next Visit Focus/Plan Next Note Type Treatment Note Next Visit Plan work on core & hip stability, review squats, hip hike & SLS- possible dc in next couple session- work on balance-
--- NOTE | 2020-02-09 17:19 | PT.OTN ---
Current Diagnoses Gluteal tendinitis, right hip (02/09/20) Difficulty in walking, not elsewhere classified (02/09/20) Abnormal posture (02/09/20) Weakness (02/09/20) Physical Therapy Treatment Note PT-OP-A Visit Information Start: 11/17/19 18:51 Freq: Status: Active Protocol: Document 02/09/20 17:09 AW (Rec: 02/09/20 17:19 AW [id number]) Out-Patient Physical Therapy Visit Information Visit Information Visit Type Treatment Note Visit Start Time 02:00 Visit Stop Time 16:45 Total Visit Minutes 43 Visit Number 18 Number of INTERNAL COMMUNICATIONS INTERN Visits 0 PT-OP-B Current Condition Start: 11/17/19 18:51 Freq: Status: Active Protocol: Document 11/18/19 09:49 LR (Rec: 11/18/19 10:45 [facility] [id number]) Current Condition History of Current Condition Onset Date early July Current Complaints R hip History of Current Condition Pt stepped backwards and hit her upper glutes into a kitchen counter corner. Pt reprots pain was excrutiating and she felt like she couldn't put weight into it at first. She iced it but it didn't do much good. Pt feels like what is injured is deep. Pt reports she has had good results with her L shoulder rehab with US and feels like it would be helpful in this hip too. Pt reports pain gets so bad that she gets nauseus. She did not get checked out immediately d/ t COVID concerns. Reports it is all she can do to get through the grocery store 1x/ week. Pt has history of back pain that flares up that started 30 years ago d/t missing a step as she was coming down the stairs and ended up bouncing down on her butt. Pt reports she cannot do her chores around the house and does one thing a day and pays for it after. Pt has to use the rails to do reciprocal gait but where there is no rails she has to do step to. Prior she was able to do reciprocally without rail. She likes to stand to quilt and that does not seem to bother her except that she gets tired faster. Pt reprots she is really tired and feels like she is getting exhausted. Prior Treatments and Tests pain meds, PT for L shoulder after RCR Treatment Goals Patient/Caregiver Goals be able to walk and move to be able to travel with family, be able to tolerate long drives and transitions from sitting to standing, not to feel limited in activity PT-OP-C Subjective Start: 11/17/19 18:51 Freq: Status: Active Protocol: Document 02/09/20 17:09 AW (Rec: 02/09/20 17:19 AW [id number]) OP-PT Subjective Patient Comments Patient Comments Pt reports an occasional jolt to her right hip when moving after prolonged inactivity. She is much more focused today on the things she can do such as walking longer and managing stairs without pain. Patient Reported Progress Improving PT-OP-F Manual Assessment Start: 11/17/19 18:51 Freq: Status: Active Protocol: Document 11/18/19 09:49 [facility] (Rec: 11/18/19 10:45 [facility] [id number]) Manual Assessments Soft Tissue Assessment Soft Tissue Mobility Assessment R QL tight & R glutes Joint Mobility Assessment Joint Mobility Assessment Iliac crest higher on R & equal greater trochanters PT-OP-G Mobility & Gait Start: 11/17/19 18:51 Freq: Status: Active Protocol: Document 11/18/19 09:49 [facility] (Rec: 11/18/19 10:45 [facility] [id number]) OP Gait Assessment Comments Gait Comments Inc lat lean and dec stance time on RLE, dec push off B PT-OP-J Posture/Palpation/Skin Start: 11/17/19 18:51 Freq: Status: Active Protocol: Document 11/18/19 09:49 [facility] (Rec: 11/18/19 11:01 [facility] [id number]) Posture Evaluation Comments Posture Comments fwd lean at hip and inc kyphosis PT-OP-K Range of Motion Start: 11/17/19 18:51 Freq: Status: Active Protocol: Document 11/18/19 09:49 [facility] (Rec: 11/18/19 10:45 [facility] [id number]) Hip Goniometric Range of Motion Hip Left Active Flexion w/Knee Flexed 102 Straight Leg Raise 76 Abduction 21 Internal Rotation 10 External Rotation 38 Right Active Testing Position Supine Flexion w/Knee Flexed 101 Straight Leg Raise 58 Abduction 22 Internal Rotation 4 External Rotation 23 PT-OP-L Special Tests Start: 11/17/19 18:51 Freq: Status: Active Protocol: Document 11/18/19 09:49 LR (Rec: 11/18/19 10:45 [facility] [id number]) Special Tests Lumbar Spine Special Tests Straight Leg Raise Test Results neg B Comments 76 deg L, 59 R Slump Test Results neg B Hip Special Tests Scour Test Test Results neg R PT-OP-M Strength Start: 11/17/19 18:51 Freq: Status: Active Protocol: Document 01/18/20 09:06 [facility] (Rec: 01/18/20 10:41 [facility] [id number]) Hip Strength Hip Manual Muscle Testing Right Flexion (L2) 4 Good Abduction 4- Good- External Rotation 4+ Good+ Internal Rotation 4 Good Left Flexion (L2) 4 Good Abduction 3+ Fair+ External Rotation 4+ Good+ Internal Rotation 4+ Good+ Knee Strength Knee Manual Muscle Testing Right Flexion (S2) 5 Normal Extension (L3) 5 Normal Left Flexion (S2) 5 Normal Extension (L3) 5 Normal Ankle/Foot Strength Ankle and Foot Manual Muscle Testing Right Dorsiflexion (L4) 5 Normal Plantarflexion (S1) 5 Normal Left Dorsiflexion (L4) 5 Normal Plantarflexion (S1) 5 Normal Comments PF tested seated PT-OP-Q Treatments Start: 11/17/19 18:51 Freq: Status: Active Protocol: Document 02/09/20 17:09 AW (Rec: 02/09/20 17:19 AW [email or web address]) Cardio Equipment Recumbent Stepper (Sci-Fit) Duration (Minutes) 6 Resistance 6 Seat Position 10 Gym Equipment Shuttle Balance red clips Comments fwd & side: WBOS (EO/EC) & NBOS (EO) with progressive dec in hand support Therapeutic Exercises Standing Exercises SLS with mirror Side bilateral Equipment Used counter for intermittent support Comments focus on neutral pelvis/ counteracting hip drop SLS Standing Exercise Name hip hike w/focus on core & glute Side bilateral Reps/Minutes 15 Comments 4 in step with rail squat Side bilateral Reps/Minutes 15 Comments at rail for intermittent support; focus on hip hinge Neuro Re-Education Treatment Balance Activities SLS Details focus on neutral pelvis B in mirror Comments progressed to pre-swing practice with awareness of glut engagement PT-OP-R Modalities Start: 11/17/19 18:51 Freq: Status: Active Protocol: Document 12/29/19 13:53 [facility] (Rec: 12/29/19 14:27 [facility] [id number]) Ultrasound Therapy Treatment Right Posterior Hip Treatment Duration (minutes) 8 Patient Position Sidelying Coupling Medium Ultrasound Gel Applicator Size (cm2) 10 Frequency Setting (mHz) 1 Mode Setting Continuous Intensity Setting (w/cm2) 1 PT-OP-T Assessment and Plan Start: 11/17/19 18:51 Freq: Status: Active Protocol: Document 02/09/20 17:09 AW (Rec: 02/09/20 17:19 AW [email or web address]) Physical Therapy Assessment Goals activties Short Term Goal (STG) Pt will be able to ascend and descend stairs reciprocally without a rail. 12/21-doing better STG Duration achieved Marketing Sales Consultant Goal (LTG) Pt will be able to return to all typical activities including housework, grocery shopping, and transition from sit to stand and amb without inc pain. 12/21-can grocery shop without pain, still pain w/sit to stand but easier transition 01/17-only limited with small amt pain w/transitions LTG Duration 03/19 LEFS Impairment 13/80 Short Term Goal (STG) Pt will improve score on LEFS to 25/80 to show improvement in functional abilities. STG Duration achieved [employer] Goal (LTG) Pt will improve score on LEFS to 55/80 to show improvement in functional abilities. LTG Duration achieved strength Short Term Goal (STG) Pt will be indep with HEP. STG Duration achieved [employer] Goal (LTG) Pt will have >4+/5 LE strength B in order to allow improvement in her ability to doing ADLs without pain. 12/21-improved 01/17-improved LTG Duration 03/19 Assessment Summary Assessment Pt responds well to cues for neutral pelvis in single leg stance and in gait. Treatment today focused on balance interventions along with postural awareness in standing and in gait. Physical Therapy Plan Frequency and Duration Frequency of Treatment 1-2x/week Duration of Treatment 2 months Plan of Care Start Date 01/18/20 Plan of Care End Date 03/19/20 Therapeutic Interventions Therapeutic Interventions Aquatic Therapy,Balance Training,Gait Training,Home Exercise Program,Joint Mobilizations,Manual Therapy, Neuromuscular Re-education, Patient/Caregiver Education, Self-Care/Home Management,Soft Tissue Mobilization,Taping, Therapeutic Activities, Therapeutic Exercises Modalities Cold Pack/Ice Massage,Electric Stimulation,Hot Packs, Infrared Therapy,Iontophoresis ,Ultrasound Next Visit Focus/Plan Next Note Type Treatment Note Next Visit Plan work on core & hip stability, review squats, hip hike & SLS- possible dc in next couple session- work on balance-
--- NOTE | 2020-02-14 16:23 | PT.OTN ---
Current Diagnoses Gluteal tendinitis, right hip (02/14/20) Difficulty in walking, not elsewhere classified (02/14/20) Abnormal posture (02/14/20) Weakness (02/14/20) Physical Therapy Treatment Note PT-OP-A Visit Information Start: 11/17/19 18:51 Freq: Status: Active Protocol: Document 02/14/20 12:58 [facility] (Rec: 02/14/20 13:45 [facility] [id number]) Out-Patient Physical Therapy Visit Information Visit Information Visit Type Treatment Note Visit Start Time 13:00 Visit Stop Time 13:45 Total Visit Minutes 43 Visit Number 19 Number of DRIVER/MERCHANDISER Visits 0 PT-OP-B Current Condition Start: 11/17/19 18:51 Freq: Status: Active Protocol: Document 11/18/19 09:49 LR (Rec: 11/18/19 10:45 [facility] [id number]) Current Condition History of Current Condition Onset Date early July Current Complaints R hip History of Current Condition Pt stepped backwards and hit her upper glutes into a kitchen counter corner. Pt reprots pain was excrutiating and she felt like she couldn't put weight into it at first. She iced it but it didn't do much good. Pt feels like what is injured is deep. Pt reports she has had good results with her L shoulder rehab with [facility] and feels like it would be helpful in this hip too. Pt reports pain gets so bad that she gets nauseus. She did not get checked out immediately d/ t COVID concerns. Reports it is all she can do to get through the grocery store 1x/ week. Pt has history of back pain that flares up that started 30 years ago d/t missing a step as she was coming down the stairs and ended up bouncing down on her butt. Pt reports she cannot do her chores around the house and does one thing a day and pays for it after. Pt has to use the rails to do reciprocal gait but where there is no rails she has to do step to. Prior she was able to do reciprocally without rail. She likes to stand to quilt and that does not seem to bother her except that she gets tired faster. Pt reprots she is really tired and feels like she is getting exhausted. Prior Treatments and Tests pain meds, PT for L shoulder after RCR Treatment Goals Patient/Caregiver Goals be able to walk and move to be able to travel with family, be able to tolerate long drives and transitions from sitting to standing, not to feel limited in activity PT-OP-C Subjective Start: 11/17/19 18:51 Freq: Status: Active Protocol: Document 02/14/20 12:58 SAK (Rec: 02/14/20 13:45 [facility] [id number]) OP-PT Subjective Patient Comments Patient Comments Tired, but otherwise no new c/ o. States she is incorporating the exercises into her day. Feels comfortable with discharge after her last scheduled appointment 03/08/20; 2 more appointments. Patient Reported Progress Improving PT-OP-F Manual Assessment Start: 11/17/19 18:51 Freq: Status: Active Protocol: Document 11/18/19 09:49 [facility] (Rec: 11/18/19 10:45 [facility] [id number]) Manual Assessments Soft Tissue Assessment Soft Tissue Mobility Assessment R QL tight & R glutes Joint Mobility Assessment Joint Mobility Assessment Iliac crest higher on R & equal greater trochanters PT-OP-G Mobility & Gait Start: 11/17/19 18:51 Freq: Status: Active Protocol: Document 11/18/19 09:49 [facility] (Rec: 11/18/19 10:45 [facility] [id number]) OP Gait Assessment Comments Gait Comments Inc lat lean and dec stance time on RLE, dec push off B PT-OP-J Posture/Palpation/Skin Start: 11/17/19 18:51 Freq: Status: Active Protocol: Document 11/18/19 09:49 [facility] (Rec: 11/18/19 11:01 [facility] [id number]) Posture Evaluation Comments Posture Comments fwd lean at hip and inc kyphosis PT-OP-K Range of Motion Start: 11/17/19 18:51 Freq: Status: Active Protocol: Document 11/18/19 09:49 [facility] (Rec: 11/18/19 10:45 [facility] [id number]) Hip Goniometric Range of Motion Hip Left Active Flexion w/Knee Flexed 102 Straight Leg Raise 76 Abduction 21 Internal Rotation 10 External Rotation 38 Right Active Testing Position Supine Flexion w/Knee Flexed 101 Straight Leg Raise 58 Abduction 22 Internal Rotation 4 External Rotation 23 PT-OP-L Special Tests Start: 11/17/19 18:51 Freq: Status: Active Protocol: Document 11/18/19 09:49 LR (Rec: 11/18/19 10:45 [facility] [id number]) Special Tests Lumbar Spine Special Tests Straight Leg Raise Test Results neg B Comments 76 deg L, 59 R Slump Test Results neg B Hip Special Tests Scour Test Test Results neg R PT-OP-M Strength Start: 11/17/19 18:51 Freq: Status: Active Protocol: Document 01/18/20 09:06 LR (Rec: 01/18/20 10:41 [facility] [id number]) Hip Strength Hip Manual Muscle Testing Right Flexion (L2) 4 Good Abduction 4- Good- External Rotation 4+ Good+ Internal Rotation 4 Good Left Flexion (L2) 4 Good Abduction 3+ Fair+ External Rotation 4+ Good+ Internal Rotation 4+ Good+ Knee Strength Knee Manual Muscle Testing Right Flexion (S2) 5 Normal Extension (L3) 5 Normal Left Flexion (S2) 5 Normal Extension (L3) 5 Normal Ankle/Foot Strength Ankle and Foot Manual Muscle Testing Right Dorsiflexion (L4) 5 Normal Plantarflexion (S1) 5 Normal Left Dorsiflexion (L4) 5 Normal Plantarflexion (S1) 5 Normal Comments PF tested seated PT-OP-Q Treatments Start: 11/17/19 18:51 Freq: Status: Active Protocol: Document 02/14/20 12:58 [facility] (Rec: 02/14/20 13:45 [facility] [id number]) Cardio Equipment Recumbent Elliptical (Biodex) Duration (Minutes) 8 Resistance 5 Seat Position 7 Gym Equipment Shuttle Balance red clips Comments fwd & side: WBOS (EO/EC) & NBOS (EO) with progressive dec in hand support Therapeutic Exercises Standing Exercises SLS with mirror Side bilateral Equipment Used counter for intermittent support Comments focus on neutral pelvis/ counteracting hip drop SLS Standing Exercise Name hip hike w/focus on core & glute Side bilateral Reps/Minutes 15 Comments 4 in step with rail squat Side bilateral Reps/Minutes 15 Comments at rail for intermittent support; focus on hip hinge Neuro Re-Education Treatment Balance Activities bosu Equipment 1 rail PRN Comments 1.step ups 5 B with 5 sec balance 2. standing bal x 1 min 3. lunges x 5 darrell SLS Details focus on neutral pelvis B in mirror, pre-swing PT-OP-R Modalities Start: 11/17/19 18:51 Freq: Status: Active Protocol: Document 12/29/19 13:53 [facility] (Rec: 12/29/19 14:27 [facility] [id number]) Ultrasound Therapy Treatment Right Posterior Hip Treatment Duration (minutes) 8 Patient Position Sidelying Coupling Medium Ultrasound Gel Applicator Size (cm2) 10 Frequency Setting (mHz) 1 Mode Setting Continuous Intensity Setting (w/cm2) 1 PT-OP-T Assessment and Plan Start: 11/17/19 18:51 Freq: Status: Active Protocol: Document 02/14/20 12:58 [facility] (Rec: 02/14/20 13:45 [facility] [id number]) Physical Therapy Assessment Goals activties Short Term Goal (STG) Pt will be able to ascend and descend stairs reciprocally without a rail. 12/21-doing better STG Duration achieved [employer] Goal (LTG) Pt will be able to return to all typical activities including housework, grocery shopping, and transition from sit to stand and amb without inc pain. 12/21-can grocery shop without pain, still pain w/sit to stand but easier transition 01/17-only limited with small amt pain w/transitions LTG Duration 03/19 LEFS Impairment 13/80 Short Term Goal (STG) Pt will improve score on LEFS to 25/80 to show improvement in functional abilities. STG Duration achieved Fdc Goal (LTG) Pt will improve score on LEFS to 55/80 to show improvement in functional abilities. LTG Duration achieved strength Short Term Goal (STG) Pt will be indep with HEP. STG Duration achieved Fdc Goal (LTG) Pt will have >4+/5 LE strength B in order to allow improvement in her ability to doing ADLs without pain. 12/21-improved 01/17-improved LTG Duration 03/19 Assessment Summary Assessment Patient has more difficulty with SLS on left, difficulty controlling rotation. Verbal and manual cues for alignment. Continues to improve with decrease in pain and improved activity tolerance. Physical Therapy Plan Frequency and Duration Frequency of Treatment 1-2x/week Duration of Treatment 2 months Plan of Care Start Date 01/18/20 Plan of Care End Date 03/19/20 Therapeutic Interventions Therapeutic Interventions Aquatic Therapy,Balance Training,Gait Training,Home Exercise Program,Joint Mobilizations,Manual Therapy, Neuromuscular Re-education, Patient/Caregiver Education, Self-Care/Home Management,Soft Tissue Mobilization,Taping, Therapeutic Activities, Therapeutic Exercises Modalities Cold Pack/Ice Massage,Electric Stimulation,Hot Packs, Infrared Therapy,Iontophoresis ,Ultrasound Next Visit Focus/Plan Next Note Type Treatment Note Next Visit Plan 2 further PT sessions with emphasis on core and hip stability in functional positions and activities, assure correct HEP performance .
--- NOTE | 2020-03-08 14:41 | PT.OTN ---
Current Diagnoses Gluteal tendinitis, right hip (03/08/20) Difficulty in walking, not elsewhere classified (03/08/20) Abnormal posture (03/08/20) Weakness (03/08/20) Physical Therapy Treatment Note PT-OP-A Visit Information Start: 11/17/19 18:51 Freq: Status: Active Protocol: Document 03/08/20 13:47 [facility] (Rec: 03/08/20 14:41 [facility] [id number]) Out-Patient Physical Therapy Visit Information Visit Information Visit Type Discharge Summary Visit Start Time 13:45 Visit Stop Time 14:30 Total Visit Minutes 45 Visit Number 20 Number of DISPATCH[employer] Visits 0 PT-OP-B Current Condition Start: 11/17/19 18:51 Freq: Status: Active Protocol: Document 11/18/19 09:49 [facility] (Rec: 11/18/19 10:45 [facility] [id number]) Current Condition History of Current Condition Onset Date early July Current Complaints R hip History of Current Condition Pt stepped backwards and hit her upper glutes into a kitchen counter corner. Pt reprots pain was excrutiating and she felt like she couldn't put weight into it at first. She iced it but it didn't do much good. Pt feels like what is injured is deep. Pt reports she has had good results with her L shoulder rehab with [facility] and feels like it would be helpful in this hip too. Pt reports pain gets so bad that she gets nauseus. She did not get checked out immediately d/ t COVID concerns. Reports it is all she can do to get through the grocery store 1x/ week. Pt has history of back pain that flares up that started 30 years ago d/t missing a step as she was coming down the stairs and ended up bouncing down on her butt. Pt reports she cannot do her chores around the house and does one thing a day and pays for it after. Pt has to use the rails to do reciprocal gait but where there is no rails she has to do step to. Prior she was able to do reciprocally without rail. She likes to stand to quilt and that does not seem to bother her except that she gets tired faster. Pt reprots she is really tired and feels like she is getting exhausted. Prior Treatments and Tests pain meds, PT for L shoulder after [facility] Treatment Goals Patient/Caregiver Goals be able to walk and move to be able to travel with family, be able to tolerate long drives and transitions from sitting to standing, not to feel limited in activity PT-OP-C Subjective Start: 11/17/19 18:51 Freq: Status: Active Protocol: Document 03/08/20 13:47 [facility] (Rec: 03/08/20 14:41 [facility] [id number]) OP-PT Subjective Patient Comments Patient Comments Pt reprots bumping into TV stand a couple weeks ago and since then has had a slight inc in pain to 2-3/10 now. Pt reports it is only bothering her whens he first gets up. PT-OP-F Manual Assessment Start: 11/17/19 18:51 Freq: Status: Active Protocol: Document 11/18/19 09:49 [facility] (Rec: 11/18/19 10:45 [facility] [id number]) Manual Assessments Soft Tissue Assessment Soft Tissue Mobility Assessment R QL tight & R glutes Joint Mobility Assessment Joint Mobility Assessment Iliac crest higher on R & equal greater trochanters PT-OP-G Mobility & Gait Start: 11/17/19 18:51 Freq: Status: Active Protocol: Document 11/18/19 09:49 [facility] (Rec: 11/18/19 10:45 [facility] [id number]) OP Gait Assessment Comments Gait Comments Inc lat lean and dec stance time on RLE, dec push off B PT-OP-J Posture/Palpation/Skin Start: 11/17/19 18:51 Freq: Status: Active Protocol: Document 11/18/19 09:49 [facility] (Rec: 11/18/19 11:01 [facility] [id number]) Posture Evaluation Comments Posture Comments fwd lean at hip and inc kyphosis PT-OP-K Range of Motion Start: 11/17/19 18:51 Freq: Status: Active Protocol: Document 11/18/19 09:49 [facility] (Rec: 11/18/19 10:45 [facility] [id number]) Hip Goniometric Range of Motion Hip Left Active Flexion w/Knee Flexed 102 Straight Leg Raise 76 Abduction 21 Internal Rotation 10 External Rotation 38 Right Active Testing Position Supine Flexion w/Knee Flexed 101 Straight Leg Raise 58 Abduction 22 Internal Rotation 4 External Rotation 23 PT-OP-L Special Tests Start: 11/17/19 18:51 Freq: Status: Active Protocol: Document 11/18/19 09:49 [facility] (Rec: 11/18/19 10:45 [facility] [id number]) Special Tests Lumbar Spine Special Tests Straight Leg Raise Test Results neg B Comments 76 deg L, 59 R Slump Test Results neg B Hip Special Tests Scour Test Test Results neg R PT-OP-M Strength Start: 11/17/19 18:51 Freq: Status: Active Protocol: Document 03/08/20 13:47 [facility] (Rec: 03/08/20 14:41 [facility] [id number]) Hip Strength Hip Manual Muscle Testing Right Flexion (L2) 4+ Good+ Extension (S1) 4 Good Abduction 4 Good External Rotation 4+ Good+ Internal Rotation 4 Good Left Flexion (L2) 4 Good Extension (S1) 4 Good Abduction 4 Good External Rotation 4 Good Internal Rotation 5 Normal Knee Strength Knee Manual Muscle Testing Right Flexion (S2) 5 Normal Extension (L3) 5 Normal Left Flexion (S2) 5 Normal Extension (L3) 5 Normal Ankle/Foot Strength Ankle and Foot Manual Muscle Testing Right Dorsiflexion (L4) 5 Normal Plantarflexion (S1) 5 Normal Left Dorsiflexion (L4) 5 Normal Plantarflexion (S1) 5 Normal Comments PF tested seated PT-OP-Q Treatments Start: 11/17/19 18:51 Freq: Status: Active Protocol: Document 03/08/20 13:47 [facility] (Rec: 03/08/20 14:41 [facility] [id number]) Cardio Equipment Recumbent Elliptical (Biodex) Duration (Minutes) 7 Resistance 5 Seat Position 7 Therapeutic Exercises Sitting Exercises flex Sitting Exercise Name single leg isometric Side bilateral Reps/Minutes 10 sec x2 glut stretch Side bilateral Reps/Minutes 30 sec Standing Exercises SLS Standing Exercise Name focus on no lat lean Side bilateral lunge Standing Exercise Name at counter Side bilateral Reps/Minutes 10 Comments walking squat Side bilateral Reps/Minutes 15 Comments at counter Self-Care/Home Management Treatment Education Other Education Reveiw HEP & frequency and importance, self STM with tennis ball at wall PT-OP-R Modalities Start: 11/17/19 18:51 Freq: Status: Active Protocol: Document 12/29/19 13:53 [facility] (Rec: 12/29/19 14:27 [facility] [id number]) Ultrasound Therapy Treatment Right Posterior Hip Treatment Duration (minutes) 8 Patient Position Sidelying Coupling Medium Ultrasound Gel Applicator Size (cm2) 10 Frequency Setting (mHz) 1 Mode Setting Continuous Intensity Setting (w/cm2) 1 PT-OP-T Assessment and Plan Start: 11/17/19 18:51 Freq: Status: Active Protocol: Document 03/08/20 13:47 [facility] (Rec: 03/08/20 14:41 [facility] [id number]) Physical Therapy Assessment Goals activties Short Term Goal (STG) Pt will be able to ascend and descend stairs reciprocally without a rail. 12/21-doing better STG Duration achieved Nutritional Assistant Goal (LTG) Pt will be able to return to all typical activities including housework, grocery shopping, and transition from sit to stand and amb without inc pain. 12/21-can grocery shop without pain, still pain w/sit to stand but easier transition 01/17-only limited with small amt pain w/transitions LTG Duration min pain reported LEFS Impairment 13/80 Short Term Goal (STG) Pt will improve score on LEFS to 25/80 to show improvement in functional abilities. STG Duration achieved Nutritional Assistant Goal (LTG) Pt will improve score on LEFS to 55/80 to show improvement in functional abilities. LTG Duration achieved strength Short Term Goal (STG) Pt will be indep with HEP. STG Duration achieved Residential Goal (LTG) Pt will have >4+/5 LE strength B in order to allow improvement in her ability to doing ADLs without pain. 12/21-improved 01/17-improved LTG Duration some improvement since last testting Assessment Summary Assessment Pt required some cueing with exercises for good form especially lunges and squats. Encouraged to do stretching and self release with tennis ball for relief. Discussed importance of cont strength & balance. Pt is d/c at this time d/t plateau and meeting of most goals. Physical Therapy Plan Discharge Physical Therapy Discharge Reasons Goals Met
== END 2020-04-14 13:27 | disposition home or self-care (01) ==
LOC: PHYS 13:45
PROVIDERS: Family Provider Physician Assistant; PCP Physician Assistant; Referring Provider Student in an Organized Health Care Education/Training Program; Visit Provider Student in an Organized Health Care Education/Training Program
DX: M76.01 Gluteal tendinitis, right hip (principal); R53.1 Weakness; R29.3 Abnormal posture; R26.2 Difficulty in walking, not elsewhere classified
CPT/HCPCS: 97010; 97035; 97110; 97112; 97140; 97162; 97535

== ENCOUNTER → 2020-04-28 13:14 | Outpatient (CLI) | payer MEDICARE, OTHER, SELFPAY ==
[2020-04-28 13:36] LABS: COVID19 -Nasal RAPID Negative (Negative)
== END ==
PROVIDERS: Family Provider Physician Assistant; PCP Physician Assistant; Visit Provider Nurse Practitioner
DX: Z11.59 Encounter for screening for other viral diseases (principal)
CPT/HCPCS: 87635